=== PATIENT | female | born 1940 | race Caucasian/White ===

== ENCOUNTER → 2017-09-12 11:34 | Outpatient (CLI) | payer MEDICARE, BC, SELFPAY | PROVIDERS: PCP Internal Medicine; Visit Provider Internal Medicine | DX: R05 Cough (principal) | CPT/HCPCS: 71046 ==

== ENCOUNTER → 2017-11-30 12:08 | Outpatient (CLI) | payer MEDICARE, BC, SELFPAY ==
--- NOTE | 2017-11-30 | DI.CT.S_ITS ---
PROCEDURE: CT LE LT W CON INDICATIONS: LEFT ANKLE TECHNIQUE: Noncontrast 1-1.5 mm axial sections acquired from above the tibiotalar joint to the bottom of the calcaneus, with coronal and sagittal reformats. COMPARISON: [facility], CR, FOOT 3V LEFT, 04/09/2014, 0:20. [facility], MR, ANKLE WITHOUT CONTRAST, 12/17/2014, 12:12. [facility], CR, XR ANKLE 3VW LT, 12/23/2014, 10:18. [facility] [place], CR, XR ANKLE 3VW LT, 01/21/2015, 13:37. Also, 7 images from [facility] (right and left feet) are reviewed. The date of this set of images is not available from the CD provided. FINDINGS: Image quality: Excellent. Bones: There is relative osteopenia and no acute trauma found. Note is made of a healed distal fibular diaphyseal fracture from trauma documented in December of 2014. No acute or subacute trauma is found. There is a mild to moderate degree of thinning of the joint interspace at the tibiotalar joint, without loose body or joint effusion. At the fibular-tail are margins malalignment is not found. Small accessory ossicle measuring approximately 3 x 5 mm is present just anterior to the inferior tip of the lateral malleolus but chronic in appearance and likely an old avulsion fragment or accessory ossicle. Expected calcaneal trabecular space lucencies are present which do not indicate underlying osteomyelitis or trauma. There is a normal minimally degenerated relationship between the distal calcaneus and the adjacent cuboid bone. However, the talonavicular articulation is subluxed with the tailus directed inferiorly in relationship to the normal orientation of the proximal articular surface of the navicular bone. This has been previously present on foot plain films from 01/21/15 and has not appreciably worsened. Over the remaining hindfoot structures and articulations, and through the midfoot and visualized forefoot no trauma is found. Soft tissues: No evidence of ligamentous disruption is seen. IMPRESSION: Chronic degenerative changes and ligamentous laxity are seen, similar if not equivalent to that previously present during prior plain film imaging of the left ankle from 01/21/15. There is an associated inferior subluxation of the distal tailus articular surface against the proximal navicular bone articular surface seen on the lateral projection reformatt imaging as was previously the case also on 2015 plain films. Healed distal fibular fracture present in 2014, initially identified during ankle MR study 12/17/14. Dictated by: Jason Romeo M.D. on 11/30/2017 at 16:08 Approved by: Jason Romeo M.D. on 11/30/2017 at 16:20
== END ==
PROVIDERS: PCP Internal Medicine; Visit Provider Podiatrist
DX: S99.912A Unspecified injury of left ankle, initial encounter (principal); M25.572 Pain in left ankle and joints of left foot; E11.42 Type 2 diabetes mellitus with diabetic polyneuropathy; M14.672 Charcot's joint, left ankle and foot
CPT/HCPCS: 73700

== ENCOUNTER → 2017-12-20 07:15 | Outpatient (CLI) | payer MEDICARE, BC, SELFPAY ==
[2017-12-20 08:16] LABS: Hemoglobin A1C% w Est Avg Glu 6.2 % (4.0-6.0)
[2017-12-20 08:20] LABS: Alanine Aminotransferase 17 IU/L (9-52); Aspartate Aminotransferase 16 IU/L (14-36); BUN Creatinine Ratio 14.4 (6-22); Blood Urea Nitrogen 13 mg/dL (7-17); Calcium 8.9 mg/dL (8.4-10.2); Carbon Dioxide 30 mmol/L (22-32); Chloride 98 mmol/L (98-107); Cholesterol 171 mg/dL (140-199); Estimated Glomerular Filt Rate > 60.0 mL/min (>60); Glucose 110 mg/dL (80-110); HDL Cholesterol 68 mg/dL (40-60); HEMOLYSIS < 15 (0-50); LDL Cholesterol Calculated 87 mg/dL (<100); Potassium 4.4 mmol/L (3.4-5.1); Sodium 138 mmol/L (137-145); Triglycerides 79 mg/dL (35-150)
== END ==
PROVIDERS: PCP Internal Medicine; Visit Provider Internal Medicine
DX: E11.9 Type 2 diabetes mellitus without complications (principal); I10 Essential (primary) hypertension; E78.00 Pure hypercholesterolemia, unspecified
CPT/HCPCS: 36415; 80048; 80061; 83036; 84450; 84460

== ENCOUNTER → 2018-06-16 07:08 | Outpatient (CLI) | payer MEDICARE, SELFPAY ==
[2018-06-16 08:44] LABS: Hemoglobin A1C% w Est Avg Glu 5.8 % (4.0-6.0)
[2018-06-16 08:54] LABS: Alanine Aminotransferase 14 IU/L (9-52); Aspartate Aminotransferase 15 IU/L (14-36); BUN Creatinine Ratio 13.3 (6-22); Blood Urea Nitrogen 12 mg/dL (7-17); Carbon Dioxide 26 mmol/L (22-32); Chloride 101 mmol/L (98-107); Cholesterol 165 mg/dL (140-199); Estimated Glomerular Filt Rate > 60.0 mL/min (>60); Glucose 100 mg/dL (80-110); HDL Cholesterol 72 mg/dL (40-60); HEMOLYSIS < 15 (0-50); LDL Cholesterol Calculated 77 mg/dL (<100); Potassium 4.3 mmol/L (3.4-5.1); Sodium 137 mmol/L (137-145); Triglycerides 79 mg/dL (35-150)
[2018-06-16 09:37] LABS: TSH w/ Reflex to FT4 1.51 uIU/mL (0.47-4.68)
== END ==
PROVIDERS: PCP Internal Medicine; Visit Provider Internal Medicine
DX: I10 Essential (primary) hypertension (principal); E78.00 Pure hypercholesterolemia, unspecified; E03.9 Hypothyroidism, unspecified; E11.9 Type 2 diabetes mellitus without complications
CPT/HCPCS: 36415; 80048; 80061; 83036; 84443; 84450; 84460

== ENCOUNTER → 2018-12-14 07:15 | Outpatient (CLI) | payer MEDICARE, SELFPAY ==
[2018-12-14 08:34] LABS: Alanine Aminotransferase 11 IU/L (9-52); Aspartate Aminotransferase 16 IU/L (14-36); Blood Urea Nitrogen 12 mg/dL (7-17); Calcium 9.7 mg/dL (8.4-10.2); Carbon Dioxide 28 mmol/L (22-32); Chloride 98 mmol/L (98-107); Cholesterol 168 mg/dL (140-199); Estimated Glomerular Filt Rate > 60.0 mL/min (>60); Glucose 104 mg/dL (80-110); HDL Cholesterol 79 mg/dL (40-60); HEMOLYSIS < 15 (0-50); LDL Cholesterol Calculated 71 mg/dL (<100); Sodium 134 mmol/L (137-145); Triglycerides 88 mg/dL (35-150)
== END ==
PROVIDERS: PCP Internal Medicine; Visit Provider Internal Medicine
DX: I10 Essential (primary) hypertension (principal); E78.5 Hyperlipidemia, unspecified; E11.9 Type 2 diabetes mellitus without complications
CPT/HCPCS: 36415; 80048; 80061; 83036; 84450; 84460

== ENCOUNTER → 2019-10-12 07:11 | Outpatient (CLI) | payer MEDICARE, SELFPAY ==
[2019-10-12 09:40] LABS: Hemoglobin A1C% w Est Avg Glu 6.1 % (4.0-6.0)
[2019-10-12 10:10] LABS: Alanine Aminotransferase 8 IU/L (<35); Albumin Globulin Ratio 1.5 (1.0-2.8); Alkaline Phosphatase 69 U/L (38-126); Aspartate Aminotransferase 17 IU/L (14-36); Bilirubin Total 0.5 mg/dL (0.2-1.3); Blood Urea Nitrogen 9 mg/dL (7-17); Calcium 9.3 mg/dL (8.4-10.2); Carbon Dioxide 27 mmol/L (22-32); Chloride 98 mmol/L (98-107); Cholesterol 181 mg/dL (140-199); Estimated Glomerular Filt Rate > 60.0 mL/min (>60); Globulin 2.7 g/dL (1.7-4.1); Glucose 95 mg/dL (80-110); HDL Cholesterol 93 mg/dL (40-60); HEMOLYSIS < 15 (0-50); LDL Cholesterol Calculated 76 mg/dL (<100); Potassium 4.9 mmol/L (3.4-5.1); Sodium 133 mmol/L (137-145); Total Protein 6.7 g/dL (6.3-8.2); Triglycerides 62 mg/dL (35-150)
[2019-10-12 10:33] LABS: TSH w/ Reflex to FT4 0.98 uIU/mL (0.47-4.68)
== END ==
PROVIDERS: PCP Internal Medicine; Referring Provider Internal Medicine; Visit Provider Internal Medicine
DX: I10 Essential (primary) hypertension (principal); E78.00 Pure hypercholesterolemia, unspecified; E11.9 Type 2 diabetes mellitus without complications; E03.9 Hypothyroidism, unspecified
CPT/HCPCS: 36415; 80053; 80061; 83036; 84443

== ENCOUNTER → 2020-04-22 10:06 | Outpatient (CLI) | payer MEDICARE, SELFPAY ==
[2020-04-22 10:43] LABS: Hemoglobin A1C% w Est Avg Glu 5.8 % (4.0-6.0)
[2020-04-22 11:00] LABS: Alanine Aminotransferase 10 IU/L (<35); Albumin Globulin Ratio 1.5 (1.0-2.8); Alkaline Phosphatase 71 U/L (38-126); Aspartate Aminotransferase 22 IU/L (14-36); BUN Creatinine Ratio 14.5 (6-22); Bilirubin Total 0.3 mg/dL (0.2-1.3); Blood Urea Nitrogen 11 mg/dL (7-17); Calcium 9.2 mg/dL (8.4-10.2); Carbon Dioxide 30 mmol/L (22-32); Chloride 97 mmol/L (98-107); Cholesterol 182 mg/dL (140-199); Estimated Glomerular Filt Rate > 60.0 mL/min (>60); Globulin 2.7 g/dL (1.7-4.1); Glucose 89 mg/dL (80-110); HDL Cholesterol 75 mg/dL (40-60); HEMOLYSIS < 15 (0-50); LDL Cholesterol Calculated 87 mg/dL (<100); Potassium 4.6 mmol/L (3.4-5.1); Sodium 130 mmol/L (137-145); Total Protein 6.7 g/dL (6.3-8.2); Triglycerides 100 mg/dL (35-150)
== END ==
PROVIDERS: PCP Internal Medicine; Referring Provider Internal Medicine; Visit Provider Internal Medicine
DX: I10 Essential (primary) hypertension (principal); E11.9 Type 2 diabetes mellitus without complications; E78.5 Hyperlipidemia, unspecified
CPT/HCPCS: 36415; 80053; 80061; 83036

== ENCOUNTER → 2020-07-08 12:45 | Outpatient (CLI) | payer MEDICARE, SELFPAY ==
--- NOTE | 2020-07-08 | DI.MG.S_ITS ---
BILATERAL DIGITAL DIAGNOSTIC MAMMOGRAM 3D/2D: 07/08/2020 CLINICAL: Right breast heaviness. Comparison is made to exams dated: 10/12/2016 mammogram, 09/27/2014 mammogram, and 09/26/2013 mammogram - [facility]. There are scattered fibroglandular elements in both breasts. 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 No significant masses, suspicious calcifications, or other findings are seen in either breast. IMPRESSION: INCOMPLETE: NEEDS ADDITIONAL IMAGING EVALUATION There is no abnormality seen in the right breast to correspond with the tenderness at 12 o'clock, however, ultrasound is recommended. Ultrasound will be performed immediately following the current exam. This exam was interpreted at Station ID: [id number]. NOTE: For mammograms, a report in lay terms will be sent to the patient. Approximately 15% of breast malignancies will not be visualized mammographically. In the management of a palpable breast mass, a negative mammogram must not discourage biopsy of a clinically suspicious lesion. Electronically Signed By: Kobe Jameson M.D. [email or web address]/:07/08/2020 13:34:01 ACR BI-RADS Category 0: Incomplete 3340F
--- NOTE | 2020-07-08 | DI.US.S_ITS ---
LIMITED ULTRASOUND OF RIGHT BREAST: 07/08/2020 CLINICAL: Focal right breast pain. Comparison is made to exams dated: 07/08/2020 mammogram, 10/12/2016 mammogram, 09/27/2014 mammogram, 09/26/2013 mammogram, 09/25/2012 mammogram, and 09/23/2011 mammogram - [facility]. Real-time ultrasound of the right breast 11-1 o'clock region was performed on the area of interest. No discrete cystic or solid mass lesion identified in the area of focal pain. IMPRESSION: NEGATIVE There is no sonographic evidence of malignancy. There are no abnormalities seen in the right breast to correspond with the pain at 11-1 o'clock, however, clinical followup is recommended. A 1 year screening mammogram is recommended. This exam was interpreted at Station ID: [id number]. Electronically Signed By: Kobe Jameson M.D. ddp/:07/08/2020 14:06:32 letter sent: Clinical Evaluation Ultrasound BI-RADS: 1 Negative
== END ==
PROVIDERS: PCP Internal Medicine; Referring Provider Internal Medicine; Visit Provider Internal Medicine
DX: R92.8 Other abnormal and inconclusive findings on diagnostic imaging of breast (principal); N64.4 Mastodynia
CPT/HCPCS: 76642; 77066; G0279

== ENCOUNTER → 2020-11-28 07:17 | Outpatient (CLI) | payer MEDICARE, SELFPAY ==
[2020-11-28 08:26] LABS: Hemoglobin A1C% w Est Avg Glu 5.9 % (4.0-6.0)
[2020-11-28 08:30] LABS: Alanine Aminotransferase 10 IU/L (<35); Albumin Globulin Ratio 1.6 (1.0-2.8); Alkaline Phosphatase 62 U/L (38-126); Aspartate Aminotransferase 17 IU/L (14-36); BUN Creatinine Ratio 12.5 (6-22); Bilirubin Total 0.4 mg/dL (0.2-1.3); Blood Urea Nitrogen 9 mg/dL (7-17); Calcium 9.2 mg/dL (8.4-10.2); Carbon Dioxide 32 mmol/L (22-32); Chloride 93 mmol/L (98-107); Cholesterol 184 mg/dL (140-199); Estimated Glomerular Filt Rate > 60.0 mL/min (>60); Globulin 2.5 g/dL (1.7-4.1); Glucose 114 mg/dL (80-110); HDL Cholesterol 96 mg/dL (40-60); HEMOLYSIS < 15 (0-50); LDL Cholesterol Calculated 76 mg/dL (<100); Potassium 4.7 mmol/L (3.4-5.1); Sodium 128 mmol/L (137-145); Total Protein 6.5 g/dL (6.3-8.2); Triglycerides 61 mg/dL (35-150)
[2020-11-28 16:17] LABS: Microalbumi Creatinin Ratio Ur 64.4 ug/mg CR (<30); Microalbumin Urine Random 3.8 mg/dL (0-1.6)
== END ==
PROVIDERS: PCP Internal Medicine; Referring Provider Internal Medicine; Visit Provider Internal Medicine
DX: M81.0 Age-related osteoporosis without current pathological fracture (principal); E11.9 Type 2 diabetes mellitus without complications; E78.5 Hyperlipidemia, unspecified; I10 Essential (primary) hypertension
CPT/HCPCS: 36415; 80053; 80061; 82043; 82306; 82570; 83036

== ENCOUNTER 2021-04-02 10:29 | Emergency (ER) | payer MEDICARE, SELFPAY ==
[2021-04-02] VITALS (12 sets, daily range): BP systolic 139–192; BP diastolic 65–80; PULSE 71–91; RESP 15–24; TEMP 36.6; O2SAT 96–100; BMI 30.4
--- NOTE | 2021-04-02 10:38 | DI.RAD.S_ITS ---
PROCEDURE: XR CHEST 1V INDICATIONS: chest pain TECHNIQUE: One view of the chest was acquired. COMPARISON: [facility], CR, XR CHEST 2V, 09/12/2017, 11:54. FINDINGS: Surgical changes and devices: None. Lungs and pleura: Lungs are clear. No pleural effusions or pneumothorax. Mediastinum: Mediastinal contours appear normal. Heart size is normal. Atherosclerotic vascular calcification noted in the aortic arch. Bones and chest wall: No suspicious bony lesions. Overlying soft tissues appear unremarkable. IMPRESSION: No acute cardiopulmonary findings Approved by: Dylan Farah M.D. on 04/02/2021 at 10:26
--- NOTE | 2021-04-02 10:54 | ED.GENADULT ---
HPI - General Adult General Chief complaint: Dizziness Stated complaint: Irregular heartbeat- sent by [facility] Time Seen by Provider: 04/02/21 10:39 Source: patient Mode of arrival: Ambulatory History of Present Illness HPI narrative: Patient is an 80-year-old female. History of high blood pressure. Not on anticoagulation who is sent over from the walk-in clinic for evaluation of approximately 1 week of occasional episodes of having palpitations and lightheadedness. The most recent event was this morning. She feels that it occurs mostly when she stands up. Lasts seconds to minutes and then resolves. No chest pain associated with this. No fevers. Has never had anything like this in the past. Has been taking all of her medications as directed. Related Data Home Medications Medication Instructions Recorded Confirmed AZELASTINE HYDROCHLORIDE (ASTELIN) 2 spray INTRANASAL PRN PRN #200 05/02/12 actuation LEVOTHYROXINE SODIUM (#LEVOTHROID 0.1 mg PO QDAY #0 05/02/12 OFF MARKET) albuterol sulfate 90 mcg/actuation 1 puff INH #8.5 gm 05/02/12 aerosol inhaler (Proventil HFA) atorvastatin 10 mg tablet (Lipitor) 10 mg PO HS #0 05/02/12 cholecalciferol (vitamin D3) 10 5,000 unit PO QDAY #0 05/02/12 mcg (400 unit) chewable tablet (Vitamin D3) hydrochlorothiazide 12.5 mg 25 mg PO QDAY #0 05/02/12 capsule (Microzide) raloxifene 60 mg tablet (Evista) 60 mg PO QDAY #0 05/02/12 ACETAMINOPHEN 325 mg PO Q4HP #0 10/16/12 COENZYME Q10/VITAMIN E (CO-Q-10) 200 mg PO QDAY #0 10/16/12 ascorbic acid (vitamin C) 500 mg 500 mg PO QDAY #0 10/16/12 tablet celecoxib 200 mg capsule (Celebrex) 200 mg PO QDAY #0 10/16/12 docusate sodium 100 mg capsule 100 PO PRN #0 10/16/12 esomeprazole magnesium 40 mg 40 mg PO QPM #0 10/16/12 capsule,delayed release (Nexium) liothyronine 5 mcg tablet (Cytomel) 5 mcg PO HS #0 10/16/12 metformin 500 mg tablet 500 mg PO TIDCC #0 10/16/12 (Glucophage) psyllium husk 0.52 gram capsule 0.52 gm PO QDAY #0 10/16/12 (Metamucil) fluticasone 250 mcg-salmeterol 50 1 puff INH BID #0 12/02/15 mcg/dose blistr powdr for inhalation (Advair Diskus) betamethasone dipropionate 0.05 % 1 papa TOPICAL PRN PRN #0 06/01/16 topical cream clobetasol-emollient 0.05 % 1 papa TOPICAL PRN PRN #0 06/01/16 topical cream Previous Rx's Medication Instructions Recorded aspirin 81 mg tablet,delayed 81 mg PO BID #60 tab 06/18/16 release hydroxyzine pamoate 25 mg capsule 25 mg PO Q4HP PRN #60 cap 06/18/16 (Vistaril) oxycodone 5 mg tablet 5 mg PO Q4HP PRN #90 tab 06/18/16 Allergies Allergy/AdvReac Type Severity Reaction Status Date / Time adhesive tape [ADHESIVE TAPE] Allergy Severe PAPER TAPE Verified 04/02/21 10:39 CAUSES RASH, BLISTERS Review of Systems Constitutional Constitutional: Denies fever(s) and Denies headache(s) ENT Ears, Nose, Mouth, and Throat: Denies headache(s) Cardiovascular Cardiovascular: Denies chest pain, Denies syncope, Reports rapid heart rate, Reports lightheadedness and Denies dyspnea Respiratory Respiratory: Denies dyspnea Gastrointestinal Gastrointestinal: Denies nausea and Denies vomiting Musculoskeletal Musculoskeletal: Reports system reviewed and no additional complaints, except as documented Integumentary/Breasts Skin/Breast: Reports system reviewed and no additional complaints, except as documented Neurologic Neurologic: Denies syncope and Denies headache(s) Hematologic/Lymphatic On Anticoagulants: No Patient History Social History Smoking Status: Unknown if ever smoked Smoking Status: Unknown if ever smoked alcohol intake frequency: holidays/special occasions only Substance Use Type: does not use Exam Initial Vital Signs Initial Vital Signs: Vital Signs Temperature 97.8 F 04/02/21 10:34 Pulse Rate 71 04/02/21 10:34 Respiratory Rate 19 04/02/21 10:34 Blood Pressure 192/80 H 04/02/21 10:34 Pulse Oximetry 100 04/02/21 10:34 HENMT Head: normal to inspection and normocephalic Eyes General: appearance normal, both eyes and all related structures Resp Effort & Inspection: normal respiratory effort Auscultation: clear to auscultation bilaterally Cardio Rate: regular rate Rhythm: regular rhythm GI Inspection: normal to inspection Skin General: no rashes or lesions noted Neuro General: patient alert, patient awake, patient oriented x3 and moves all extremities Extrem General: normal to inspection and capillary refill normal Psych Appearance: grossly normal and well kempt Scores GCS Jamul coma scale eye opening: Spontaneous Jamul coma scale verbal response: Orientated Diaz coma scale motor response: Obey commands Jamul coma scale total score: 15 Course Orders Ordered: ED Orders 04/02/21 10:00 Thyroid Stimulating Hormone Stat 04/02/21 10:38 XR chest 1V Stat Complete Blood Count AUTO DIFF Stat Comprehensive Metabolic Panel Stat Lipase Stat Magnesium Stat Troponin & CK Cardiac Panel Stat EKG-12 Lead Stat 04/02/21 10:39 Partial Thromboplastin Time Stat Prothrombin Time INR Stat Discontinued Medications Sodium Chloride (Normal Saline 0.9%) 1,000 mls @ 500 mls/hr IV BOLUS ONE Stop: 04/02/21 12:55 Last Infusion: 04/02/21 13:21 Dose: 0 mls/hr Documented by: Admin: 04/02/21 11:06 Dose: 500 mls/hr Documented by: EDER Vital Signs Vital signs: Vital Signs - 8 hr 04/02/21 10:34 04/02/21 10:35 04/02/21 10:48 Temperature 97.8 F Pulse Rate 71 76 74 Pulse Rate [Orthostatic Lying] Pulse Rate [Orthostatic Sitting] Pulse Rate [Orthostatic Standing] Respiratory Rate 19 24 Blood Pressure 192/80 H 192/80 H 170/71 H Blood Pressure [Orthostatic Lying] Blood Pressure [Orthostatic Sitting] Blood Pressure [Orthostatic Standing] Pulse Oximetry 100 98 98 04/02/21 10:49 04/02/21 10:51 04/02/21 11:00 Temperature Pulse Rate 81 76 Pulse Rate [Orthostatic Lying] 75 Pulse Rate [Orthostatic Sitting] 74 Pulse Rate [Orthostatic Standing] 75 Respiratory Rate 18 18 Blood Pressure 151/68 H 159/69 H Blood Pressure [Orthostatic Lying] 192/80 H Blood Pressure [Orthostatic Sitting] 170/71 H Blood Pressure [Orthostatic Standing] 151/68 H Pulse Oximetry 98 98 04/02/21 11:30 04/02/21 11:40 04/02/21 12:00 Temperature Pulse Rate 75 88 75 Pulse Rate [Orthostatic Lying] Pulse Rate [Orthostatic Sitting] Pulse Rate [Orthostatic Standing] Respiratory Rate 18 15 19 Blood Pressure 139/65 Blood Pressure [Orthostatic Lying] Blood Pressure [Orthostatic Sitting] Blood Pressure [Orthostatic Standing] Pulse Oximetry 99 100 100 04/02/21 12:30 04/02/21 13:00 04/02/21 13:30 Temperature Pulse Rate 83 78 91 H Pulse Rate [Orthostatic Lying] Pulse Rate [Orthostatic Sitting] Pulse Rate [Orthostatic Standing] Respiratory Rate 20 18 23 Blood Pressure Blood Pressure [Orthostatic Lying] Blood Pressure [Orthostatic Sitting] Blood Pressure [Orthostatic Standing] Pulse Oximetry 100 100 96 Medical Decision Making Lab Data Lab results reviewed: Yes I reviewed the patient's lab results. Result diagrams: 04/02/21 10:38 04/02/21 10:38 Labs: Lab Results 04/02/21 04/02/21 04/02/21 Range/Units 10:00 10:38 10:38 WBC 8.7 (4.5-11.0) X10^3/uL RBC 4.34 (4.0-5.2) X10^6/uL Hgb 11.2 L (12.0-16.0) g/dL Hct 34.4 L (36-46) % MCV 79.3 L (80-100) fL MCH 25.8 L (26-34) PG MCHC 32.5 (30-36) % RDW 17.1 H (11.6-14.8) % Plt Count 370 (150-400) X10^3/uL Neut % (Auto) 73.5 (50-75) % Lymph % (Auto) 15.8 L (25-40) % [place] % (Auto) 8.0 (3-14) % Eos % (Auto) 2.0 (2-4) % Baso % (Auto) 0.7 (0-2) % Neut # (Auto) 6400 (4926-8164) /uL Lymph # (Auto) 1400 (6274-0470) /uL [place] # (Auto) 700 (0-900) /uL Eos # (Auto) 200 (0-450) /uL Baso # (Auto) 100 (0-100) /uL PT (10.1-12.7) SECONDS INR (0.9-1.3) APTT (26.4-36.2) SECONDS Sodium 129 L (137-145) mmol/L Potassium 4.3 (3.4-5.1) mmol/L Chloride 98 (98-107) mmol/L Carbon Dioxide 25 (22-32) mmol/L BUN 10 (7-17) mg/dL Creatinine 0.73 (0.52-1.04) mg/dL Estimated GFR > 60.0 (>60) mL/min BUN/Creatinine Ratio 13.7 (6-22) Glucose 105 (80-110) mg/dL Calcium 9.0 (8.4-10.2) mg/dL Magnesium 1.7 (1.6-2.3) mg/dL Total Bilirubin 0.5 (0.2-1.3) mg/dL AST 19 (14-36) IU/L ALT 10 (<35) IU/L Alkaline Phosphatase 65 (38-126) U/L Total Creatine Kinase 27 L (30-135) U/L CK-MB (CK-2) TNP CK-MB (CK-2) Rel Index TNP Troponin I < 0.012 (0.01-0.034) ng/mL Total Protein 6.8 (6.3-8.2) g/dL Albumin 4.0 (3.5-5.0) g/dL Globulin 2.8 (1.7-4.1) g/dL Albumin/Globulin Ratio 1.4 (1.0-2.8) Lipase 114 (23-300) U/L TSH 0.709 (0.47-4.68) uIU/mL 04/02/21 Range/Units 10:39 WBC (4.5-11.0) X10^3/uL RBC (4.0-5.2) X10^6/uL Hgb (12.0-16.0) g/dL Hct (36-46) % MCV (80-100) fL MCH (26-34) PG MCHC (30-36) % RDW (11.6-14.8) % Plt Count (150-400) X10^3/uL Neut % (Auto) (50-75) % Lymph % (Auto) (25-40) % [place] % (Auto) (3-14) % Eos % (Auto) (2-4) % Baso % (Auto) (0-2) % Neut # (Auto) (0719-9740) /uL Lymph # (Auto) (7764-6637) /uL [place] # (Auto) (0-900) /uL Eos # (Auto) (0-450) /uL Baso # (Auto) (0-100) /uL PT 11.6 (10.1-12.7) SECONDS INR 1.0 (0.9-1.3) APTT 34 (26.4-36.2) SECONDS Sodium (137-145) mmol/L Potassium (3.4-5.1) mmol/L Chloride (98-107) mmol/L Carbon Dioxide (22-32) mmol/L BUN (7-17) mg/dL Creatinine (0.52-1.04) mg/dL Estimated GFR (>60) mL/min BUN/Creatinine Ratio (6-22) Glucose (80-110) mg/dL Calcium (8.4-10.2) mg/dL Magnesium (1.6-2.3) mg/dL Total Bilirubin (0.2-1.3) mg/dL AST (14-36) IU/L ALT (<35) IU/L Alkaline Phosphatase (38-126) U/L Total Creatine Kinase (30-135) U/L CK-MB (CK-2) CK-MB (CK-2) Rel Index Troponin I (0.01-0.034) ng/mL Total Protein (6.3-8.2) g/dL Albumin (3.5-5.0) g/dL Globulin (1.7-4.1) g/dL Albumin/Globulin Ratio (1.0-2.8) Lipase (23-300) U/L TSH (0.47-4.68) uIU/mL Urine Dip Bedside Urine Glucose Negative Bedside Urine Bilirubin - Negative Bedside Urine Ketone - Negative Urine Specific [place] 1.015 Bedside Urine Occult Blood - Negative Bedside Urine pH 6.5 Bedside Urine Protein - Negative Bedside Urine Urobilinogen +/- 1mg Bedside Urine Nitrite - Negative Bedside Urine Leukocytes - Negative Esterase Point of care testing: Urine Dip Bedside Urine Glucose Negative Bedside Urine Bilirubin - Negative Bedside Urine Ketone - Negative Urine Specific [place] 1.015 Bedside Urine Occult Blood - Negative Bedside Urine pH 6.5 Bedside Urine Protein - Negative Bedside Urine Urobilinogen +/- 1mg Bedside Urine Nitrite - Negative Bedside Urine Leukocytes - Negative Esterase Imaging Data Chest x-ray: Radiologist's Impression: [address] [id number] XRay Report Signed Patient: Layla Chowdary MR#: [id number] : 1940 Acct:[id number] Age/Sex: 80 / F Date of Service: 04/02/21 Loc: ED Accession Number: [id number] ?? Procedure: XR chest 1V Ordering Provider: Donte Holt D.O. PROCEDURE:? XR CHEST 1V ? INDICATIONS:? chest pain ? TECHNIQUE:? One view of the chest was acquired.? ? COMPARISON:? [facility], , XR CHEST 2V, 09/12/2017, 11:54. ? FINDINGS:? ? Surgical changes and devices:? None.? ? Lungs and pleura:? Lungs are clear.? No pleural effusions or pneumothorax.? ? Mediastinum:? Mediastinal contours appear normal.? Heart size is normal.? Atherosclerotic vascular calcification noted in the aortic arch. ? Bones and chest wall:? No suspicious bony lesions.? Overlying soft tissues appear unremarkable.? ? IMPRESSION:? No acute cardiopulmonary findings ? ? ? Approved by: Dylan Farah M.D. on 04/02/2021 at 10:26? ECG Data Attestation: I personally reviewed and interpreted this ECG as follows: Interpretation: Sinus rhythm Ventricular rate of 78 Left axis deviation Normal QRS Normal QTC No ST T wave changes Sinus rhythm Ventricular rate is 77 First-degree AV block. Overall to 6 6 milliseconds Normal QRS Normal QTC No ST T changes MDM Narrative Medical decision making narrative: Patient was orthostatic. Was given fluids. She did have episodes of tachycardia here in the ER. Appear to be a sinus tachycardia on the monitor. We were unable to catch this on an EKG. Rest of the patient's labs are unremarkable. She states she would like to be discharged. We did discuss being careful and avoiding falling and following up with her primary doctor to discuss a Holter monitor. Discussed return precautions. She expressed understanding and agreement. Discharge Plan Departure Patient Disposition: Home Clinical Impression: Heart palpitations Instructions: DI for Arrhythmias Activity Restrictions/Additional Instructions: I do recommend that you continue to take all of your medications as directed. Please contact your primary doctor to discuss a follow-up and to discuss the indications for a Holter monitor. Return to the emergency department for any new or worsening symptoms. Prescriptions: No Action atorvastatin [Lipitor] 10 MG tablet 10 mg PO HS Qty: 0 0RF hydrochlorothiazide [Microzide] 12.5 MG capsule 25 mg PO QDAY Qty: 0 0RF raloxifene [Evista] 60 MG tablet 60 mg PO QDAY Qty: 0 0RF LEVOTHYROXINE SODIUM (#LEVOTHROID OFF MARKET) 0.1 mg PO QDAY Qty: 0 0RF AZELASTINE HYDROCHLORIDE (ASTELIN) 2 spray Intranasal PRN PRNQty: 200 0RF albuterol sulfate [Proventil HFA] 90 MCG/PUFF HFA aerosol inhaler 1 puff INH Qty: 8.5 0RF cholecalciferol (vitamin D3) [Vitamin D3] 400 UNIT tablet,chewable 5,000 unit PO QDAY Qty: 0 0RF metformin [Glucophage] 500 MG tablet 500 mg PO TIDCC Qty: 0 0RF esomeprazole magnesium [Nexium] 40 MG capsule,delayed release(DR/EC) 40 mg PO QPM Qty: 0 0RF COENZYME Q10/VITAMIN E (CO-Q-10) 200 mg PO QDAY Qty: 0 0RF liothyronine [Cytomel] 5 MCG tablet 5 mcg PO HS Qty: 0 0RF celecoxib [Celebrex] 200 MG capsule 200 mg PO QDAY Qty: 0 0RF docusate sodium 100 MG capsule 100 PO PRN Qty: 0 0RF psyllium husk [Metamucil] 0.52 GM capsule 0.52 gm PO QDAY Qty: 0 0RF ACETAMINOPHEN 325 mg PO Q4HP Qty: 0 0RF ascorbic acid (vitamin C) 500 MG tablet 500 mg PO QDAY Qty: 0 0RF fluticasone propion-salmeterol [Advair Diskus] 250 MCG/50 MCG blister with device 1 puff INH BID Qty: 0 0RF betamethasone dipropionate 0.05 % cream 1 papa Topical PRN PRNQty: 0 0RF clobetasol-emollient 0.05 % cream 1 papa Topical PRN PRNQty: 0 0RF aspirin 81 MG tablet,delayed release (DR/EC) 81 mg PO BID Qty: 60 1RF oxycodone 5 MG tablet 5 mg PO Q4HP PRNQty: 90 0RF hydroxyzine pamoate [Vistaril] 25 MG capsule 25 mg PO Q4HP PRNQty: 60 1RF Referrals: Miriam Sheridan MD [Primary Care Provider] -
[2021-04-02 11:06] LABS: Add Manual Diff / Slide Review NO; Basophils Absolute Auto 100 /uL (0-100); Basophils Percent Auto 0.7 % (0-2); Eosinophils Absolute Auto 200 /uL (0-450); Hematocrit 34.4 % (36-46); Hemoglobin 11.2 g/dL (12.0-16.0); Lymphocytes Absolute Auto 1400 /uL (1100-4500); Lymphocytes Percent Auto 15.8 % (25-40); Mean Corpuscular HGB Conc 32.5 % (30-36); Mean Corpuscular Hemoglobin 25.8 PG (26-34); Mean Corpuscular Volume 79.3 fL (80-100); Monocytes Absolute Auto 700 /uL (0-900); Neutrophils Absolute Auto 6400 /uL (1500-7000); Neutrophils Percent Auto 73.5 % (50-75); Platelet Count 370 X10^3/uL (150-400); Red Blood Cell Count 4.34 X10^6/uL (4.0-5.2); Red Cell Distribution Width 17.1 % (11.6-14.8); White Blood Cell Count 8.7 X10^3/uL (4.5-11.0)
[2021-04-02 11:06] LABS: Prothrombin Time 11.6 SECONDS (10.1-12.7)
[2021-04-02] MEDS: SODIUM CHLORIDE 0.9% 1,000 ML 500 ML IV (11:06)
[2021-04-02 11:11] LABS: Alanine Aminotransferase 10 IU/L (<35); Albumin Globulin Ratio 1.4 (1.0-2.8); Alkaline Phosphatase 65 U/L (38-126); Aspartate Aminotransferase 19 IU/L (14-36); BUN Creatinine Ratio 13.7 (6-22); Bilirubin Total 0.5 mg/dL (0.2-1.3); Blood Urea Nitrogen 10 mg/dL (7-17); Carbon Dioxide 25 mmol/L (22-32); Chloride 98 mmol/L (98-107); Creatine Kinase 27 U/L (30-135); Estimated Glomerular Filt Rate > 60.0 mL/min (>60); Globulin 2.8 g/dL (1.7-4.1); Glucose 105 mg/dL (80-110); HEMOLYSIS < 15 (0-50); Lipase 114 U/L (23-300); Magnesium 1.7 mg/dL (1.6-2.3); Potassium 4.3 mmol/L (3.4-5.1); Sodium 129 mmol/L (137-145); Total Protein 6.8 g/dL (6.3-8.2)
[2021-04-02 11:16] LABS: PTT Partial Thromboplastin Tim 34 SECONDS (26.4-36.2)
--- NOTE | 2021-04-02 11:21 | PC.NURSE ---
Pt heart rate noted to be in the 130's post ambulation to the bathroom, Dr. oHlt aware, heart rate now 71 after resting on stretcher.
[2021-04-02 11:23] LABS: Troponin I < 0.012 ng/mL (0.01-0.034)
[2021-04-02 12:00] LABS: Thyroid Stimulating Hormone 0.709 uIU/mL (0.47-4.68)
--- NOTE | 2021-04-02 12:11 | PC.NURSE ---
Pt hit call arian and reports she wants to leave, pt currently hooked up to EKG machine by RT. Updated pt on current plan of care. Pt further states she wants to leave, states she is a diabetic and wants a real meal, informed pt we can check her blood sugar, pt declined. Notified Dr. Holt to further speak to pt.
== END 2021-04-02 13:42 | disposition home or self-care (01) ==
PROVIDERS: Emergency Provider Emergency Medicine; PCP Internal Medicine
DX: R00.2 Palpitations (principal)
CPT/HCPCS: 36415; 71045; 80053; 81003; 82550; 83690; 83735; 84443; 84484; 85025; 85610; 85730; 93005; 96360; 96361; 99284

== ENCOUNTER → 2021-04-16 15:22 | Outpatient (CLI) | payer MEDICARE, SELFPAY ==
--- NOTE | 2021-05-05 10:07 | P.HOLT.S_ITS ---
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 Date Patient Seen: 04/16/21 Requesting provider: Miriam Sheridan Indication: Palpitations Duration of monitoring (days): 7 Diary information: There was 1 patient triggered event and 2 patient diary entries All 3 of these patient events were variably associated with (within 45 seconds) sinus rhythm, simple PACs, and simple PVCs Data: Minimum heart rate identified was 44 beats per minute at 03:59 on 04/19/2021 Maximum sinus heart rate was 122 beats per minute at 08:04 on 04/18/2021 Maximum overall heart rate was 200 beats per minute at 14:01 on 04/21/2021 during a run of SVT Less than 1% of identified beats were ventricular or supraventricular ectopic in origin, which would classify them as rare. 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 There were also occasional very brief runs of SVT as above Clinical correlation suggested
== END ==
PROVIDERS: PCP Internal Medicine; Referring Provider Family Medicine Adult Medicine; Visit Provider Family Medicine Adult Medicine
DX: R00.2 Palpitations (principal)
CPT/HCPCS: 93242; 93244

== ENCOUNTER → 2021-07-10 14:12 | Outpatient (CLI) | payer MEDICARE, SELFPAY ==
--- NOTE | 2021-07-10 | DI.MG.S_ITS ---
BILATERAL DIGITAL SCREENING MAMMOGRAM 3D/2D WITH CAD: 07/10/2021 CLINICAL: Routine screening. Family history of breast cancer. Comparison is made to exams dated: 07/08/2020 ultrasound, 07/08/2020 mammogram, 10/12/2016 mammogram, and 09/27/2014 mammogram - [facility]. The tissue of both breasts is predominantly fatty. Current study was also evaluated with a Computer Aided Detection (CAD) system. There are benign diffuse calcifications in both breasts. There also are benign vascular calcifications in both breasts. No significant masses, calcifications, or other findings are seen in either breast. There has been no significant interval change. IMPRESSION: BENIGN There is no mammographic evidence of malignancy. A 1 year screening mammogram is recommended. This exam was interpreted at Station ID: [id number]. NOTE: For mammograms, a report in lay terms will be sent to the patient. Approximately 15% of breast malignancies will not be visualized mammographically. In the management of a palpable breast mass, a negative mammogram must not discourage biopsy of a clinically suspicious lesion. Electronically Signed By: Phi pearson/omid:07/10/2021 15:31:00 letter sent: Normal Exam ACR BI-RADS Category 2: Benign Finding(s) 3342F
== END ==
PROVIDERS: PCP Internal Medicine; Referring Provider Internal Medicine; Visit Provider Internal Medicine
DX: Z12.31 Encounter for screening mammogram for malignant neoplasm of breast (principal); Z80.3 Family history of malignant neoplasm of breast
CPT/HCPCS: 77063; 77067

== ENCOUNTER → 2021-09-15 07:16 | Outpatient (CLI) | payer MEDICARE, SELFPAY ==
[2021-09-15 07:58] LABS: Hemoglobin A1C% w Est Avg Glu 5.9 % (4.0-6.0)
[2021-09-15 08:10] LABS: Alanine Aminotransferase 9 IU/L (<35); Albumin 3.8 g/dL (3.5-5.0); Albumin Globulin Ratio 1.5 (1.0-2.8); Alkaline Phosphatase 61 U/L (38-126); Aspartate Aminotransferase 18 IU/L (14-36); BUN Creatinine Ratio 12.3 (6-22); Bilirubin Total 0.3 mg/dL (0.2-1.3); Blood Urea Nitrogen 9 mg/dL (7-17); Calcium 8.2 mg/dL (8.4-10.2); Carbon Dioxide 28 mmol/L (22-32); Chloride 97 mmol/L (98-107); Cholesterol 164 mg/dL (140-199); Estimated Glomerular Filt Rate > 60 mL/min (>60); Globulin 2.6 g/dL (1.7-4.1); Glucose 115 mg/dL (80-110); HDL Cholesterol 77 mg/dL (40-60); HEMOLYSIS < 15 (0-50); LDL Cholesterol Calculated 78 mg/dL (<100); Potassium 4.5 mmol/L (3.4-5.1); Sodium 128 mmol/L (137-145); Total Protein 6.4 g/dL (6.3-8.2); Triglycerides 44 mg/dL (35-150)
[2021-09-15 15:33] LABS: Microalbumin Urine Random 2.4 mg/dL (0-1.6)
[2021-09-15 15:35] LABS: Creatinine Urine Random 98.6 mg/dL; Microalbumi Creatinin Ratio Ur 24.3 ug/mg CR (<30)
== END ==
PROVIDERS: PCP Internal Medicine; Referring Provider Internal Medicine; Visit Provider Internal Medicine
DX: E78.5 Hyperlipidemia, unspecified (principal); E11.9 Type 2 diabetes mellitus without complications
CPT/HCPCS: 36415; 80053; 80061; 82043; 82570; 83036

== ENCOUNTER → 2022-03-24 07:15 | Outpatient (CLI) | payer MEDICARE, SELFPAY ==
[2022-03-24 08:13] LABS: Add Manual Diff / Slide Review NO; Basophils Absolute Auto 100 /uL (0-100); Basophils Percent Auto 0.8 % (0-2); Eosinophils Absolute Auto 200 /uL (0-450); Hematocrit 34.3 % (36-46); Lymphocytes Absolute Auto 1900 /uL (1100-4500); Lymphocytes Percent Auto 21.4 % (25-40); Mean Corpuscular HGB Conc 32.1 % (30-36); Mean Corpuscular Hemoglobin 25.1 PG (26-34); Monocytes Absolute Auto 700 /uL (0-900); Monocytes Percent Auto 7.5 % (3-14); Neutrophils Absolute Auto 6200 /uL (1500-7000); Neutrophils Percent Auto 68.3 % (50-75); Platelet Count 387 X10^3/uL (150-400); Red Cell Distribution Width 17.2 % (11.6-14.8); White Blood Cell Count 9.1 X10^3/uL (4.5-11.0)
[2022-03-24 08:20] LABS: Hemoglobin A1C% w Est Avg Glu 6.1 % (4.0-6.0)
[2022-03-24 08:44] LABS: Alanine Aminotransferase 12 IU/L (<35); Albumin 3.9 g/dL (3.5-5.0); Albumin Globulin Ratio 1.3 (1.0-2.8); Alkaline Phosphatase 68 U/L (38-126); Aspartate Aminotransferase 19 IU/L (14-36); BUN Creatinine Ratio 14.1 (6-22); Bilirubin Total 0.4 mg/dL (0.2-1.3); Blood Urea Nitrogen 11 mg/dL (7-17); Calcium 8.9 mg/dL (8.4-10.2); Carbon Dioxide 28 mmol/L (22-32); Chloride 92 mmol/L (98-107); Cholesterol 186 mg/dL (140-199); Estimated Glomerular Filt Rate > 60 mL/min (>60); Glucose 110 mg/dL (80-110); HDL Cholesterol 86 mg/dL (40-60); HEMOLYSIS < 15 (0-50); LDL Cholesterol Calculated 86 mg/dL (<100); Potassium 4.8 mmol/L (3.4-5.1); Sodium 129 mmol/L (137-145); Total Protein 6.9 g/dL (6.3-8.2); Triglycerides 69 mg/dL (35-150)
[2022-03-24 08:59] LABS: TSH w/ Reflex to FT4 1.28 uIU/mL (0.47-4.68)
[2022-03-24 15:33] LABS: Creatinine Urine Random 44.7 mg/dL; Microalbumi Creatinin Ratio Ur 111.8 ug/mg CR (<30)
== END ==
PROVIDERS: PCP Internal Medicine; Referring Provider Internal Medicine; Visit Provider Internal Medicine
DX: E03.9 Hypothyroidism, unspecified (principal); E11.9 Type 2 diabetes mellitus without complications; E78.5 Hyperlipidemia, unspecified
CPT/HCPCS: 36415; 80053; 80061; 82043; 82570; 83036; 84443; 85025

== ENCOUNTER → 2022-04-05 11:00 | Outpatient (CLI) | payer MEDICARE, SELFPAY ==
--- NOTE | 2022-04-05 | DI.RAD.S_ITS ---
PROCEDURE: XR CHEST 2V INDICATIONS: chronic cough TECHNIQUE: 2 views of the chest were acquired. COMPARISON: [facility], CR, XR CHEST 1V, 04/02/2021, 10:54. FINDINGS: Surgical changes and devices: None. Lungs and pleura: There is slight loss of the hemidiaphragm visualization at the left base. Mediastinum: Mediastinal contours are normal. Heart size is mildly enlarged.. Bones and chest wall: No suspicious bony abnormalities. Soft tissues appear unremarkable. IMPRESSION: Loss of hemidiaphragm contour at the left base possibly secondary to minimal effusion versus dependent change such as atelectasis. Developing pneumonia cannot be definitively excluded. Dictated by: Crista Melo M.D. on 04/05/2022 at 15:39 Approved by: Crista Melo M.D. on 04/05/2022 at 15:39
== END ==
PROVIDERS: PCP Internal Medicine; Referring Provider Internal Medicine; Visit Provider Internal Medicine
DX: R05.3 Chronic cough (principal)
CPT/HCPCS: 71046

== ENCOUNTER 2022-05-06 13:06 | Outpatient (RCR) | payer MEDICARE, SELFPAY ==
--- NOTE | 2022-05-07 17:37 | ST.OPIE ---
Addendum entered and electronically signed by Cuauhtemoc Chu 05/26/22 17:30: Student report that needed revision. 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 Clinical Instructor Line Start: 05/06/22 18:10 Freq: Status: Active Protocol: Document 05/06/22 18:11 (Rec: 05/06/22 18:47 [id number]) Clinical Instructor Signature Clinical Instructor Clinical Instructor Yes INJECTION MOLDING MACHINE TENDER Clinical Swallow Evaluation Start: 05/06/22 18:10 Freq: Status: Active Protocol: Document 05/06/22 18:11 (Rec: 05/06/22 18:47 [id number]) Clinical Swallow Evaluation Session Time Visit Start Time 13:30 Visit Stop Time 14:15 Total Visit Minutes 45 Visit Information Visit Number 1 Plan of Care Dates 05/06/22 Insurance Information [employer] Referral Referring Provider Miriam Sheridan Reason for Referral dysphagia Setting Assessment Location Outpatient Care Visit Type Note Type Initial evaluation Patient Information Identification Type Name,ID Card History Pt is a 81-year-old female who presents with difficulty swallowing large pills. She reported that pills feel lodged and [she] needs to cough to get it out otherwise the pill may remain in her throat until dissolved. She reported this problem beginning 6 months ago when she noticed cough and phlegm build-up at night. She sleeps with her head slightly elevated. Swallowing difficulty with pills is reported to be inconsistent and sporadic. She takes pills 4 at a time unless they are too large in which case she will cut them in half and take them individually. Pt reported placing pill in carrier (e.g., having a pretzel after consuming pill to get it down with water). She has also reported success using the chin-tuck technique during swallowing. Pt also has a history of GERD for which she takes nexium. Pt experienced 1 episode of choking with a piece of meat many years ago. She recently underwent a chest x-ray on 04/05 as recommended by her doctor to rule out pneumonia. Per results of chest x-ray: Loss of hemidiaphragm contour at the left base possibly secondary to minimal effusion versus dependent change such as atelectasis. Developing pneumonia cannot be definitively excluded. Pt has a history of smoking for 20 years. She also has asthma but as reportedly not had an asthma attack in 2 years. 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 She reports having sensitivity to strong smells and tastes. Reported by Patient Other Symptoms Coughing,Difficulty swallowing pills Comment Pt reports difficulty swallowing large pills which result in coughing to dislodge. She denies pain and difficulty swallowing foods or liquids. Current Diet Regular,Thin liquids Baseline Feeding Method Independent in self-feeding Patient Questionnaire No Objective Assessment Mental Status Alert,Responsive,Cooperative Oral Integrity WFL Dentition Missing teeth,Dentures or partials present,Lower dentures/partials,Adequate denture or partial fitting Lip Function Within normal limits Observation of Lips at Rest Symmetrical Pucker Within normal limits Lip Retraction Within normal limits Alternating Pucker/Lip Retraction Within normal limits Tongue Function Within normal limits Observations of Tongue at Rest Within normal limits Tongue Protrusion Within normal limits Tongue Retraction Within normal limits Tongue Lateralization Within normal limits Jaw Function Within normal limits Observations of Jaw at Rest Within normal limits Jaw Opening Within normal limits Jaw Closing Within normal limits Jaw Lateralization Within normal limits Hard/Soft Palate Function Within normal limits Observations of Hard/Soft Palate Within normal limits Nasality Within normal limits Phonation Within normal limits Respiratory Sufficiency Within normal limits Comment Missing dentition may indicate difficulty during the oral phrase of swallow to sufficiently masticate. Pt reported eating softer, bite- sized foods to compensate for lack of dentition and does not report problems with eating. Lip pucker/retraction was slightly slowed but otherwise WFL. DDK was conducted and slightly slower but unremarkable. Otherwise appropriate tongue, jaw, and lip ROM, symmetry, and speed. Food and Liquid Trials Position During Assessment Upright (90 degrees) Liquids Trialed Thin Solids Trialed Dysphagia Mechanical Administration Type Tea spoon,Cup single sip,Self- feeding Oral Impairment Within normal limits Oral Phase Comments Appropriate lip seal and bolus containment. Appropriate time and effort during mastication of bolus. No s/s of aspiration , effort, or delay upon swallow. Voice was normal after swallow and no wet/ gurgly voice was detected. Pt. did not cough/throat clear or indicate need to cough/throat clear during trails. Pharyngeal Impairment Within normal limits Pharyngeal Phase Comments Appropriate hyolaryngeal excursion upon palpation. No s /s of aspiration, effort, or delay upon swallow. Cannot rule-out silent aspiration. Fatigue/Endurance Endurance WNL Comment No fatigue noted during liquid trails. Unable to comment of solids due to minimal solids presented. [place] Swallow Protocol Yes Results No s/s of aspiration were observed. Pt presented with swallowing WNL during oral and pharyngeal phase. Tx not recommended at this time. Pt reported understanding and use of chin-tuck strategy during swallow to decrease risk of aspiration and recommendation to take pills one at a time. Recommend referral to PCP and GI for issues of GERD and phlegm. Resume current diet of regular solids and thin liquids. Findings Swallowing Function Within normal limits Severity of Swallow Impairment Within normal limits Contributing Factors to Swallow Impaired airway protection Impairment Comments Pt reports head tilt back during swallow, opening airway Prognosis Good Based on Cognitive status,History of aspiration/aspiration pneumonia Comment Prognosis is good based on client's cognitive status of understanding and follow- through of doctor's chin-tuck recommendation. Impact on Safety and Functioning No limitations Recommendations Instrumental Assessment No Swallowing Treatment No Recommended Solids Regular Recommended Liquids Thin Medication Recommendations One at a Time Discharge Recommendations Home Referrals Recommended Referrals Gastroenterology,Primary Care Provider Education Patient/Caregiver Education Described results of evaluation,Patient expressed understanding of evaluation, Patient expressed agreement with goals & treatment plans, Patient expressed understanding of safety precautions,Patient expressed understanding of feeding recommendations
--- NOTE | 2022-05-07 17:38 | ST.OPPOC ---
Physical, Occupational & Speech Therapy At [facility] Visit Care Team Role Provider Type Miriam Sheridan MD Attending Provider Physician Family Provider Primary Care Provider Referring Provider Address: Phone: Speech Pathology Plan of Care ASH COLLECTOR Clinical Instructor Line Start: 05/06/22 18:10 Freq: Status: Active Protocol: Document 05/06/22 18:11 (Rec: 05/06/22 18:47 [id number]) Clinical Instructor Signature Clinical Instructor Clinical Instructor Yes Speech Pathology Plan of Care Plan of Care Dates 05/06/22 Referring Provider Miriam Sheridan Patient History Pt is a 81-year-old female who presents with difficulty swallowing large pills. She reported that pills feel lodged and [she] needs to cough to get it out otherwise the pill may remain in her throat until dissolved. She reported this problem beginning 6 months ago when she noticed cough and phlegm build-up at night. She sleeps with her head slightly elevated. Swallowing difficulty with pills is reported to be inconsistent and sporadic. She takes pills 4 at a time unless they are too large in which case she will cut them in half and take them individually. Pt reported placing pill in carrier (e.g., having a pretzel after consuming pill to get it down with water). She has also reported success using the chin-tuck technique during swallowing. Pt also has a history of GERD for which she takes nexium. Pt experienced 1 episode of choking with a piece of meat many years ago. She recently underwent a chest x-ray on 04/05/22 as recommended by her doctor to rule out pneumonia. Per results of chest x-ray: Loss of hemidiaphragm contour at the left base possibly secondary to minimal effusion versus dependent change such as atelectasis. Developing pneumonia cannot be definitively excluded. Pt has a history of smoking for 20 years. She also has asthma but as reportedly not had an asthma attack in 2 years. 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 She reports having sensitivity to strong smells and tastes. Comment: Electronically Signed by: Anny Means 05/07/22 [id number] If you are in agreement with this Plan of Care, please return a signed and dated copy. I have reviewed this Plan of Care and certify that the skilled therapy services above are required to meet the patient?s needs. Physician Signature Date Printed Name and Credentials Clinical Instructor Signature Printed Name and Credentials
--- NOTE | 2022-05-26 17:29 | ST.OPIE ---
Visit Care Team Role Provider Type Miriam Sheridan MD Attending Provider Physician Family Provider Primary Care Provider Referring Provider Specialty: Internal Medicine Address: [place], [address] Phone: Email: Speech-Language Pathology Initial Evaluation TRANSPORTATION SALES CONSULTANT Clinical Instructor Line Start: 05/06/22 18:10 Freq: Status: Active Protocol: Document 05/06/22 18:11 (Rec: 05/06/22 18:47 [id number]) Clinical Instructor Signature Clinical Instructor Clinical Instructor Yes TRANSPORTATION SALES CONSULTANT Clinical Swallow Evaluation Start: 05/06/22 18:10 Freq: Status: Active Protocol: Document 05/06/22 18:11 (Rec: 05/06/22 18:47 [id number]) Clinical Swallow Evaluation Session Time Visit Start Time 13:30 Visit Stop Time 14:15 Total Visit Minutes 45 Visit Information Visit Number 1 Plan of Care Dates 05/06/22 Insurance Information [employer] Referral Referring Provider Miriam Sheridan Reason for Referral dysphagia Setting Assessment Location Outpatient Care Visit Type Note Type Initial evaluation Patient Information Identification Type Name,ID Card History Pt is a 81-year-old female who presents with difficulty swallowing large pills. She reported that pills feel lodged and [she] needs to cough to get it out otherwise the pill may remain in her throat until dissolved. She reported this problem beginning 6 months ago when she noticed cough and phlegm build-up at night. She sleeps with her head slightly elevated. Swallowing difficulty with pills is reported to be inconsistent and sporadic. She takes pills 4 at a time unless they are too large in which case she will cut them in half and take them individually. Pt reported needing to eat a pretzel after consuming pill to get it down after initial attempt. She has also reported success using the chin-tuck technique during swallowing. Pt also has a history of GERD for which she takes nexium. Pt experienced 1 episode of choking with a piece of meat many years ago. She recently underwent a chest x-ray on 04/05 as recommended by her doctor to rule out pneumonia. Per results of chest x-ray: Loss of hemidiaphragm contour at the left base possibly secondary to minimal effusion versus dependent change such as atelectasis. Developing pneumonia cannot be definitively excluded. Pt has a history of smoking for 20 years. She also has asthma but as reportedly not had an asthma attack in 2 years. 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 She reports having sensitivity to strong smells and tastes. Reported by Patient Other Symptoms Coughing,Difficulty swallowing pills Comment Pt reports difficulty swallowing large pills which result in coughing to disslodge. She denies pain and difficulty swallowing foods or liquids. Current Diet Regular,Thin liquids Baseline Feeding Method Independent in self-feeding Patient Questionnaire No Objective Assessment Mental Status Alert,Responsive,Cooperative Oral Integrity WFL Dentition Missing teeth,Dentures or partials present,Lower dentures/partials,Adequate denture or partial fitting Lip Function Within normal limits Observation of Lips at Rest Symmetrical Pucker Within normal limits Lip Retraction Within normal limits Alternating Pucker/Lip Retraction Within normal limits Tongue Function Within normal limits Observations of Tongue at Rest Within normal limits Tongue Protrusion Within normal limits Tongue Retraction Within normal limits Tongue Lateralization Within normal limits Jaw Function Within normal limits Observations of Jaw at Rest Within normal limits Jaw Opening Within normal limits Jaw Closing Within normal limits Jaw Lateralization Within normal limits Hard/Soft Palate Function Within normal limits Observations of Hard/Soft Palate Within normal limits Nasality Within normal limits Phonation Within normal limits Respiratory Sufficiency Within normal limits,Mild impairment Comment Pt's partials were observed to be well-fitted and did not appear to affect mastication. Pt reported eating softer, bite-sized foods because she has partials, but does not report problems with eating. Lip pucker/retraction was slightly slowed but otherwise WFL. DDK was conducted and slightly slower but unremarkable. Otherwise appropriate tongue, jaw, and lip ROM, symmetry, and speed. Oral phase of swallow indicated adequate mastication with rotary chew with single trial. No oral residue observed. Food and Liquid Trials Position During Assessment Upright (90 degrees) Liquids Trialed Thin Solids Trialed Mechanical Soft Administration Type Tea spoon,Cup single sip,Self- feeding Oral Impairment Within normal limits Oral Phase Comments Appropriate lip seal and bolus containment. Appropriate time and effort during mastication of bolus. No s/s of aspiration , effort, or delay upon swallow. Voice was normal after swallow and no wet/ gurgly voice was detected. Pt. did not cough/throat clear or indicate need to cough/throat clear during trails. Pharyngeal Impairment Within normal limits Pharyngeal Phase Comments Appropriate hyolaryngeal excursion upon palpation. No s /s of aspiration, effort, or delay upon swallow. No wet voicing observed. No cough/ choke noted. Cannot rule-out silent aspiration. Trials of liquids and single trial of a solid were presented. Pharyngeal phase of swallow appeared to be WFL during the limited trials presented. If difficulty with pharyngeal phase of swallow (e.g., pills getting stuck) a Modified Barium Swallow Study would be recommended. Fatigue/Endurance Endurance WNL Comment No fatigue noted during liquid trails. Unable to comment of solids as only one trail with solid food attempted. [employer] Swallow Protocol Yes Results No s/s of aspiration were observed with the trials presented. Pt appears to demonstrate swallowing WFL. Tx not recommended at this time. Pt reported understanding. She was instructed in a chin-tuck strategy during swallow and recommendation was made to take pills one at a time. Findings Swallowing Function Within functional limits Severity of Swallow Impairment Within functional limits Comments Pt reports head tilt back during when swallowing pills Prognosis Good Based on Cognitive status,History of aspiration/aspiration pneumonia Impact on Safety and Functioning No limitations Recommendations Instrumental Assessment No Swallowing Treatment No Recommended Solids Regular Recommended Liquids Thin Medication Recommendations One at a Time Discharge Recommendations Home Referrals Recommended Referrals Gastroenterology,Primary Care Provider Education Patient/Caregiver Education Described results of evaluation,Patient expressed understanding of evaluation, Patient expressed agreement with goals & treatment plans, Patient expressed understanding of safety precautions,Patient expressed understanding of feeding recommendations
== END 2022-06-03 14:33 | disposition home or self-care (01) ==
LOC: SP 13:06
PROVIDERS: Absent Provider Internal Medicine; Family Provider Internal Medicine; PCP Internal Medicine; Referring Provider Internal Medicine; Visit Provider Internal Medicine
DX: R13.10 Dysphagia, unspecified (principal)
CPT/HCPCS: 92610

== ENCOUNTER → 2022-08-19 15:10 | Outpatient (ROUT) | payer MEDICARE, SELFPAY ==
[2022-08-19 15:29] LABS: Appearance Urine UA CLEAR; Bilirubin Urine UA NEGATIVE (NEGATIVE); Color Urine UA YELLOW; Glucose Urine UA NEGATIVE (Negative); Ketones Urine UA NEGATIVE (NEGATIVE); Leukocyte Esterase Urine UA TRACE (NEGATIVE); Nitrite Urine UA NEGATIVE (Negative); Occult Blood Urine UA NEGATIVE (Negative); Protein Urine UA TRACE (Negative)
[2022-08-19 15:43] LABS: pH Urine UA 6.5 (4.5-8.0)
[2022-08-19 15:44] LABS: Bacteria Urine Occasional (0-1); Culture Indicated Urine Specimen Cultured; RBC Urine 0-1/HPF (0-5/HPF); Squamous Epithelial Cell Urine 5-10 /HPF (0-5/HPF); WBC Urine 5-10/HPF (0-5/HPF)
== END ==
PROVIDERS: Family Provider Internal Medicine; PCP Pediatrics; Visit Provider Pediatrics
DX: E11.9 Type 2 diabetes mellitus without complications (principal); R35.0 Frequency of micturition; R42 Dizziness and giddiness
CPT/HCPCS: 81001; 87086

== ENCOUNTER → 2023-03-22 07:03 | Outpatient (CLI) | payer MEDICARE, SELFPAY ==
[2023-03-22 08:10] LABS: Add Manual Diff / Slide Review NO; Basophils Absolute Auto 100 /uL (0-100); Basophils Percent Auto 0.8 % (0-2); Eosinophils Absolute Auto 200 /uL (0-450); Eosinophils Percent Auto 2.4 % (2-4); Hematocrit 32.2 % (36-46); Hemoglobin 10.6 g/dL (12.0-16.0); Lymphocytes Absolute Auto 1900 /uL (1100-4500); Lymphocytes Percent Auto 22.5 % (25-40); Mean Corpuscular HGB Conc 32.8 % (30-36); Mean Corpuscular Volume 76.2 fL (80-100); Monocytes Absolute Auto 700 /uL (0-900); Neutrophils Absolute Auto 5600 /uL (1500-7000); Neutrophils Percent Auto 66.3 % (50-75); Platelet Count 402 X10^3/uL (150-400); Red Blood Cell Count 4.23 X10^6/uL (4.0-5.2); Red Cell Distribution Width 18.2 % (11.6-14.8); White Blood Cell Count 8.5 X10^3/uL (4.5-11.0)
[2023-03-22 10:07] LABS: Alanine Aminotransferase 11 IU/L (<35); Albumin Globulin Ratio 1.3 (1.0-2.8); Alkaline Phosphatase 60 U/L (38-126); Aspartate Aminotransferase 20 IU/L (14-36); BUN Creatinine Ratio 13.4 (6-22); Bilirubin Total 0.4 mg/dL (0.2-1.3); Blood Urea Nitrogen 11 mg/dL (7-17); Calcium 9.1 mg/dL (8.4-10.2); Carbon Dioxide 26 mmol/L (22-32); Chloride 97 mmol/L (98-107); Estimated Glomerular Filt Rate > 60 mL/min (>60); Glucose 117 mg/dL (80-110); HEMOLYSIS < 15 (0-50); Potassium 4.4 mmol/L (3.4-5.1); Sodium 131 mmol/L (137-145)
[2023-03-22 10:23] LABS: HEMOLYSIS < 15 (0-50); Iron 35 ug/dL (37-170)
[2023-03-22 10:25] LABS: Hemoglobin A1C% w Est Avg Glu 6.1 % (4.0-6.0)
[2023-03-22 10:41] LABS: Percent Iron Saturation 9 % (15-50); Total Iron Binding Capacity 401 ug/dL (265-497); Transferrin 337 mg/dL (206-381)
[2023-03-22 10:45] LABS: Free T4, Direct Thyroxine 1.56 ng/dL (0.78-2.19)
[2023-03-22 10:53] LABS: Vitamin B12 185 pg/mL (239-931)
[2023-03-22 10:57] LABS: Thyroid Stimulating Hormone 1.46 uIU/mL (0.47-4.68)
== END ==
PROVIDERS: Family Provider Internal Medicine; PCP Family Medicine; Referring Provider Family Medicine; Visit Provider Family Medicine
DX: E03.9 Hypothyroidism, unspecified (principal); E11.9 Type 2 diabetes mellitus without complications; I10 Essential (primary) hypertension; D64.9 Anemia, unspecified
CPT/HCPCS: 36415; 80053; 82607; 83036; 83540; 83550; 84439; 84443; 85025

== ENCOUNTER → 2023-10-05 06:53 | Outpatient (CLI) | payer MEDICARE, SELFPAY ==
[2023-10-05 08:37] LABS: HEMOLYSIS < 15 (0-50); Iron 60 ug/dL (37-170)
[2023-10-05 08:40] LABS: Alanine Aminotransferase 13 IU/L (<35); Albumin 3.8 g/dL (3.5-5.0); Albumin Globulin Ratio 1.7 (1.0-2.8); Alkaline Phosphatase 69 U/L (38-126); Aspartate Aminotransferase 20 IU/L (14-36); BUN Creatinine Ratio 10.7 (6-22); Bilirubin Total 0.7 mg/dL (0.2-1.3); Blood Urea Nitrogen 9 mg/dL (7-17); Calcium 9.2 mg/dL (8.4-10.2); Carbon Dioxide 27 mmol/L (22-32); Chloride 95 mmol/L (98-107); Estimated Glomerular Filt Rate > 60 mL/min (>60); Globulin 2.2 g/dL (1.7-4.1); Glucose 114 mg/dL (80-110); HEMOLYSIS < 15 (0-50); Potassium 4.5 mmol/L (3.4-5.1); Sodium 129 mmol/L (137-145)
[2023-10-05 08:47] LABS: Percent Iron Saturation 19 % (15-50); Total Iron Binding Capacity 324 ug/dL (265-497); Transferrin 253 mg/dL (206-381)
[2023-10-05 08:54] LABS: Free T4, Direct Thyroxine 2.42 ng/dL (0.78-2.19)
[2023-10-05 09:08] LABS: Thyroid Stimulating Hormone 0.036 uIU/mL (0.47-4.68)
[2023-10-05 09:14] LABS: Add Manual Diff / Slide Review NO; Basophils Absolute Auto 0 /uL (0-100); Basophils Percent Auto 0.7 % (0-2); Eosinophils Absolute Auto 300 /uL (0-450); Eosinophils Percent Auto 3.7 % (2-4); Hematocrit 35.7 % (36-46); Hemoglobin 11.9 g/dL (12.0-16.0); Lymphocytes Absolute Auto 1400 /uL (1100-4500); Lymphocytes Percent Auto 19.1 % (25-40); Mean Corpuscular HGB Conc 33.3 % (30-36); Mean Corpuscular Hemoglobin 28.3 PG (26-34); Mean Corpuscular Volume 84.8 fL (80-100); Monocytes Absolute Auto 600 /uL (0-900); Monocytes Percent Auto 8.8 % (3-14); Neutrophils Absolute Auto 4900 /uL (1500-7000); Neutrophils Percent Auto 67.7 % (50-75); Platelet Count 311 X10^3/uL (150-400); Red Blood Cell Count 4.21 X10^6/uL (4.0-5.2); Red Cell Distribution Width 15.3 % (11.6-14.8); White Blood Cell Count 7.3 X10^3/uL (4.5-11.0)
[2023-10-05 09:27] LABS: Vitamin B12 254 pg/mL (239-931)
[2023-10-05 09:55] LABS: Hemoglobin A1C% w Est Avg Glu 5.8 % (4.0-6.0)
== END ==
PROVIDERS: Family Provider Internal Medicine; PCP Family Medicine; Referring Provider Family Medicine; Visit Provider Family Medicine
DX: E11.65 Type 2 diabetes mellitus with hyperglycemia (principal); I10 Essential (primary) hypertension
CPT/HCPCS: 36415; 80053; 82607; 83036; 83540; 83550; 84439; 84443; 85025

== ENCOUNTER 2023-11-25 13:00 | Observation (INO) | payer MEDICARE, SELFPAY ==
[2023-11-25] VITALS (12 sets, daily range): BP systolic 184–216; BP diastolic 68–109; PULSE 72–86; RESP 16–26; TEMP 36.6; O2SAT 95–98; BMI 31.1
--- NOTE | 2023-11-25 13:12 | DI.CT.S_ITS ---
PROCEDURE: CT STROKE INDICATIONS: left weakness TECHNIQUE: Noncontrast 4.5 mm thick angled axial sections acquired from the foramen magnum to the vertex, with coronal reformats. For radiation dose reduction, the following was used: automated exposure control, adjustment of mA and/or kV according to patient size. COMPARISON: None. FINDINGS: Image quality: Diagnostic. CSF spaces: Basal cisterns are patent. No extra-axial fluid collections. The ventricles are symmetric in size and shape. Brain: No intracranial bleeds or masses. There is cerebral volume loss for age, with resultant ventricular and sulcal prominence. There are periventricular and deep white matter chronic small vessel ischemic changes. There is intracranial internal carotid artery atherosclerosis. Skull and face: Calvarium and visualized facial bones appear intact, without suspicious lesions. Sinuses: Visualized sinuses and mastoids are clear. IMPRESSION: 1. No CT evidence of acute intracranial pathology. No contraindication for IV tPA therapy. Findings were reported to Dr. Lomax in the ER on 11/25/2023 at 1:31 p.m.. This study fulfills neurological imaging criteria for inclusion or exclusion of acute stroke therapies based on available published neurological guidelines. Dictated by: Isaac Love M.D. on 11/25/2023 at 13:30 Approved by: Isaac Love M.D. on 11/25/2023 at 13:31
--- NOTE | 2023-11-25 13:12 | DI.CT.S_ITS ---
PROCEDURE: CT ANGIO HEAD AND NECK INDICATIONS: left weakness TECHNIQUE: After the administration of intravenous contrast, 1 mm thick sections acquired from the aortic arch through the [place]. 3-dimensional iettuzs-udtnkiqcb-dayshagpij (MIP) and/or volume rendering reformats were acquired of the central intracranial vasculature and neck separately. For radiation dose reduction, the following was used: automated exposure control, adjustment of mA and/or kV according to patient size. COMPARISON: None. FINDINGS: Image quality: Diagnostic. BRAIN: CSF spaces: Ventricles are normal in size and shape. Basal cisterns are patent. No extra-axial fluid collections. Brain: No significant abnormality of the brain can be seen. Skull and face: Calvarium and facial bones appear intact, without suspicious lesions. Orbits appear normal. Sinuses: Sinuses and mastoids are clear. HEAD CT ANGIOGRAPHY: Anterior circulation: Intracranial internal carotid arteries are normal in size and flow. The flow within the paired anterior cerebral arteries is normal and symmetric. The flow within the middle cerebral arteries is normal and symmetric. The anterior communicating artery is seen. No aneurysms are seen. Posterior circulation: Visualized portions of the vertebral arteries demonstrate normal caliber, and join to form a normal appearing basilar artery. Flow within the posterior cerebral arteries is normal and symmetric. No aneurysms are seen. NECK CT ANGIOGRAPHY: Carotid system: The great vessels demonstrate a conventional anatomy as they arise from the aortic arch. The origins of the common carotid arteries appear patent. The common carotid arteries demonstrate normal caliber and courses. Atherosclerotic calcifications are noted involving right carotid bifurcation and proximal right internal carotid artery with less than 50 percent stenosis. The internal carotid arteries demonstrate normal calibers and courses. Posterior circulation: The origins of the vertebral arteries both appear widely patent. The more superior extracranial portions of both vertebral arteries also demonstrate normal courses and calibers. They join to form a normal appearing basilar artery. Soft tissues: Visualized neck soft tissues demonstrate no suspicious abnormalities. Bones: No suspicious bony lesions. Visualized cervical spine appears normally aligned. IMPRESSION: 1. No hemodynamically significant stenosis or aneurysm is seen in the intracranial circulation. 2. No hemodynamically significant stenosis is seen in bilateral neck arteries. Less than 50 percent stenosis is noted in proximal right internal carotid artery. Any quantitative measurements of stenosis were performed using NASCET criteria. Dictated by: Isaac Love M.D. on 11/25/2023 at 13:52 Approved by: Isaac Love M.D. on 11/25/2023 at 13:55
[2023-11-25 13:28] LABS: Add Manual Diff / Slide Review NO; Basophils Absolute Auto 100 /uL (0-100); Basophils Percent Auto 0.7 % (0-2); Eosinophils Absolute Auto 300 /uL (0-450); Eosinophils Percent Auto 2.9 % (2-4); Hematocrit 36.4 % (36-46); Hemoglobin 12.2 g/dL (12.0-16.0); Lymphocytes Absolute Auto 1700 /uL (1100-4500); Lymphocytes Percent Auto 17.7 % (25-40); Mean Corpuscular HGB Conc 33.4 % (30-36); Mean Corpuscular Hemoglobin 28.9 PG (26-34); Mean Corpuscular Volume 86.6 fL (80-100); Monocytes Absolute Auto 900 /uL (0-900); Monocytes Percent Auto 9.5 % (3-14); Neutrophils Absolute Auto 6700 /uL (1500-7000); Neutrophils Percent Auto 69.2 % (50-75); Platelet Count 355 X10^3/uL (150-400); Red Blood Cell Count 4.21 X10^6/uL (4.0-5.2); Red Cell Distribution Width 15.1 % (11.6-14.8); White Blood Cell Count 9.7 X10^3/uL (4.5-11.0)
[2023-11-25 13:34] LABS: PTT Partial Thromboplastin Tim 31 SECONDS (25.1-36.5)
[2023-11-25 13:37] LABS: Alanine Aminotransferase 15 IU/L (<35); Albumin Globulin Ratio 1.5 (1.0-2.8); Alkaline Phosphatase 71 U/L (38-126); Aspartate Aminotransferase 24 IU/L (14-36); BUN Creatinine Ratio 15.7 (6-22); Bilirubin Total 0.6 mg/dL (0.2-1.3); Blood Urea Nitrogen 11 mg/dL (7-17); Carbon Dioxide 24 mmol/L (22-32); Chloride 95 mmol/L (98-107); Creatine Kinase 40 U/L (30-135); Estimated Glomerular Filt Rate > 60 mL/min (>60); Ethanol (ETOH) < 10 mg/dL; Globulin 2.6 g/dL (1.7-4.1); Glucose 98 mg/dL (80-110); HEMOLYSIS 23 (0-50); Potassium 4.5 mmol/L (3.4-5.1); Sodium 127 mmol/L (137-145); Total Protein 6.6 g/dL (6.3-8.2)
--- NOTE | 2023-11-25 13:40 | ED.NEUROSD ---
HPI - Neuro Symptoms/Deficit General Chief Complaint: Neuro Symptoms/Deficit Stated Complaint: stroke symptoms-slurred speech Time Seen by Provider: 11/25/23 13:12 History of Present Illness HPI Narrative: Patient 83-year-old female history of hypertension type 2 diabetes hyperlipidemia hypothyroidism acid reflux Parkinson's presenting today with stroke-like symptoms. Last known well was last night. She says she woke up had breakfast without about with her . She has had some word-finding difficulty off and on throughout the morning along with some left facial numbness. Family is at bedside and confirmed that she does have some word trouble finding. No obvious weakness. She has no prior history of CVA. She has not on anticoagulation. On Anticoagulants: No Related Data Home Medications Medication Instructions Recorded Confirmed coQ10 (ubiquinol) 100 mg capsule 200 mg PO DAILY ##0 10/16/12 11/25/23 (Qunol Oj CoQ10) ketoconazole 2 % shampoo 1 applic topical PRN PRN Rash 02/04/23 11/25/23 cholecalciferol (vitamin D3) 25 25 mcg PO DAILY 11/25/23 11/25/23 mcg (1,000 unit) capsule ferrous sulfate 325 mg (65 mg 325 mg PO DAILY 11/25/23 11/25/23 iron) tablet (Iron (ferrous sulfate)) vitamin B complex 1 cap PO DAILY 11/25/23 11/25/23 vitamin K2 100 mcg capsule 100 mcg PO DAILY 11/25/23 11/25/23 Previous Rx's Medication Instructions Recorded atorvastatin 10 mg tablet (Lipitor) 10 mg PO HS #90 tabs 02/04/23 levothyroxine 100 mcg tablet 100 mcg PO DAILY #90 tabs 02/04/23 esomeprazole magnesium 20 mg 20 mg PO DAILY #90 caps 06/21/23 capsule,delayed release (Nexium 24HR) metformin 500 mg tablet 500 mg PO TIDCC #270 tabs 06/22/23 irbesartan 150 mg tablet 150 mg PO DAILY #90 tabs 09/20/23 Allergies Allergy/AdvReac Type Severity Reaction Status Date / Time adhesive tape [ADHESIVE TAPE] Allergy Severe PAPER TAPE Verified 10/10/23 16:36 CAUSES RASH, BLISTERS Review of Systems Hematologic/Lymphatic On Anticoagulants: No Patient History Medical History Anemia Hyponatremia Osteopenia Dizziness Urinary frequency Vision disorder Psoriasis (~1968) Osteoarthritis (~1989) Chronic cough (~2017) Asthma Allergies Shoulder pain Fracture Foot pain Chronic back pain (~1949) Ankle pain (~2005) Measles Chicken pox Recurrent sinusitis Fibroids History of urinary incontinence (~2010) Hemorrhoid (~1965) GERD (gastroesophageal reflux disease) (~2010) Hypothyroidism (~2009) Diabetes mellitus (~2009) Hypertension (~2010) Head and neck cancer Surgical History Anesthesia History of tonsillectomy (~1946) History of laminectomy (~1989) History of bunionectomy of left great toe (~1993) History of right hip replacement (~2015) History of left knee replacement (~2012) Trigger finger of right thumb (~2015) History of cataract removal with insertion of prosthetic lens (~2015) Hx of total knee arthroplasty (~06/15/16) Family History Father Cancer Mother Cancer Diabetes mellitus Brother History of heart disease Hypertension Stroke Sister Cancer Grandfather Pneumonia Grandfather History of heart disease Grandmother Stroke Social History household members: spouse Smoking Status: Former smoker alcohol intake: current Smoking Status: Former smoker alcohol intake frequency: holidays/special occasions only Substance Use Type: does not use Exam Initial Vital Signs Initial Vital Signs: Vital Signs Pulse Rate 74 11/25/23 13:11 Respiratory Rate 20 11/25/23 13:11 Blood Pressure 212/97 H 11/25/23 13:11 Pulse Oximetry 98 11/25/23 13:11 GENERAL: Alert pleasant 83-year-old female HEENT: Head atraumatic,EOMI, pupils reactive, face symmetric, moist mucous membranes CARDIOVASCULAR: Regular rate and rhythm without murmurs, rubs or gallops. RESPIRATORY: Breath sounds equal bilaterally, no wheezes rales or rhonchi. ABDOMEN: Soft, nontender. Normoactive bowel sounds all 4 quadrants. No guarding or rebound. EXTREMITIES: Normal range of motion, no clubbing or edema. Neurovascularly intact NEUROLOGICAL: Alert and oriented x2.Normal gait and speech. Cranial nerves II through XII grossly intact. Good gavwlk-nv-rbxo, good cuaw-ov-dmka, strength equal bilaterally, some slurring of speech and word trouble finding, sensation in tact to soft touch bilaterally, no visual changes, no facial droop SKIN: Warm, dry, no laceration, no petechiae, no rashes or lesions. Scores NIH Stroke Scale Level of Conciousness: Alert, keenly responsive Ask month/age: Answers one question correctly, intubated follow commands Open/close eyes, close hand: Performs both tasks correctly Best gaze horizontal: Normal Visual whitlock: No visual loss Facial palsy: Normal symetrical movement Left arm drift: No drift for full 10 sec Right arm drift: No drift for full 10 sec Left leg drift: No drift for full 5 sec Right leg drift: No drift for full 5 sec Limb ataxia: Absent Sensory on face/arms/legs: Mild to moderate sensory loss, can tell touch Best language: Mild to moderate, slurs some words Dysarthria: Mild to mod,some slurring Extinction or inattention: No abnormality Total NIH Stroke scale score: 4 Course Orders Ordered: ED Orders 11/25/23 13:[address] angio head and neck Stat Urinalysis and Microscopic Stat Urine Drug Screen, Rapid Stat EKG-12 Lead Stat 11/25/23 13:15 Complete Blood Count AUTO DIFF Stat Comprehensive Metabolic Panel Stat Ethanol (ETOH) Stat PTT Partial Thromboplastin [place]lin Stat Prothrombin Time INR Stat Troponin & CK Cardiac Panel Stat 11/25/23 13:45 COVID19 -Nasal RAPID Stat Acetaminophen (Acetaminophen 325 Mg Tablet) 650 mg PO Q6H PRN PRN Reason: pain Aspirin (Aspirin Ec 325 Mg Tablet) 325 mg PO DAILY [facility] Atorvastatin Calcium (Atorvastatin 20 Mg Tablet) 10 mg PO BEDTIME [facility] Enoxaparin Sodium (Enoxaparin 40 Mg/0.4 Ml Syringe) 40 mg SUBCUT DAILY [facility] Ferrous Sulfate (Ferrous Sulfate 325 Mg Tablet) 325 mg PO DAILY [facility] Levothyroxine Sodium (Levothyroxine 100 Mcg Tablet) 100 mcg PO DAILY@0600 [facility] Losartan Potassium (Losartan 50 Mg Tablet) 50 mg PO DAILY [facility] Metformin HCl (Metformin Hcl 500 Mg Tablet) 500 mg PO TIDWM [facility] Last Admin: 11/25/23 18:54 Dose: 500 mg Documented By: XENA Naloxone HCl (Naloxone 0.4 Mg/Ml Vial) 0.2 mg IV Q2MIN PRN PRN Reason: Opiate Reversal Ketoconazole 2 % (Shampoo) 1 applictn TOP PRN PRN PRN Reason: Rash Pantoprazole Sodium (Pantoprazole Dr 20 Mg Tablet) 20 mg PO 0600 RIA Vitamin D (Cholecalciferol (Vitamin D3) 1,000 Unit Tablet) 1,000 unit PO DAILY RIA Discontinued Medications Aspirin (Aspirin 81 Mg Chew Tab) 324 mg PO NOW ONE Stop: 11/25/23 13:50 Last Admin: 11/25/23 13:59 Dose: 324 mg Documented By: CHELO Vital Signs Vital signs: Vital Signs - 8 hr 11/25/23 13:11 11/25/23 13:11 11/25/23 13:14 Temperature 97.8 F Pulse Rate 74 74 Respiratory Rate 20 16 Blood Pressure 212/97 H 212/97 H Pulse Oximetry 98 97 Oxygen Delivery Method Room Air 11/25/23 13:30 11/25/23 13:31 11/25/23 13:31 Temperature Pulse Rate 73 74 Respiratory Rate 16 22 Blood Pressure 216/83 H Pulse Oximetry 95 97 Oxygen Delivery Method 11/25/23 14:00 11/25/23 14:01 11/25/23 14:01 Temperature Pulse Rate 77 76 Respiratory Rate 26 H Blood Pressure 216/88 H Pulse Oximetry 98 98 Oxygen Delivery Method 11/25/23 14:30 11/25/23 14:36 11/25/23 14:36 Temperature Pulse Rate 83 83 Respiratory Rate 18 Blood Pressure 214/98 H Pulse Oximetry 98 97 Oxygen Delivery Method Room Air 11/25/23 15:00 11/25/23 15:01 11/25/23 15:01 Temperature Pulse Rate 86 Respiratory Rate 20 Blood Pressure 200/109 H Pulse Oximetry 97 96 Oxygen Delivery Method MDM - Neuro Symptoms/Deficit Lab Data 11/25/23 13:15 11/25/23 13:15 Labs: Lab Results 11/25/23 11/25/23 Range/Units 13:15 13:45 WBC 9.7 (4.5-11.0) X10^3/uL RBC 4.21 (4.0-5.2) X10^6/uL Hgb 12.2 (12.0-16.0) g/dL Hct 36.4 (36-46) % MCV 86.6 (80-100) fL MCH 28.9 (26-34) PG MCHC 33.4 (30-36) % RDW 15.1 H (11.6-14.8) % Plt Count 355 (150-400) X10^3/uL Neut % (Auto) 69.2 (50-75) % Lymph % (Auto) 17.7 L (25-40) % Martin % (Auto) 9.5 (3-14) % Eos % (Auto) 2.9 (2-4) % Baso % (Auto) 0.7 (0-2) % Neut # (Auto) 6700 (5414-5647) /uL Lymph # (Auto) 1700 (6267-6843) /uL Martin # (Auto) 900 (0-900) /uL Eos # (Auto) 300 (0-450) /uL Baso # (Auto) 100 (0-100) /uL PT 11.0 (9.4-12.5) SECONDS INR 1.0 (0.9-1.3) APTT 31 (25.1-36.5) SECONDS Sodium 127 L (137-145) mmol/L Potassium 4.5 (3.4-5.1) mmol/L Chloride 95 L (98-107) mmol/L Carbon Dioxide 24 (22-32) mmol/L BUN 11 (7-17) mg/dL Creatinine 0.70 (0.52-1.04) mg/dL Estimated GFR > 60 (>60) mL/min BUN/Creatinine Ratio 15.7 (6-22) Glucose 98 (80-110) mg/dL Calcium 9.0 (8.4-10.2) mg/dL Total Bilirubin 0.6 (0.2-1.3) mg/dL AST 24 (14-36) IU/L ALT 15 (<35) IU/L Alkaline Phosphatase 71 (38-126) U/L Total Creatine Kinase 40 (30-135) U/L Troponin I < 0.012 (0.01-0.034) ng/mL Total Protein 6.6 (6.3-8.2) g/dL Albumin 4.0 (3.5-5.0) g/dL Globulin 2.6 (1.7-4.1) g/dL Albumin/Globulin Ratio 1.5 (1.0-2.8) Ethyl Alcohol < 10 ( - 10) mg/dL SARS-CoV-2 (PCR) Negative (Negative) Point of Care Testing Glucose POC [address] scan - head: Radiologist's Impression: PROCEDURE: CT STROKE INDICATIONS: left weakness TECHNIQUE: Noncontrast 4.5 mm thick angled axial sections acquired from the foramen magnum to the vertex, with coronal reformats. For radiation dose reduction, the following was used: automated exposure control, adjustment of mA and/or kV according to patient size. COMPARISON: None. FINDINGS: Image quality: Diagnostic. CSF spaces: Basal cisterns are patent. No extra-axial fluid collections. The ventricles are symmetric in size and shape. Brain: No intracranial bleeds or masses. There is cerebral volume loss for age, with resultant ventricular and sulcal prominence. There are periventricular and deep white matter chronic small vessel ischemic changes. There is intracranial internal carotid artery atherosclerosis. Skull and face: Calvarium and visualized facial bones appear intact, without suspicious lesions. Sinuses: Visualized sinuses and mastoids are clear. IMPRESSION: 1. No CT evidence of acute intracranial pathology. No contraindication for IV tPA therapy. Findings were reported to Dr. Lomax in the ER on 11/25/2023 at 1:31 p.m.. This study fulfills neurological imaging criteria for inclusion or exclusion of acute stroke therapies based on available published neurological guidelines. Dictated by: Isaac Love M.D. on 11/25/2023 at 13:30 Approved by: Isaac Love M.D. on 11/25/2023 at 13:31 CTA - brain/neck: Radiologist's Impression: PROCEDURE: CT ANGIO HEAD AND NECK INDICATIONS: left weakness TECHNIQUE: After the administration of intravenous contrast, 1 mm thick sections acquired from the aortic arch through the [place]. 3-dimensional wxjojdk-sskriknfi-gbljfkjsaq (MIP) and/or volume rendering reformats were acquired of the central intracranial vasculature and neck separately. For radiation dose reduction, the following was used: automated exposure control, adjustment of mA and/or kV according to patient size. COMPARISON: None. FINDINGS: Image quality: Diagnostic. BRAIN: CSF spaces: Ventricles are normal in size and shape. Basal cisterns are patent. No extra-axial fluid collections. Brain: No significant abnormality of the brain can be seen. Skull and face: Calvarium and facial bones appear intact, without suspicious lesions. Orbits appear normal. Sinuses: Sinuses and mastoids are clear. HEAD CT ANGIOGRAPHY: Anterior circulation: Intracranial internal carotid arteries are normal in size and flow. The flow within the paired anterior cerebral arteries is normal and symmetric. The flow within the middle cerebral arteries is normal and symmetric. The anterior communicating artery is seen. No aneurysms are seen. Posterior circulation: Visualized portions of the vertebral arteries demonstrate normal caliber, and join to form a normal appearing basilar artery. Flow within the posterior cerebral arteries is normal and symmetric. No aneurysms are seen. NECK CT ANGIOGRAPHY: Carotid system: The great vessels demonstrate a conventional anatomy as they arise from the aortic arch. The origins of the common carotid arteries appear patent. The common carotid arteries demonstrate normal caliber and courses. Atherosclerotic calcifications are noted involving right carotid bifurcation and proximal right internal carotid artery with less than 50 percent stenosis. The internal carotid arteries demonstrate normal calibers and courses. Posterior circulation: The origins of the vertebral arteries both appear widely patent. The more superior extracranial portions of both vertebral arteries also demonstrate normal courses and calibers. They join to form a normal appearing basilar artery. Soft tissues: Visualized neck soft tissues demonstrate no suspicious abnormalities. Bones: No suspicious bony lesions. Visualized cervical spine appears normally aligned. IMPRESSION: 1. No hemodynamically significant stenosis or aneurysm is seen in the intracranial circulation. 2. No hemodynamically significant stenosis is seen in bilateral neck arteries. Less than 50 percent stenosis is noted in proximal right internal carotid artery. Any quantitative measurements of stenosis were performed using NASCET criteria. Dictated by: Isaac Love M.D. on 11/25/2023 at 13:52 Approved by: Isaac Love M.D. 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 She definitely has some word salad but is able to name objects she is some mild low slurring of speech but no significant facial droop Lab Test results independently reviewed as above. Pertinent findings: CBC shows no leukocytosis or anemia platelets 355 CMP shows mild hyponatremia sodium 127 previously 129 not significant change creatinine stable at 0.7 Troponin negative Independently reviewed EKG as above sinus rhythm with left bundle branch block Imaging studies independently reviewed: Head CT no acute intracranial hemorrhage CT angio no large vessel occlusion Consultations: Dr. Leon accepts patient to observation Treatments: Aspirin Re-evaluations: Patient has actually had in improvement of speech while in the ED Discussion: Patient 83-year-old female presents today with speech difficulty. Last known well last night. She definitely has some word salad has a NIH stroke scale of 4 with some numbness on the left side of her face. She has not a candidate for thrombolytic secondary to last known well is unknown. She does have improvement in her speech while in the emergency department. Head CT and CT angio do not show any evidence of intracranial hemorrhage or large vessel occlusion. Patient is noted to be hypertensive as well Discharge Plan Departure Patient Disposition: Admitted as Observation Clinical Impression: Brain TIA Admit Date/Time: 11/25/23 15:39 Admit Provider: Rishi Leon V
[2023-11-25 13:48] LABS: Troponin I < 0.012 ng/mL (0.01-0.034)
--- NOTE | 2023-11-25 13:49 | EKG_ITS ---
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
[2023-11-25] MEDS: ASPIRIN 81 MG CHEW TAB 324 MG PO (13:59)
--- NOTE | 2023-11-25 14:05 | PC.NURSE ---
Pt BP high. Pt reports discomfort in left upper arm with BP cuff inflation. Changed cuff site to right forearm to see if that is more comfortable. Left upper arm bruising present at cuff site.
[2023-11-25 14:07] LABS: COVID19 -Nasal RAPID Negative (Negative)
--- NOTE | 2023-11-25 14:22 | EKG_ITS ---
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
--- NOTE | 2023-11-25 16:54 | P.HP_ITS ---
History of Present Illness History of Present Illness Date Patient Seen: 11/25/23 Time Patient Seen: 17:15 Date of Onset of Symptoms: 11/25/23 Chief complaint: stroke symptoms-slurred speech Narrative: 83-year-old woman under the primary care doctor Pernell Pitts states that around 11:30 this morning she experienced difficulty speaking, with difficulty with finding her words. Her and son noticed soon afterwards and encouraged her to come to the emergency department for evaluation. She states her symptoms had completely resolved by the time she arrived, lasting perhaps about 2 hours. There was no facial droop seen by family and she denies lateralizing weakness, paresthesias, or vision changes. She has a mild left temporal and I headaches that she states are intermittent and have occurred many times in the past, it seemed to respond to Vicks vapor rub. She suspect there is a sinus cause for them but states this is no different from her usual headache, and that with the she never has stroke symptoms. FORMERLY [facility], [facility] Medical History Anemia Hyponatremia Osteopenia Dizziness Urinary frequency Vision disorder Psoriasis (~1968) Osteoarthritis (~1989) Chronic cough (~2017) Asthma Allergies Shoulder pain Fracture Foot pain Chronic back pain (~1949) Ankle pain (~2005) Measles Chicken pox Recurrent sinusitis Fibroids History of urinary incontinence (~2010) Hemorrhoid (~1965) GERD (gastroesophageal reflux disease) (~2010) Hypothyroidism (~2009) Diabetes mellitus (~2009) Hypertension (~2010) Head and neck cancer Surgical History Anesthesia History of tonsillectomy (~1946) History of laminectomy (~1989) History of bunionectomy of left great toe (~1993) History of right hip replacement (~2015) History of left knee replacement (~2012) Trigger finger of right thumb (~2015) History of cataract removal with insertion of prosthetic lens (~2015) Hx of total knee arthroplasty (~06/15/16) Family History Father Cancer Mother Cancer Diabetes mellitus Brother History of heart disease Hypertension Stroke Sister Cancer Grandfather Pneumonia Grandfather History of heart disease Grandmother Stroke Social History household members: spouse Smoking Status: Former smoker alcohol intake: current Meds Home Medications and Allergies Home Medications Medication Instructions Recorded Confirmed Type coQ10 (ubiquinol) 100 mg capsule 200 mg PO DAILY ##0 10/16/12 11/25/23 History (Qunol Oj CoQ10) atorvastatin 10 mg tablet (Lipitor) 10 mg PO HS #90 tabs 02/04/23 11/25/23 Rx ketoconazole 2 % shampoo 1 applic topical PRN PRN Rash 02/04/23 11/25/23 History levothyroxine 100 mcg tablet 100 mcg PO DAILY #90 tabs 02/04/23 11/25/23 Rx esomeprazole magnesium 20 mg 20 mg PO DAILY #90 caps 06/21/23 11/25/23 Rx capsule,delayed release (Nexium 24HR) metformin 500 mg tablet 500 mg PO TIDCC #270 tabs 06/22/23 11/25/23 Rx irbesartan 150 mg tablet 150 mg PO DAILY #90 tabs 09/20/23 11/25/23 Rx cholecalciferol (vitamin D3) 25 25 mcg PO DAILY 11/25/23 11/25/23 History mcg (1,000 unit) capsule ferrous sulfate 325 mg (65 mg 325 mg PO DAILY 11/25/23 11/25/23 History iron) tablet (Iron (ferrous sulfate)) vitamin B complex 1 cap PO DAILY 11/25/23 11/25/23 History vitamin K2 100 mcg capsule 100 mcg PO DAILY 11/25/23 11/25/23 History Allergies Allergy/AdvReac Type Severity Reaction Status Date / Time adhesive tape [ADHESIVE TAPE] Allergy Severe PAPER TAPE Verified 10/10/23 16:36 CAUSES RASH, BLISTERS Review of Systems Review of Systems ROS: Yes All systems reviewed with the patient and are negative except as otherwise documented Exam Vital Signs (past 8 hours): - 11/25/23 13:11 11/25/23 13:11 11/25/23 13:14 Temperature 97.8 F Pulse Rate 74 74 Respiratory Rate 20 16 Blood Pressure 212/97 H 212/97 H Pulse Oximetry 98 97 Oxygen Delivery Method Room Air 11/25/23 13:30 11/25/23 13:31 11/25/23 13:31 Temperature Pulse Rate 73 74 Respiratory Rate 16 22 Blood Pressure 216/83 H Pulse Oximetry 95 97 Oxygen Delivery Method 11/25/23 14:00 11/25/23 14:01 11/25/23 14:01 Temperature Pulse Rate 77 76 Respiratory Rate 26 H Blood Pressure 216/88 H Pulse Oximetry 98 98 Oxygen Delivery Method 11/25/23 14:30 11/25/23 14:36 11/25/23 14:36 Temperature Pulse Rate 83 83 Respiratory Rate 18 Blood Pressure 214/98 H Pulse Oximetry 98 97 Oxygen Delivery Method Room Air 11/25/23 15:00 11/25/23 15:01 11/25/23 15:01 Temperature Pulse Rate 86 Respiratory Rate 20 Blood Pressure 200/109 H Pulse Oximetry 97 96 Oxygen Delivery Method Oxygen Delivery Method Room Air Narrative Exam Narrative: GENERAL: This is a well-nourished, well-developed patient, in no apparent distress. HEAD: Atraumatic. Normocephalic. No temporal or scalp tenderness. EYES: Pupils equal round and reactive. Extraocular motions intact. No scleral icterus. No injection or drainage. ENT: Mucous membranes pink and moist. NECK: Trachea midline. No JVD, bruits or lymphadenopathy. Supple, nontender, no meningeal signs. CARDIOVASCULAR: Regular rate and rhythm without murmurs, gallops, or rubs. RESPIRATORY: Clear to auscultation. GASTROINTESTINAL: Abdomen soft, non-tender, nondistended. EXTREMITIES: No clubbing, cyanosis, or edema. BACK: Nontender without deformity or crepitance. No flank tenderness. NEUROLOGIC: Alert, oriented, speech fluent, full upper and lower motor strength, no focal deficits evident. Gait not tested but reportedly slow and unsteady, using a four wheel walker. DERMATOLOGIC: No rashes or skin lesions. Objective ECG Impression: Normal sinus rhythm at 75 beats per minute, left bundle branch block pattern Imaging *: Radiologist's impression: Head CT: 1. No CT evidence of acute intracranial pathology. No contraindication for IV tPA therapy. Head/neck CT angiogram: 1. No hemodynamically significant stenosis or aneurysm is seen in the intracranial circulation. 2. No hemodynamically significant stenosis is seen in bilateral neck arteries. Less than 50 percent stenosis is noted in proximal right internal carotid artery. Labs 11/25/23 13:15 11/25/23 13:15 Labs: Laboratory Results - last 24 hr 11/25/23 11/25/23 13:15 13:45 WBC 9.7 RBC 4.21 Hgb 12.2 Hct 36.4 MCV 86.6 MCH 28.9 MCHC 33.4 RDW 15.1 H Plt Count 355 Neut % (Auto) 69.2 Lymph % (Auto) 17.7 L Towns % (Auto) 9.5 Eos % (Auto) 2.9 Baso % (Auto) 0.7 Neut # (Auto) 6700 Lymph # (Auto) 1700 Towns # (Auto) 900 Eos # (Auto) 300 Baso # (Auto) 100 PT 11.0 INR 1.0 APTT 31 Sodium 127 L Potassium 4.5 Chloride 95 L Carbon Dioxide 24 BUN 11 Creatinine 0.70 Estimated GFR > 60 BUN/Creatinine Ratio 15.7 Glucose 98 Calcium 9.0 Total Bilirubin 0.6 AST 24 ALT 15 Alkaline Phosphatase 71 Total Creatine Kinase 40 Troponin I < 0.012 Total Protein 6.6 Albumin 4.0 Globulin 2.6 Albumin/Globulin Ratio 1.5 Ethyl Alcohol < 10 SARS-CoV-2 (PCR) Negative Assessment & Plan Assessment & Plan narrative: 1. Transient ischemic attack. Symptoms most consistent with TIA, with only speech impairment. Admit to observation, monitor on telemetry, allow permissive hypertension, continue aspirin started in emergency department as well as routine blood pressure and statin medications, and check echocardiogram and brain MRI. 2. Diabetes mellitus, type 2. This is well controlled on recent testing with hemoglobin A1c of 5.8% on 10/05/2023. Continue routine metformin and monitor with sliding scale coverage if needed. 3. Hypertension. Elevated blood pressures in the 180s to 200 range. Will allow permissive hypertension if blood pressure over 220 systolic or diastolic over 110. 4. Hyperlipidemia. Continue atorvastatin. Check lipid panel. Consider increasing dose to high-intensity therapy pending results. 5. Chronic hyponatremia appears stable and near baseline. Recheck in the morning. 6. Hypothyroidism. Recheck TSH in the morning, recently noted to be mildly low at 0.036 on 10/05/2023 when she apparently had been accidentally taking excessive doses of thyroid medication. 7. DVT prophylaxis: Low-dose Lovenox. 8. Code status: Do not resuscitate. The patient is clear that she does not wish cardiopulmonary resuscitation in the event of cardiopulmonary arrest. Plan: -admit to observation -monitor on telemetry -allow permissive hypertension, treat if SBP greater than 220, DBP greater than 110 -continue aspirin 325 mg daily -continue routine medications -check lipid panel in the morning -monitor sodium levels -Lovenox prophylaxis -DNR status Scores ABCD2 Age >= 60 years: yes Initial BP. Either SBP >= 140 or DBP >= 90.: yes Clinical features of the TIA: speech disturbance without weakness Duration of symptoms: >= 60 minutes History of diabetes: yes ABCD2 Score: 6 NIHSS Level of Conciousness: Alert, keenly responsive Ask month/age: Answers both questions correctly. Open/close eyes, close hand: Performs both tasks correctly Best gaze horizontal: Normal Visual whitlock: No visual loss Facial palsy: Normal symetrical movement Left arm drift: No drift for full 10 sec Right arm drift: No drift for full 10 sec Left leg drift: No drift for full 5 sec Right leg drift: No drift for full 5 sec Limb ataxia: Absent Sensory on face/arms/legs: Normal, no sensory loss Best language: No aphasia, normal Dysarthria: Normal Extinction or inattention: No abnormality Total NIH Stroke scale score: 0 Quality MIPS - Admit I confirm the patient?s Advance Care Plan is present, Code status is documented, Surrogate decision maker is in patient?s record [If Yes, STOP here]: Yes MIPS - Meds 'Current medications' to include all prescriptions, [id number] products, herbals, cannabis/cannabidiol products, and vitamin/mineral/dietary (nutritional) supplements. I have utilized all available resources to obtain, update, or review the patient?s current medications. [If Yes, STOP here]: Yes PROFEE Charge Codes Initial inpatient/observation care: 18252 Lab Results Common Lab Results- Last: 2 White Blood Count 9.7 X10^3/uL (4.5-11.0) 11/25/23 Red Blood Count 4.21 X10^6/uL (4.0-5.2) 11/25/23 Hemoglobin 12.2 g/dL (12.0-16.0) 11/25/23 Hematocrit 36.4 % (36-46) 11/25/23 Mean Corpuscular Volume 86.6 fL (80-100) 11/25/23 Mean Corpuscular Hemoglobin 28.9 PG (26-34) 11/25/23 Mean Corpuscular Hemoglobin Concent 33.4 % (30-36) 10/30 09/20 Red Cell Distribution Width 15.1 % (11.6-14.8) H 11/25/23 Platelet Count 355 X10^3/uL (150-400) 11/25/23 Neutrophils (%) (Auto) 69.2 % (50-75) 11/25/23 Lymphocytes (%) (Auto) 17.7 % (25-40) L 11/25/23 Monocytes (%) (Auto) 9.5 % (3-14) 11/25/23 Eosinophils (%) (Auto) 2.9 % (2-4) 11/25/23 Basophils (%) (Auto) 0.7 % (0-2) 11/25/23 Neutrophils # (Auto) 6700 /uL (5792-8318) 11/25/23 Sodium Level 127 mmol/L (137-145) L 11/25/23 Potassium Level 4.5 mmol/L (3.4-5.1) 11/25/23 Chloride Level 95 mmol/L (98-107) L 11/25/23 Carbon Dioxide Level 24 mmol/L (22-32) 11/25/23 Blood Urea Nitrogen 11 mg/dL (7-17) 11/25/23 Creatinine 0.70 mg/dL (0.52-1.04) 11/25/23 Estimat Glomerular Filtration Rate > 60 mL/min (>60) 11/24 BUN/Creatinine Ratio 15.7 (6-22) 11/25/23 Glucose Level 98 mg/dL (80-110) 11/25/23 Calcium Level 9.0 mg/dL (8.4-10.2) 11/25/23 Total Bilirubin 0.6 mg/dL (0.2-1.3) 11/25/23 Aspartate Amino Transf (AST/SGOT) 24 IU/L (14-36) Alanine Aminotransferase (ALT/SGPT) 15 IU/L (<35) 10/30 09/20 Alkaline Phosphatase 71 U/L (38-126) 11/25/23 Total Protein 6.6 g/dL (6.3-8.2) 11/25/23 Albumin 4.0 g/dL (3.5-5.0) 11/25/23 Globulin 2.6 g/dL (1.7-4.1) 11/25/23 Albumin/Globulin Ratio 1.5 (1.0-2.8) 11/25/23 Triglycerides Level 69 mg/dL (35-150) 03/24/22 Cholesterol Level 186 mg/dL (140-199) 03/24/22 HDL Cholesterol 86 mg/dL (40-60) H 03/24/22 LDL Cholesterol, Calculated 86 mg/dL (<100) 03/24/22 Thyroid Stimulating Hormone (TSH) 0.036 uIU/mL (0.47-4.68) L 10/05/23 Free Thyroxine 2.42 ng/dL (0.78-2.19) H 10/05/23 Alanine Aminotransferase (ALT/SGPT) 15 IU/L (<35) 10/30 09/20 Hemoglobin A1c 5.8 % (4.0-6.0) 10/05/23 Aspartate Amino Transf (AST/SGOT) 24 IU/L (14-36) Blood Urea Nitrogen 11 mg/dL (7-17) 11/25/23 Creatinine 0.70 mg/dL (0.52-1.04) 11/25/23 Estimat Glomerular Filtration Rate > 60 mL/min (>60) 11/24 BUN/Creatinine Ratio 15.7 (6-22) 11/25/23 Cholesterol Level 186 mg/dL (140-199) 03/24/22 Hemoglobin 12.2 g/dL (12.0-16.0) 11/25/23 Red Blood Count 4.21 X10^6/uL (4.0-5.2) 11/25/23 Hematocrit 36.4 % (36-46) 11/25/23 Lipase 114 U/L (23-300) 04/02/21 Urine Random Microalbumin 5.0 mg/dL (0-1.6) H 03/24/22 Urine Creatinine 44.7 mg/dL 03/24/22 Urine Microalbumin/Creatinine Ratio 111.8 ug/mg CR (<30) H 03/24/22 Platelet Count 355 X10^3/uL (150-400) 11/25/23 Prothrombin Time 11.0 SECONDS (9.4-12.5) 11/25/23 Prothromb Time International Ratio 1.0 (0.9-1.3) 11/24 Vitamin B12 Level 254 pg/mL (239-931) 10/05/23 25-Hydroxy Vitamin D Total 30.0 ng/mL (30.0-100.0) 11/28/20
--- NOTE | 2023-11-25 17:43 | DI.MRI.S_ITS ---
PROCEDURE: MR HEAD/BRAIN WO CON INDICATIONS: TIA TECHNIQUE: Non-contrast axial T1 spin echo, axial T2 fast spin echo, sagittal and axial FLAIR, coronal T2 fast spin echo, axial gradient echo, axial diffusion and ADC through the brain. COMPARISON: [facility], CT, CT STROKE, 11/25/2023, 13:18. FINDINGS: Image quality: Excellent. CSF spaces: Ventricles appear symmetric in size and shape. Basal cisterns are patent. No extra-axial fluid collections. Brain: No intracranial bleeds or mass effects. There is cerebral volume loss for age. There are periventricular and deep white matter chronic small vessel ischemic changes. Brainstem appears normal. Diffusion-weighted images show no acute infarct. No chronic ischemic insults. Normal intravascular flow voids are present. Skull and face: Calvarial bone marrow is normal in signal. Orbits are normal. Sinuses: Sinuses and mastoids are clear. IMPRESSION: No acute intracranial pathology. Dictated by: Akin Vásquez M.D. on 11/25/2023 at 21:27 Approved by: Akin Vásquez M.D. on 11/25/2023 at 21:29
--- NOTE | 2023-11-25 17:57 | PC.NURSE ---
Pt arrived at 1615, hypertensive but otherwise VSS on RA. A&Ox4, c/o 4/10 pain to L spiritism but does not want any meds at this time. Lung sounds dim, bowel sounds present, CMS+. Pt and family oriented to room and call light. Pt resting comfortably in chair. call light within reach, no needs at this time.
[2023-11-25] MEDS: METFORMIN HCL 500 MG TABLET PO (18:54)
[2023-11-25] MEDS: ATORVASTATIN 20 MG TABLET 10 MG PO (21:12)
[2023-11-25] MEDS: ACETAMINOPHEN 325 MG TABLET 650 MG PO (21:15)
[2023-11-26] VITALS: BP 177/72; PULSE 70; RESP 18; TEMP 36.1; O2SAT 96
[2023-11-26 04:00] VITALS: BP 180/71; PULSE 72; RESP 18; TEMP 35.9; O2SAT 97
[2023-11-26] MEDS: LEVOTHYROXINE 100 MCG TABLET PO (05:22)
[2023-11-26] MEDS: PANTOPRAZOLE DR 20 MG TABLET PO (05:22)
[2023-11-26 06:36] LABS: BUN Creatinine Ratio 13.2 (6-22); Blood Urea Nitrogen 9 mg/dL (7-17); Calcium 8.9 mg/dL (8.4-10.2); Carbon Dioxide 25 mmol/L (22-32); Chloride 93 mmol/L (98-107); Cholesterol 154 mg/dL (140-199); Estimated Glomerular Filt Rate > 60 mL/min (>60); Glucose 99 mg/dL (80-110); HDL Cholesterol 78 mg/dL (40-60); HEMOLYSIS < 15 (0-50); LDL Cholesterol Calculated 66 mg/dL (<100); Potassium 3.9 mmol/L (3.4-5.1); Sodium 123 mmol/L (137-145); Triglycerides 48 mg/dL (35-150)
[2023-11-26 07:12] LABS: Thyroid Stimulating Hormone 0.733 uIU/mL (0.47-4.68)
[2023-11-26 07:56] VITALS: BP 185/71; PULSE 66; RESP 16; TEMP 36.4; O2SAT 96
[2023-11-26] MEDS: ENOXAPARIN 40 MG/0.4 ML SYRINGE SUBCUT (08:09)
[2023-11-26 08:10] VITALS: BP 185/71; PULSE 66
[2023-11-26] MEDS: ASPIRIN EC 325 MG TABLET PO (08:10)
[2023-11-26] MEDS: FERROUS SULFATE 325 MG TABLET PO (08:10)
[2023-11-26] MEDS: LOSARTAN 50 MG TABLET 100 MG PO (08:10)
[2023-11-26] MEDS: CHOLECALCIFEROL (VITAMIN D3) 1,000 UNIT TABLET 1000 UNIT PO (08:10)
[2023-11-26] MEDS: METFORMIN HCL 500 MG TABLET PO (08:10)
--- NOTE | 2023-11-26 09:21 | CM.DANOTE ---
Initial DCP Assessment Note Pt is an 83yo female, resident of [place], arrives with stroke sx, admitted for further work up and stroke r/o. MRI neg for stroke. PCP: Surya Pitts Payer: Dinesh FOFANA Reviewed chart, met w/patient and spouse to introduce self and role. Patient reports she lives independently with spouse and their son and DIL live near them and are available to assist as needed. Patient denies hx of HH or SNF. Patient is eager to return home today and currently denying any needs from this CM team. Spouse to transport at discharge. No barriers identified at this time to patient's safe discharge home w/family to assist; close outpatient f/u recommended. CM team will plan to follow clinical course closely in case any DC needs or concerns arise. ROBERT Isaac Discharge Planning/Care Management CM Discharge Assessment Start: 11/26/23 09:17 Freq: Status: Active Protocol: Document 11/26/23 09:17 RANDI (Rec: 11/26/23 09:21 RANDI [id number]) Discharge Planning Assessment Assigned Mural Artist ROBERT Johnson DPOA/Assigned Designee Name Oc Briefer, spouse Contact Information [phone] Advance Directives? Yes Advance Directives on File No History Provided By Patient,Significant Other, Medical Record Prior Living Arrangements House Household Members spouse Type of transporation used prior to Relies on Others admit Independent with ADL's Yes Is patient alert and oriented? Yes Needs Assistance With Home Chores / Shopping Patient/Family Preference OP PT Therapy Barriers to Discharge No Discharge Plan Home Transportation Arrangement Spouse Referrals Initiated None needed
--- NOTE | 2023-11-26 09:38 | PM.DS.1 ---
History of Present Illness History of Present Illness Date Patient Seen: 11/26/23 Time Patient Seen: 09:30 Date of Onset of Symptoms: 11/25/23 Chief complaint: stroke symptoms-slurred speech Narrative: 83-year-old woman under the primary care doctor Pernell Pitts states that around 11:30 this morning she experienced difficulty speaking, with difficulty with finding her words. Her and son noticed soon afterwards and encouraged her to come to the emergency department for evaluation. She states her symptoms had completely resolved by the time she arrived, lasting perhaps about 2 hours. There was no facial droop seen by family and she denies lateralizing weakness, paresthesias, or vision changes. She has a mild left temporal and I headaches that she states are intermittent and have occurred many times in the past, it seemed to respond to Vicks vapor rub. She suspect there is a sinus cause for them but states this is no different from her usual headache, and that with the she never has stroke symptoms. Discharge Providers Provider Date of admission: 11/25/23 15:39 Discharge Date: 11/26/23 Primary care physician: Surya Pitts DO Discharge provider: Rishi Leon MD Summary Hospital Course Discharge Diagnosis: 1. Transient ischemic attack. 2. Diabetes mellitus, type 2. 3. Hypertension. 4. Hyperlipidemia. 5. Chronic hyponatremia appears stable and near baseline. 6. Hypothyroidism. Hospital Course: Symptoms most consistent with TIA, with only speech impairment. Admit to observation, monitor on telemetry, allow permissive hypertension, continue aspirin started in emergency department as well as routine blood pressure and statin medications, and check echocardiogram and brain MRI. This is well controlled on recent testing with hemoglobin A1c of 5.8% on 10/05/2023. Continue routine metformin and monitor with sliding scale coverage if needed. Elevated blood pressures in the 180s to 200 range. Will allow permissive hypertension if blood pressure over 220 systolic or diastolic over 110. Continue atorvastatin. Check lipid panel. Consider increasing dose to high-intensity therapy pending results. Aspirin was added and the patient discharged home. Time Spent with Patient Time spent: Less than 30 minutes Exam Vital Signs (past 8 hours): - 11/26/23 04:00 11/26/23 07:56 11/26/23 08:10 Temperature 96.7 F L 97.6 F Pulse Rate 72 66 66 Respiratory Rate 18 16 Blood Pressure 180/71 H 185/71 H 185/71 H Pulse Oximetry 97 96 Oxygen Flow Rate 0 0 Oxygen Delivery Method Room Air Oxygen Flow Rate 0 Narrative Exam Narrative: GENERAL: This is a well-nourished, well-developed patient, in no apparent distress. EYES: Pupils equal round and reactive. Extraocular motions intact. No scleral icterus. No injection or drainage. ENT: Mucous membranes pink and moist. NECK: Trachea midline. No JVD, bruits or lymphadenopathy. Supple, nontender, no meningeal signs. CARDIOVASCULAR: Regular rate and rhythm without murmurs, gallops, or rubs. RESPIRATORY: Clear to auscultation. GASTROINTESTINAL: Abdomen soft, non-tender, nondistended. EXTREMITIES: No clubbing, cyanosis, or edema. NEUROLOGIC: Alert, oriented, speech fluent, full upper and lower motor strength, no focal deficits evident. Gait not tested but reportedly slow and unsteady, using a four wheel walker. DERMATOLOGIC: No rashes or skin lesions. Objective Imaging *: Radiologist's impression: Head CT: 1. No CT evidence of acute intracranial pathology. No contraindication for IV tPA therapy. Head/neck CT angiogram: 1. No hemodynamically significant stenosis or aneurysm is seen in the intracranial circulation. 2. No hemodynamically significant stenosis is seen in bilateral neck arteries. Less than 50 percent stenosis is noted in proximal right internal carotid artery. Labs 11/25/23 13:15 11/26/23 05:10 Labs: Laboratory Results - last 24 hr 11/25/23 11/25/23 11/26/23 13:15 13:45 05:10 WBC 9.7 RBC 4.21 Hgb 12.2 Hct 36.4 MCV 86.6 MCH 28.9 MCHC 33.4 RDW 15.1 H Plt Count 355 Neut % (Auto) 69.2 Lymph % (Auto) 17.7 L [place] % (Auto) 9.5 Eos % (Auto) 2.9 Baso % (Auto) 0.7 Neut # (Auto) 6700 Lymph # (Auto) 1700 [place] # (Auto) 900 Eos # (Auto) 300 Baso # (Auto) 100 PT 11.0 INR 1.0 APTT 31 Sodium 127 L 123 L Potassium 4.5 3.9 Chloride 95 L 93 L Carbon Dioxide 24 25 BUN 11 9 Creatinine 0.70 0.68 Estimated GFR > 60 > 60 BUN/Creatinine Ratio 15.7 13.2 Glucose 98 99 Calcium 9.0 8.9 Total Bilirubin 0.6 AST 24 ALT 15 Alkaline Phosphatase 71 Total Creatine Kinase 40 Troponin I < 0.012 Total Protein 6.6 Albumin 4.0 Globulin 2.6 Albumin/Globulin Ratio 1.5 Triglycerides 48 Cholesterol 154 LDL Cholesterol, Calc 66 HDL Cholesterol 78 H TSH 0.733 Ethyl Alcohol < 10 SARS-CoV-2 (PCR) Negative PFSH Medical History Cervical compression fracture Fracture of proximal end of left humerus Anemia Hyponatremia Osteopenia Dizziness Urinary frequency Vision disorder Psoriasis (~1968) Osteoarthritis (~1989) Chronic cough (~2017) Asthma Allergies Shoulder pain Fracture Foot pain Chronic back pain (~1949) Ankle pain (~2005) Measles Chicken pox Recurrent sinusitis Fibroids History of urinary incontinence (~2010) Hemorrhoid (~1965) GERD (gastroesophageal reflux disease) (~2010) Hypothyroidism (~2009) Diabetes mellitus (~2009) Hypertension (~2010) Head and neck cancer Surgical History Anesthesia History of tonsillectomy (~1946) History of laminectomy (~1989) History of bunionectomy of left great toe (~1993) History of right hip replacement (~2015) History of left knee replacement (~2012) Trigger finger of right thumb (~2015) History of cataract removal with insertion of prosthetic lens (~2015) Hx of total knee arthroplasty (~06/15/16) Family History Father Cancer Mother Cancer Diabetes mellitus Brother History of heart disease Hypertension Stroke Sister Cancer Grandfather Pneumonia Grandfather History of heart disease Grandmother Stroke Social History household members: spouse Smoking Status: Former smoker alcohol intake: current Discharge Plan Discharge Plan Patient Disposition: Home Provider Discharge Comment: Followup with Dr. Pitts this week Discharge orders & Medications Prescriptions: New aspirin 81 mg tablet,delayed release (DR/EC) 81 mg PO DAILY Qty: 30 0RF Continued coQ10 (ubiquinol) [Qunol Oj CoQ10] 100 mg Capsule 200 mg PO DAILY Qty: 0 ketoconazole 2 % shampoo 1 applic topical PRN PRN (Reason: Rash) levothyroxine 100 mcg tablet 100 mcg PO DAILY Qty: 90 3RF ferrous sulfate [Iron (ferrous sulfate)] 325 mg (65 mg iron) Tablet 325 mg PO DAILY cholecalciferol (vitamin D3) 25 mcg (1,000 unit) Capsule 25 mcg PO DAILY liothyronine 5 mcg tablet 5 mcg PO DAILY Discontinued irbesartan 150 mg tablet 150 mg PO DAILY Qty: 90 3RF No Action esomeprazole magnesium [Nexium 24HR] 20 mg capsule,delayed release(DR/EC) 20 mg PO DAILY Qty: 90 3RF atorvastatin [Lipitor] 10 mg tablet 10 mg PO HS Qty: 90 3RF metformin 500 mg tablet 500 mg PO TIDCC Qty: 270 1RF vitamin K2 100 mcg capsule 100 mcg PO .QOD sennosides [senna] 8.6 mg tablet 8.6 mg PO BEDTIME Qty: 90 0RF losartan 100 mg tablet 100 mg PO DAILY Qty: 30 0RF magnesium chloride PO oxycodone 5 mg tablet 5 mg PO 3XD PRN fluticasone propion-salmeterol 250-50 mcg/dose blister with device 1 ea inhalation BID Follow up/Referrals: Surya Pitts, DO [Primary Care Provider] - Visit Report/Discharge Packet Stand Alone Forms: Patient Portal/API, Stroke Signs & Symptoms Discharge Data Primary Care Provider: Surya Pitts Attending Provider: Rishi Leon V Admit Date/Time: 11/25/23 15:39 Quality VTE Deep Vein Thrombosis/Pulmonary Embolism Present on Admission: No MIPS - Admit I confirm the patient?s Advance Care Plan is present, Code status is documented, Surrogate decision maker is in patient?s record [If Yes, STOP here]: Yes MIPS - Meds 'Current medications' to include all prescriptions, [id number] products, herbals, cannabis/cannabidiol products, and vitamin/mineral/dietary (nutritional) supplements. I have utilized all available resources to obtain, update, or review the patient?s current medications. [If Yes, STOP here]: Yes MIPS - DC The patient has a history of heart transplant or Left Ventricular Assist Device (LVAD). If yes, STOP here.: No The patient has current or prior documentation of left ventricular ejection fraction (LVEF) less than or equal to 40%, or moderate or severely depressed left ventricular systolic function.: No A. The patient was prescribed or already taking an Angiotensin-Converting Enzyme (SARWAT) Inhibitor, or Angiotensin Receptor Kumar (ARB).: No B. The patient was prescribed or already taking a beta-kumar. [If Yes to Both A & B, STOP here]: No Patient not prescribed/taking SARWAT or ARB, no reason given.: No Patient not prescribed/taking beta-kumar, no reason given.: No PROFEE Charge Codes Discharge inpatient/observation: [id number]
--- NOTE | 2023-11-26 10:57 | PC.NURSE ---
Spouse pacing hallway, requesting for pt to be discharged. Discharge ordered, pt and spouse agreeable to discharge. IV discontinued, telemetry removed. Pt education provided on stroke s/s with stroke fact sheet and refrigerator magnet, new medication, discontinued medication, fall prevention, and follow up with primary care. Pt dressed with minimum assist from spouse, wheeled via w.c by this RN at approximately 1045 to private vehicle with spouse and family members.
== END 2023-11-26 10:45 | disposition home or self-care (01) ==
LOC: ED 15:27 → AC 15:39
PROVIDERS: Admitting Provider Internal Medicine; Emergency Provider Emergency Medicine; Family Provider Internal Medicine; PCP Family Medicine; Referring Provider Emergency Medicine; Visit Provider Internal Medicine
DX: R47.81 Slurred speech (principal); R20.0 Anesthesia of skin; R29.704 NIHSS score 4; I10 Essential (primary) hypertension; E11.9 Type 2 diabetes mellitus without complications; E03.9 Hypothyroidism, unspecified; E78.5 Hyperlipidemia, unspecified; Z79.84 Long term (current) use of oral hypoglycemic drugs; Z11.52 Encounter for screening for COVID-19; E87.1 Hypo-osmolality and hyponatremia
CPT/HCPCS: 36415; 70450; 70496; 70498; 70551; 80048; 80053; 80061; 80320; 82550; 82962; 84443; 84484; 85025; 85610; 85730; 87635; 93005; 96372; 99285; G0378; J1650

== ENCOUNTER 2023-12-05 15:25 | Emergency (ER) | payer MEDICARE, SELFPAY ==
[2023-11-25 16:41] VITALS: BMI 31.1
[2023-12-05] VITALS (26 sets, daily range): BP systolic 100–212; BP diastolic 55–90; PULSE 77–124; RESP 13–30; TEMP 36.9; O2SAT 89–99; BMI 31.9
--- NOTE | 2023-12-05 15:38 | DI.RAD.S_ITS ---
PROCEDURE: XR CHEST 1V INDICATIONS: fall TECHNIQUE: One view of the chest was acquired. COMPARISON: [facility], CR, XR CHEST 2V, 04/05/2022, 12:15. FINDINGS: Surgical changes and devices: None. Lungs and pleura: There is pulmonary vascular congestion and extensive hazy opacities throughout bilateral lung [place] suggestive of pulmonary edema. No definite focal infiltrate. No pleural effusions or pneumothorax. Mediastinum: Mediastinal contours appear normal. Heart size is enlarged Bones and chest wall: No suspicious bony lesions. Overlying soft tissues appear unremarkable. IMPRESSION: Finding is suggestive of CHF. Underlying interstitial infiltrates cannot be entirely excluded. No significant pleural effusion. No gross pneumothorax. Dictated by: Isaac Love M.D. on 12/05/2023 at 16:01 Approved by: Isaac Love M.D. on 12/05/2023 at 16:03
--- NOTE | 2023-12-05 15:38 | DI.CT.S_ITS ---
PROCEDURE: CT FACIAL BONES WO CON INDICATIONS: fall TECHNIQUE: Noncontrast 2.5 mm thick axial images acquired from the mandible through the frontal sinuses, with coronal and sagittal reformatting. For radiation dose reduction, the following was used: automated exposure control, adjustment of mA and/or kV according to patient size. COMPARISON: None. FINDINGS: Image quality: Excellent. Bones and teeth: Orbital phillips are intact. Sinus phillips show no fracture or deformity. Nasal bones and septum are intact. Visualized portions of the mandible demonstrate no fractures or subluxation. Zygomatic arches are intact. Pterygoid plates are intact. Visualized portions of the skull base and auditory canals are intact. Sinuses: Paranasal sinuses are aerated, without fluid levels, mucosal thickening, or mucoceles. Mastoid air cells are aerated. Soft tissues: No edema, masses, or fluid collections. No enlarged lymph nodes. No soft tissue lacerations or debris. Vascular: Visualized vascular structures appear normal in the absence of contrast. Bony vascular foramina and canals are intact. IMPRESSION: 1. No gross acute facial bone or nasal bone fracture. Nasal septum is midline. 2. Bilateral orbital phillips and orbital globes are intact. 3. Bilateral paranasal sinuses are well aerated. Dictated by: Isaca Love M.D. on 12/05/2023 at 16:06 Approved by: Isaac Love M.D. on 12/05/2023 at 16:08
--- NOTE | 2023-12-05 15:38 | DI.CT.S_ITS ---
PROCEDURE: CT CERVICAL SPINE WO CON INDICATIONS: fall TECHNIQUE: Noncontrast 3 mm thick sections acquired from the skull base to the T4 level. Sagittal and coronal reformats were then constructed. For radiation dose reduction, the following was used: automated exposure control, adjustment of mA and/or kV according to patient size. COMPARISON: None. FINDINGS: Image quality: Excellent. Bones: Mildly displaced fracture of the left C1 facet (series 2, image 20 and 19). Mildly displaced intra-articular fracture at the anterior base C2. This does not extend to the dens. There is no evidence of ligamentous injury. Soft tissues: Prevertebral soft tissues are normal in thickness. No paravertebral hematomas. No apical pneumothoraces. IMPRESSION: Displaced fracture of the left C1 facet. Consider neck CTA to exclude vertebral artery injury. Displaced fracture at the base of the C2 vertebral body. No definite ligamentous injury. Findings discussed with Dr. Kaci pantoja at 4:22 p.m. on 12/05/2023. Dictated by: Akin Vásquez M.D. on 12/05/2023 at 16:12 Approved by: Akin Vásquez M.D. on 12/05/2023 at 16:22
--- NOTE | 2023-12-05 15:38 | DI.RAD.S_ITS ---
PROCEDURE: XR SHOULDER LT MIN 2V INDICATIONS: pain fall TECHNIQUE: 2 views of the shoulder were acquired. COMPARISON: None. FINDINGS: Bones: Acute comminuted fracture involving surgical neck/proximal humeral shaft is seen with anterior and medial displacement of proximal humeral shaft in relation to humeral head. No dislocation. No other fracture is seen. No suspicious bony lesions. Visualized ribs appear intact. Soft tissues: No suspicious soft tissue calcifications. IMPRESSION: Acute comminuted and displaced proximal humeral shaft/surgical neck fracture as above. Dictated by: Isaac Love M.D. on 12/05/2023 at 16:04 Approved by: Isaac Love M.D. on 12/05/2023 at 16:06
--- NOTE | 2023-12-05 15:38 | DI.CT.S_ITS ---
PROCEDURE: CT HEAD/BRAIN WO CON INDICATIONS: fall TECHNIQUE: Noncontrast 4.5 mm thick angled axial sections acquired from the foramen magnum to the vertex, with coronal and sagittal reformats. For radiation dose reduction, the following was used: automated exposure control, adjustment of mA and/or kV according to patient size. COMPARISON: [facility], MR, MR HEAD/BRAIN WO CON, 11/25/2023, 20:14. [facility], CT, CT STROKE, 11/25/2023, 13:18. FINDINGS: Image quality: Diagnostic. CSF spaces: Basal cisterns are patent. No extra-axial fluid collections. The ventricles are symmetric in size and shape. Brain: No intracranial bleeds or masses. There is cerebral volume loss for age, with resultant ventricular and sulcal prominence. There are periventricular and deep white matter chronic small vessel ischemic changes. There is intracranial internal carotid artery atherosclerosis. Skull and face: Large scalp hematoma and swelling in right frontal region is seen. No gross acute displaced skull fracture. Sinuses: Visualized sinuses and mastoids are clear. IMPRESSION: 1. No acute intracranial pathology. 2. Large right frontal scalp hematoma and swelling. No acute skull fracture. Dictated by: Isaac Love M.D. on 12/05/2023 at 16:09 Approved by: Isaac Love M.D. on 12/05/2023 at 16:10
--- NOTE | 2023-12-05 16:21 | DI.CT.S_ITS ---
PROCEDURE: CT ANGIO HEAD AND NECK INDICATIONS: questionable dissection TECHNIQUE: After the administration of intravenous contrast, 1 mm thick sections acquired from the aortic arch through the [place]. 3-dimensional ptyucad-jlxjvmbxp-cojgcmyyqv (MIP) and/or volume rendering reformats were acquired of the central intracranial vasculature and neck separately. For radiation dose reduction, the following was used: automated exposure control, adjustment of mA and/or kV according to patient size. COMPARISON: [facility], CT, CT ANGIO HEAD AND NECK, 11/25/2023, 13:18. FINDINGS: Image quality: Diagnostic. BRAIN: CSF spaces: Ventricles are normal in size and shape. Basal cisterns are patent. No extra-axial fluid collections. Brain: No significant abnormality of the brain can be seen. Skull and face: Right frontal scalp hematoma and swelling with scalp laceration is seen. Calvarium and facial bones appear intact, without suspicious lesions. Orbits appear normal. Sinuses: Sinuses and mastoids are clear. HEAD CT ANGIOGRAPHY: Anterior circulation: Intracranial internal carotid arteries are normal in size and flow. The flow within the paired anterior cerebral arteries is normal and symmetric. The flow within the middle cerebral arteries is normal and symmetric. The anterior communicating artery is seen. No aneurysms are seen. Posterior circulation: Visualized portions of the vertebral arteries demonstrate normal caliber, and join to form a normal appearing basilar artery. Flow within the posterior cerebral arteries is normal and symmetric. No aneurysms are seen. NECK CT ANGIOGRAPHY: Carotid system: The great vessels demonstrate a conventional anatomy as they arise from the aortic arch. The origins of the common carotid arteries appear patent. The common carotid arteries demonstrate normal caliber and courses. The bifurcation regions are both widely patent. The internal carotid arteries demonstrate normal calibers and courses. Posterior circulation: The origins of the vertebral arteries both appear widely patent. The more superior extracranial portions of both vertebral arteries also demonstrate normal courses and calibers. They join to form a normal appearing basilar artery. Soft tissues: Visualized neck soft tissues demonstrate no suspicious abnormalities. Bones: No suspicious bony lesions. Visualized cervical spine appears normally aligned. Earlier noted slightly displaced fracture involving left C1 facet is again seen and unchanged. IMPRESSION: 1. No hemodynamically significant stenosis or aneurysm is seen in the intracranial circulation. 2. No hemodynamically significant stenosis or aneurysm is seen in the neck arteries. 3. No evidence of dissection in left vertebral artery adjacent to the level of low slightly displaced left C1 facet fracture. 4. Large right frontal scalp hematoma and swelling. No acute skull fracture. Any quantitative measurements of stenosis were performed using NASCET criteria. Dictated by: Isaac Love M.D. on 12/05/2023 at 17:13 Approved by: Isaac Love M.D. on 12/05/2023 at 17:19
[2023-12-05 16:40] LABS: Add Manual Diff / Slide Review NO; Basophils Absolute Auto 100 /uL (0-100); Basophils Percent Auto 0.6 % (0-2); Eosinophils Absolute Auto 300 /uL (0-450); Eosinophils Percent Auto 3.2 % (2-4); Hematocrit 34.9 % (36-46); Hemoglobin 11.5 g/dL (12.0-16.0); Lymphocytes Absolute Auto 2300 /uL (1100-4500); Lymphocytes Percent Auto 23.5 % (25-40); Mean Corpuscular HGB Conc 32.9 % (30-36); Mean Corpuscular Hemoglobin 28.6 PG (26-34); Mean Corpuscular Volume 86.7 fL (80-100); Monocytes Absolute Auto 900 /uL (0-900); Monocytes Percent Auto 9.2 % (3-14); Neutrophils Absolute Auto 6100 /uL (1500-7000); Neutrophils Percent Auto 63.5 % (50-75); Platelet Count 352 X10^3/uL (150-400); Red Blood Cell Count 4.02 X10^6/uL (4.0-5.2); Red Cell Distribution Width 14.9 % (11.6-14.8); White Blood Cell Count 9.6 X10^3/uL (4.5-11.0)
[2023-12-05] MEDS: MORPHINE 2 MG/ML INJ IV (16:48)
--- NOTE | 2023-12-05 16:50 | ED_ITS ---
HPI - Fall General Chief Complaint: Trauma Stated Complaint: fall + thinner Time Seen by Provider: 12/05/23 15:26 History of Present Illness HPI Narrative: Patient is a 83-year-old female with history of recent TIA hyponatremia presenting today after ground level. She reports that she is difficulty with her left leg and foot she walks with a walker she tripped in the parking lot falling and landing on her left shoulder however she has a laceration and large frontal hematoma more on the right side. She is on aspirin daily. No significant hip pain. No loss of consciousness no nausea or vomiting. She is also complaining of some mild neck pain as well. No chest pain shortness of breath. She denies any dizziness lightheadedness numbness tingling or weakness Related Data Home Medications Medication Instructions Recorded Confirmed coQ10 (ubiquinol) 100 mg capsule 200 mg PO DAILY ##0 10/16/12 11/25/23 (Qunol Oj CoQ10) ketoconazole 2 % shampoo 1 applic topical PRN PRN Rash 02/04/23 11/25/23 cholecalciferol (vitamin D3) 25 25 mcg PO DAILY 11/25/23 11/25/23 mcg (1,000 unit) capsule ferrous sulfate 325 mg (65 mg 325 mg PO DAILY 11/25/23 11/25/23 iron) tablet (Iron (ferrous sulfate)) liothyronine 5 mcg tablet 5 mcg PO DAILY 11/25/23 11/25/23 tolterodine 2 mg capsule,extended 2 mg PO DAILY 11/25/23 11/25/23 release 24 hr vitamin B complex 1 cap PO DAILY 11/25/23 11/25/23 vitamin K2 100 mcg capsule 100 mcg PO .QOD 12/02/23 Previous Rx's Medication Instructions Recorded levothyroxine 100 mcg tablet 100 mcg PO DAILY #90 tabs 02/04/23 aspirin 81 mg tablet,delayed 81 mg PO DAILY #30 tabs 11/26/23 release atorvastatin 10 mg tablet (Lipitor) 10 mg PO HS #90 tabs 11/28/23 esomeprazole magnesium 20 mg 20 mg PO DAILY #90 caps 11/28/23 capsule,delayed release (Nexium 24HR) metformin 500 mg tablet 500 mg PO TIDCC #270 tabs 11/28/23 losartan 100 mg tablet 100 mg PO DAILY #30 tabs 11/30/23 sennosides 8.6 mg tablet (senna) 8.6 mg PO BEDTIME #90 tabs 12/02/23 Allergies Allergy/AdvReac Type Severity Reaction Status Date / Time adhesive tape [ADHESIVE TAPE] Allergy Severe PAPER TAPE Verified 10/10/23 16:36 CAUSES RASH, BLISTERS Patient History Medical History Anemia Hyponatremia Osteopenia Dizziness Urinary frequency Vision disorder Psoriasis (~1968) Osteoarthritis (~1989) Chronic cough (~2017) Asthma Allergies Shoulder pain Fracture Foot pain Chronic back pain (~1949) Ankle pain (~2005) Measles Chicken pox Recurrent sinusitis Fibroids History of urinary incontinence (~2010) Hemorrhoid (~1965) GERD (gastroesophageal reflux disease) (~2010) Hypothyroidism (~2009) Diabetes mellitus (~2009) Hypertension (~2010) Head and neck cancer Surgical History Anesthesia History of tonsillectomy (~1946) History of laminectomy (~1989) History of bunionectomy of left great toe (~1993) History of right hip replacement (~2015) History of left knee replacement (~2012) Trigger finger of right thumb (~2015) History of cataract removal with insertion of prosthetic lens (~2015) Hx of total knee arthroplasty (~06/15/16) Family History Father Cancer Mother Cancer Diabetes mellitus Brother History of heart disease Hypertension Stroke Sister Cancer Grandfather Pneumonia Grandfather History of heart disease Grandmother Stroke Social History household members: spouse Smoking Status: Former smoker alcohol intake: current Smoking Status: Former smoker alcohol intake frequency: holidays/special occasions only Substance Use Type: does not use Exam Initial Vital Signs Initial Vital Signs: Vital Signs Temperature 98.5 F 12/05/23 15:34 Pulse Rate 78 12/05/23 15:34 Respiratory Rate 16 12/05/23 15:34 Blood Pressure 205/83 H 12/05/23 15:34 Pulse Oximetry 97 12/05/23 15:34 Oxygen Delivery Method Room Air 12/05/23 15:34 GENERAL: Alert 83-year-old female and in no acute distress. HEENT: Head large hematoma right forehead with 4 cm laceration active arterial bleed,EOMI, pupils reactive, face symmetric, moist mucous membranes NECK: In C-collar but tender CARDIOVASCULAR: Regular rate and rhythm without murmurs, rubs or gallops. RESPIRATORY: Breath sounds equal bilaterally, no wheezes rales or rhonchi. ABDOMEN: Soft, nontender. Normoactive bowel sounds all 4 quadrants. No guarding or rebound. EXTREMITIES: Normal range of motion, no clubbing or edema. Neurovascularly intact. Pelvis stable able to move both legs left foot is inverted but she says that is normal Left upper shoulder tender distal radial pulse intact no clavicle step NEUROLOGICAL: Alert and oriented x4. 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 SKIN: Right forehead hematoma and laceration multiple other right cheek skin tear no other significant lacerations she also had a skin tear on the left hand Procedures Laceration Repair Laceration 1: Site: face (forehead) Side (If applicable): right Size (cm): 4 Description: linear Depth: simple, single layer Local Anesthetic: lidocaine 1% and with epi Amount of anesthesia used (mL): 10 Pre-repair: wound explored, irrigated extensively and deep structures intact Skin layer closed with: nylon Skin layer suture size: 4-0 Number of sutures: 4 Course Orders Ordered: ED Orders 12/05/23 15:30 CBC Auto Diff [Complete Blood Count AUTO DIFF] Stat CMP [Comprehensive Metabolic Panel] Stat 12/05/23 15:38 CT cervical spine wo con Stat CT facial bones wo con Stat CT head/brain wo con Stat Chest [XR chest 1V] Stat XR shoulder LT min 2V Stat 12/05/23 16:21 CT angio head and neck Stat 12/05/23 17:14 EKG-12 Lead Stat Discontinued Medications Diphtheria/Tetanus/Acell Pertussis (Tet,Diph,Pertuss(Acell),Vac/Pf 0.5 Ml Syringe) 0.5 ml IM .ONCE ONE Stop: 12/05/23 17:20 Last Admin: 12/05/23 17:39 Dose: 0.5 ml Documented By: KEB Hydromorphone HCl (Hydromorphone 1 Mg Inj) 0.5 mg IV NOW ONE Stop: 12/05/23 17:32 Last Admin: 12/05/23 17:42 Dose: 0.5 mg Documented By: EULOGIO Hydromorphone HCl (Hydromorphone 1 Mg Inj) 1 mg IV NOW ONE Stop: 12/05/23 18:13 Last Admin: 12/05/23 18:27 Dose: 1 mg Documented By: CLARENCE Morphine Sulfate (Morphine 2 Mg/Ml Inj) 2 mg IV NOW ONE Stop: 12/05/23 16:43 Last Admin: 12/05/23 16:48 Dose: 2 mg Documented By: CLARENCE Vital Signs Vital signs: Vital Signs - 8 hr 12/05/23 15:34 12/05/23 15:36 12/05/23 15:37 Temperature 98.5 F Pulse Rate 78 77 79 Respiratory Rate 16 19 19 Blood Pressure 205/83 H Pulse Oximetry 97 Oxygen Delivery Method Room Air Oxygen Flow Rate 12/05/23 15:37 12/05/23 16:00 12/05/23 16:01 Temperature Pulse Rate 82 82 Respiratory Rate 27 H 20 Blood Pressure 205/83 H Pulse Oximetry 93 94 Oxygen Delivery Method Oxygen Flow Rate 12/05/23 16:01 12/05/23 16:15 12/05/23 16:20 Temperature Pulse Rate 86 85 Respiratory Rate 24 30 H Blood Pressure 210/90 H Pulse Oximetry 97 96 Oxygen Delivery Method Room Air Room Air Oxygen Flow Rate 12/05/23 16:25 12/05/23 16:30 12/05/23 16:30 Temperature Pulse Rate 124 H 103 H Respiratory Rate 29 H 24 Blood Pressure 212/90 H Pulse Oximetry 95 98 Oxygen Delivery Method Room Air Oxygen Flow Rate 12/05/23 16:30 12/05/23 16:35 12/05/23 16:40 Temperature Pulse Rate 103 H 120 H 124 H Respiratory Rate 24 25 H Blood Pressure 212/90 H Pulse Oximetry 98 95 91 Oxygen Delivery Method Room Air Room Air Room Air Oxygen Flow Rate 12/05/23 16:45 12/05/23 17:05 12/05/23 17:10 Temperature Pulse Rate 121 H 96 H 96 H Respiratory Rate 20 26 H 24 Blood Pressure 182/83 H Pulse Oximetry 91 93 Oxygen Delivery Method Room Air Nasal Cannula Oxygen Flow Rate 2 12/05/23 18:15 12/05/23 18:50 Temperature Pulse Rate 117 H 96 H Respiratory Rate 17 Blood Pressure 160/85 H Pulse Oximetry 94 97 Oxygen Delivery Method Room Air Nasal Cannula Nasal Cannula Oxygen Flow Rate 2 2 - Fall Lab Data 12/05/23 15:30 12/05/23 15:30 Labs: Lab Results 12/05/23 Range/Units 15:30 WBC 9.6 (4.5-11.0) X10^3/uL RBC 4.02 (4.0-5.2) X10^6/uL Hgb 11.5 L (12.0-16.0) g/dL Hct 34.9 L (36-46) % MCV 86.7 (80-100) fL MCH 28.6 (26-34) PG MCHC 32.9 (30-36) % RDW 14.9 H (11.6-14.8) % Plt Count 352 (150-400) X10^3/uL Neut % (Auto) 63.5 (50-75) % Lymph % (Auto) 23.5 L (25-40) % [place]oun % (Auto) 9.2 (3-14) % Eos % (Auto) 3.2 (2-4) % Baso % (Auto) 0.6 (0-2) % Neut # (Auto) 6100 (1378-9095) /uL Lymph # (Auto) 2300 (2463-3043) /uL [place] # (Auto) 900 (0-900) /uL Eos # (Auto) 300 (0-450) /uL Baso # (Auto) 100 (0-100) /uL Sodium 128 L (137-145) mmol/L Potassium 4.7 (3.4-5.1) mmol/L Chloride 97 L (98-107) mmol/L Carbon Dioxide 25 (22-32) mmol/L BUN 12 (7-17) mg/dL Creatinine 0.88 (0.52-1.04) mg/dL Estimated GFR > 60 (>60) mL/min BUN/Creatinine Ratio 13.6 (6-22) Glucose 106 (80-110) mg/dL Calcium 9.3 (8.4-10.2) mg/dL Total Bilirubin 0.4 (0.2-1.3) mg/dL AST 45 H (14-36) IU/L ALT 17 (<35) IU/L Alkaline Phosphatase 60 (38-126) U/L Total Protein 6.6 (6.3-8.2) g/dL Albumin 3.7 (3.5-5.0) g/dL Globulin 2.9 (1.7-4.1) g/dL Albumin/Globulin Ratio 1.3 (1.0-2.8) Point of Care Testing Glucose POC [address] scan - head: Radiologist's Impression: PROCEDURE: CT HEAD/BRAIN WO CON INDICATIONS: fall TECHNIQUE: Noncontrast 4.5 mm thick angled axial sections acquired from the foramen magnum to the vertex, with coronal and sagittal reformats. For radiation dose reduction, the following was used: automated exposure control, adjustment of mA and/or kV according to patient size. COMPARISON: [facility], MR, MR HEAD/BRAIN WO CON, 11/25/2023, 20:14. [facility], CT, CT STROKE, 11/25/2023, 13:18. FINDINGS: Image quality: Diagnostic. CSF spaces: Basal cisterns are patent. No extra-axial fluid collections. The ventricles are symmetric in size and shape. Brain: No intracranial bleeds or masses. There is cerebral volume loss for age, with resultant ventricular and sulcal prominence. There are periventricular and deep white matter chronic small vessel ischemic changes. There is intracranial internal carotid artery atherosclerosis. Skull and face: Large scalp hematoma and swelling in right frontal region is seen. No gross acute displaced skull fracture. Sinuses: Visualized sinuses and mastoids are clear. IMPRESSION: 1. No acute intracranial pathology. 2. Large right frontal scalp hematoma and swelling. No acute skull fracture. Dictated by: Isaac Love M.D. on 12/05/2023 at 16:09 CT - cervical spine: Radiologist's Impression: PROCEDURE: CT CERVICAL SPINE WO CON INDICATIONS: fall TECHNIQUE: Noncontrast 3 mm thick sections acquired from the skull base to the T4 level. Sagittal and coronal reformats were then constructed. For radiation dose reduction, the following was used: automated exposure control, adjustment of mA and/or kV according to patient size. COMPARISON: None. FINDINGS: Image quality: Excellent. Bones: Mildly displaced fracture of the left C1 facet (series 2, image 20 and 19). Mildly displaced intra-articular fracture at the anterior base C2. This does not extend to the dens. There is no evidence of ligamentous injury. Soft tissues: Prevertebral soft tissues are normal in thickness. No paravertebral hematomas. No apical pneumothoraces. IMPRESSION: Displaced fracture of the left C1 facet. Consider neck CTA to exclude vertebral artery injury. Displaced fracture at the base of the C2 vertebral body. No definite ligamentous injury. Findings discussed with Dr. Kaci pantoja at 4:22 p.m. on 12/05/2023. Dictated by: Akin Vásquez M.D. on 12/05/2023 at 16:12 CT face: Radiologist's Impression: PROCEDURE: CT FACIAL BONES WO CON INDICATIONS: fall TECHNIQUE: Noncontrast 2.5 mm thick axial images acquired from the mandible through the frontal sinuses, with coronal and sagittal reformatting. For radiation dose reduction, the following was used: automated exposure control, adjustment of mA and/or kV according to patient size. COMPARISON: None. FINDINGS: Image quality: Excellent. Bones and teeth: Orbital phillips are intact. Sinus phillips show no fracture or deformity. Nasal bones and septum are intact. Visualized portions of the mandible demonstrate no fractures or subluxation. Zygomatic arches are intact. Pterygoid plates are intact. Visualized portions of the skull base and auditory canals are intact. Sinuses: Paranasal sinuses are aerated, without fluid levels, mucosal thickening, or mucoceles. Mastoid air cells are aerated. Soft tissues: No edema, masses, or fluid collections. No enlarged lymph nodes. No soft tissue lacerations or debris. Vascular: Visualized vascular structures appear normal in the absence of contrast. Bony vascular foramina and canals are intact. IMPRESSION: 1. No gross acute facial bone or nasal bone fracture. Nasal septum is midline. 2. Bilateral orbital phillips and orbital globes are intact. 3. Bilateral paranasal sinuses are well aerated. Dictated by: Isaac Love M.D. on 12/05/2023 at 16:06 Extremity x-ray #1: Radiologist's Impression: PROCEDURE: XR SHOULDER LT MIN 2V INDICATIONS: pain fall TECHNIQUE: 2 views of the shoulder were acquired. COMPARISON: None. FINDINGS: Bones: Acute comminuted fracture involving surgical neck/proximal humeral shaft is seen with anterior and medial displacement of proximal humeral shaft in relation to humeral head. No dislocation. No other fracture is seen. No suspicious bony lesions. Visualized ribs appear intact. Soft tissues: No suspicious soft tissue calcifications. IMPRESSION: Acute comminuted and displaced proximal humeral shaft/surgical neck fracture as above. Dictated by: Isaac Love M.D. on 12/05/2023 at 16:04 Chest x-ray: Radiologist's Impression: PROCEDURE: XR CHEST 1V INDICATIONS: fall TECHNIQUE: One view of the chest was acquired. COMPARISON: [facility], , XR CHEST 2V, 04/05/2022, 12:15. FINDINGS: Surgical changes and devices: None. Lungs and pleura: There is pulmonary vascular congestion and extensive hazy opacities throughout bilateral lung [place] suggestive of pulmonary edema. No definite focal infiltrate. No pleural effusions or pneumothorax. Mediastinum: Mediastinal contours appear normal. Heart size is enlarged Bones and chest wall: No suspicious bony lesions. Overlying soft tissues appear unremarkable. IMPRESSION: Finding is suggestive of CHF. Underlying interstitial infiltrates cannot be entirely excluded. No significant pleural effusion. No gross pneumothorax. Dictated by: Isaac Love M.D. on 12/05/2023 at 16:01 ECG Data Attestation: I personally reviewed and interpreted this ECG as follows: Prior ECG tracings: available for review Interpretation: Sinus rhythm wide complex no ST changes rate 122 MDM Narrative Medical decision making narrative: MDM CC: Left shoulder pain and neck pain after fall Complicating co-morbidities: Recent TIA on aspirin diabetes Data collected from: EMS family Medical records reviewed: Recent admission Differential considered: Intracranial hemorrhage, syncope versus mechanical fall Exam documented above, pertinent findings include: Significant right forehead hematoma with laceration 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 Pertinent findings: CBC, no leukocytosis or anemia, WBCs 9.6 hemoglobin 11.5 hematocrit 34.9 platelets 352 CMP hyponatremia sodium 128 it was previously 123, creatinine stable at 0.88, glucose 106 Liver enzymes bilirubin within normal limits Independently reviewed EKG as above no ischemia similar to prior EKGs wide complex Imaging studies independently reviewed: CT head shows large right frontal scalp hematoma Cervical spine C1 fracture with displaced left thigh set, C2 fracture with displacement at the base CT angio does not show any dissection Shoulder shows left humeral head fracture Chest x-ray shows suggestive of CHF Consultations: 18:10 Dr. Sheridan ED physician at [facility] updated patient's symptoms test results accepts patient for transfer Treatments: Morphine and Dilaudid Re-evaluations: Patient remains in inflatable collar which seems to be working well. She remains neurovascularly intact. Continues to have pain in shoulder and neck. Discussion: Patient 83-year-old female presenting today with a mechanical fall. She does have difficulty walking uses a walker has trouble with her left foot at baseline but tripped in the parking lot. She landed on her left shoulder and the glasses hit her right forehead. She would significant hematoma on the forehead with a laceration. Discharge Plan Departure Patient Disposition: [facility] Clinical Impression: C1 cervical fracture, C2 cervical fracture Prescriptions: No Action coQ10 (ubiquinol) [Qunol Oj CoQ10] 100 mg Capsule 200 mg PO DAILY Qty: 0 esomeprazole magnesium [Nexium 24HR] 20 mg capsule,delayed release(DR/EC) 20 mg PO DAILY Qty: 90 3RF atorvastatin [Lipitor] 10 mg tablet 10 mg PO HS Qty: 90 3RF metformin 500 mg tablet 500 mg PO TIDCC Qty: 270 1RF losartan 100 mg tablet 100 mg PO DAILY Qty: 30 0RF vitamin K2 100 mcg capsule 100 mcg PO .QOD sennosides [senna] 8.6 mg tablet 8.6 mg PO BEDTIME Qty: 90 0RF ketoconazole 2 % shampoo 1 applic topical PRN PRN (Reason: Rash) levothyroxine 100 mcg tablet 100 mcg PO DAILY Qty: 90 3RF ferrous sulfate [Iron (ferrous sulfate)] 325 mg (65 mg iron) Tablet 325 mg PO DAILY vitamin B complex Capsule 1 cap PO DAILY cholecalciferol (vitamin D3) 25 mcg (1,000 unit) Capsule 25 mcg PO DAILY liothyronine 5 mcg tablet 5 mcg PO DAILY tolterodine 2 mg capsule,extended release 24hr 2 mg PO DAILY aspirin 81 mg tablet,delayed release (DR/EC) 81 mg PO DAILY Qty: 30 0RF Referrals: Surya Pitts, [Primary Care Provider] -
[2023-12-05 16:55] LABS: Alanine Aminotransferase 17 IU/L (<35); Albumin 3.7 g/dL (3.5-5.0); Albumin Globulin Ratio 1.3 (1.0-2.8); Alkaline Phosphatase 60 U/L (38-126); Aspartate Aminotransferase 45 IU/L (14-36); BUN Creatinine Ratio 13.6 (6-22); Bilirubin Total 0.4 mg/dL (0.2-1.3); Blood Urea Nitrogen 12 mg/dL (7-17); Calcium 9.3 mg/dL (8.4-10.2); Carbon Dioxide 25 mmol/L (22-32); Chloride 97 mmol/L (98-107); Estimated Glomerular Filt Rate > 60 mL/min (>60); Globulin 2.9 g/dL (1.7-4.1); Glucose 106 mg/dL (80-110); HEMOLYSIS < 15 (0-50); Potassium 4.7 mmol/L (3.4-5.1); Sodium 128 mmol/L (137-145); Total Protein 6.6 g/dL (6.3-8.2)
--- NOTE | 2023-12-05 17:22 | EKG_ITS ---
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
[2023-12-05] MEDS: TET,DIPH,PERTUSS(ACELL),VAC/PF 0.5 ML SYRINGE IM (17:39)
[2023-12-05] MEDS: HYDROMORPHONE 1 MG INJ 0.5 MG IV (17:42)
[2023-12-05] MEDS: HYDROMORPHONE 1 MG INJ IV ×2 (18:27→19:42)
== END 2023-12-05 19:44 | disposition short-term general hospital (02) ==
PROVIDERS: Emergency Provider Emergency Medicine; Family Provider Internal Medicine; PCP Family Medicine
DX: S12.000A Unspecified displaced fracture of first cervical vertebra, initial encounter for closed fracture (principal); S12.100A Unspecified displaced fracture of second cervical vertebra, initial encounter for closed fracture; M25.512 Pain in left shoulder; S00.83XA Contusion of other part of head, initial encounter; S01.81XA Laceration without foreign body of other part of head, initial encounter; R00.0 Tachycardia, unspecified; E87.1 Hypo-osmolality and hyponatremia; W01.0XXA Fall on same level from slipping, tripping and stumbling without subsequent striking against object, initial encounter; Z86.73 Personal history of transient ischemic attack (TIA), and cerebral infarction without residual deficits; Z23 Encounter for immunization
CPT/HCPCS: 12013; 70450; 70486; 70496; 70498; 71045; 72125; 73030; 80053; 85025; 90471; 93005; 93010; 96374; 96375; 96376; 99285; 90715; J1171; J2270; Q9967

== ENCOUNTER → 2024-01-20 09:39 | Outpatient (CLI) | payer MEDICARE, SELFPAY ==
[2023-11-25 16:41] VITALS: BMI 31.1
--- NOTE | 2024-01-20 09:40 | DI.CT.S_ITS ---
PROCEDURE: CT CERVICAL SPINE WO CON INDICATIONS: eval c spine fracture TECHNIQUE: Noncontrast 3 mm thick sections acquired from the skull base to the T4 level. Sagittal and coronal reformats were then constructed. For radiation dose reduction, the following was used: automated exposure control, adjustment of mA and/or kV according to patient size. COMPARISON: [facility], CT, CT CERVICAL SPINE WO CON, 12/05/2023, 15:44. FINDINGS: Image quality: Excellent. Bones: Again seen mildly displaced fracture of the left C1 facet, similar appearance to prior. Mildly displaced intra-articular fracture involving the anterior inferior endplate of C2 demonstrates cortex formation along the fracture margins. Visualized superior ribs are intact. Multilevel degenerative changes of the cervical spine are redemonstrated. Mild anterolisthesis of C4 on C5 and C5 on C6. Minimal compression deformity of the superior endplate of T3 appears new from prior. Diffusely decreased osseous mineralization. Severe bilateral temporomandibular joint degeneration. Soft tissues: Prevertebral soft tissues are normal in thickness. No paravertebral hematomas. No apical pneumothoraces. IMPRESSION: Similar appearance and alignment of mildly displaced left C1 facet fracture. Cortex formation along the margins of the anterior inferior endplate fracture of C2 with similar alignment. New minimal compression deformity of the superior endplate of T3. Redemonstration of multilevel degenerative changes of the cervical spine and decreased osseous mineralization. Dictated by: German Muhammad M.D. on 01/20/2024 at 13:36 Approved by: German Muhammad M.D. on 01/20/2024 at 13:42
== END ==
PROVIDERS: Family Provider Internal Medicine; PCP Family Medicine; Referring Provider Family Medicine; Visit Provider Family Medicine
DX: S12.000A Unspecified displaced fracture of first cervical vertebra, initial encounter for closed fracture (principal); S12.100A Unspecified displaced fracture of second cervical vertebra, initial encounter for closed fracture; M47.812 Spondylosis without myelopathy or radiculopathy, cervical region; M43.12 Spondylolisthesis, cervical region; M26.643 Arthritis of bilateral temporomandibular joint; X58.XXXA Exposure to other specified factors, initial encounter
CPT/HCPCS: 72125

== ENCOUNTER → 2024-01-31 09:59 | Outpatient (CLI) | payer MEDICARE, SELFPAY ==
[2023-11-25 16:41] VITALS: BMI 31.1
[2024-01-31 10:17] LABS: Add Manual Diff / Slide Review NO; Basophils Absolute Auto 0 /uL (0-100); Basophils Percent Auto 0.4 % (0-2); Eosinophils Absolute Auto 200 /uL (0-450); Eosinophils Percent Auto 2.5 % (2-4); Hematocrit 33.4 % (36-46); Hemoglobin 10.9 g/dL (12.0-16.0); Lymphocytes Absolute Auto 1200 /uL (1100-4500); Lymphocytes Percent Auto 12.9 % (25-40); Mean Corpuscular HGB Conc 32.7 % (30-36); Mean Corpuscular Hemoglobin 28.2 PG (26-34); Mean Corpuscular Volume 86.3 fL (80-100); Monocytes Absolute Auto 600 /uL (0-900); Monocytes Percent Auto 6.3 % (3-14); Neutrophils Absolute Auto 7400 /uL (1500-7000); Neutrophils Percent Auto 77.9 % (50-75); Platelet Count 344 X10^3/uL (150-400); Red Blood Cell Count 3.87 X10^6/uL (4.0-5.2); Red Cell Distribution Width 17.4 % (11.6-14.8); White Blood Cell Count 9.5 X10^3/uL (4.5-11.0)
[2024-01-31 11:10] LABS: HEMOLYSIS < 15 (0-50); Iron 54 ug/dL (37-170)
[2024-01-31 11:18] LABS: Alanine Aminotransferase 10 IU/L (<35); Albumin Globulin Ratio 1.3 (1.0-2.8); Alkaline Phosphatase 82 U/L (38-126); Aspartate Aminotransferase 18 IU/L (14-36); BUN Creatinine Ratio 11.6 (6-22); Bilirubin Total 0.6 mg/dL (0.2-1.3); Blood Urea Nitrogen 11 mg/dL (7-17); Calcium 9.2 mg/dL (8.4-10.2); Carbon Dioxide 24 mmol/L (22-32); Chloride 102 mmol/L (98-107); Estimated Glomerular Filt Rate 59 mL/min (>60); Globulin 2.4 g/dL (1.7-4.1); Glucose 102 mg/dL (80-110); HEMOLYSIS < 15 (0-50); Sodium 132 mmol/L (137-145); Total Protein 5.4 g/dL (6.3-8.2)
[2024-01-31 11:22] LABS: Percent Iron Saturation 36 % (15-50); Total Iron Binding Capacity 152 ug/dL (265-497); Transferrin 144 mg/dL (206-381)
[2024-01-31 11:41] LABS: Thyroid Stimulating Hormone 0.516 uIU/mL (0.47-4.68)
[2024-01-31 11:59] LABS: Vitamin B12 364 pg/mL (239-931)
== END ==
PROVIDERS: Family Provider Internal Medicine; PCP Family Medicine; Referring Provider Family Medicine; Visit Provider Family Medicine
DX: S12.9XXA Fracture of neck, unspecified, initial encounter (principal); D64.9 Anemia, unspecified; E87.1 Hypo-osmolality and hyponatremia; E03.9 Hypothyroidism, unspecified; E11.9 Type 2 diabetes mellitus without complications; I10 Essential (primary) hypertension
CPT/HCPCS: 80053; 82607; 83540; 83550; 84439; 84443; 85025

== ENCOUNTER 2024-02-19 13:58 | Observation (INO) | payer MEDICARE, SELFPAY ==
[2023-11-25 16:41] VITALS: BMI 31.1
[2024-02-19] VITALS (49 sets, daily range): BP systolic 75–181; BP diastolic 51–110; PULSE 69–133; RESP 15–33; TEMP 36.7; O2SAT 91–100; BMI 28.1
--- NOTE | 2024-02-19 14:11 | EKG_ITS ---
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
--- NOTE | 2024-02-19 14:11 | DI.RAD.S_ITS ---
PROCEDURE: XR CHEST 1V INDICATIONS: chest pain TECHNIQUE: One view of the chest was acquired. COMPARISON: [facility], CR, XR SHOULDER LT MIN 2V, 12/05/2023, 15:41. [facility], CR, XR CHEST 1V, 12/05/2023, 15:41. FINDINGS: Surgical changes and devices: None. Lungs and pleura: An incomplete inspiratory result is noted, causing a crowded appearance to the lung markings. No focal infiltrates are seen. No pneumothorax or significant pleural effusions are seen. Mediastinum: The cardiac contours are within normal limits. The aorta demonstrates calcification and tortuosity. Bones and chest wall: No suspicious bony lesions. There is a left humeral neck fracture. Age-appropriate bony degenerative changes are seen. Overlying soft tissues appear unremarkable. IMPRESSION: Low lung volumes, without an acute abnormality seen by plain film. Left humeral neck fracture noted. Dictated by: Gerald Dolan M.D. on 02/19/2024 at 13:51 Approved by: Gerald Dolan M.D. on 02/19/2024 at 13:52
[2024-02-19] MEDS: SODIUM CHLORIDE 0.9% 1,000 ML 1000 ML IV (14:18)
[2024-02-19 14:25] LABS: INR 1.1 (0.9-1.3); Prothrombin Time 12.1 SECONDS (9.4-12.5)
[2024-02-19 14:28] LABS: PTT Partial Thromboplastin Tim 34 SECONDS (25.1-36.5)
[2024-02-19 14:30] LABS: Alanine Aminotransferase 14 IU/L (<35); Albumin 3.4 g/dL (3.5-5.0); Albumin Globulin Ratio 1.2 (1.0-2.8); Alkaline Phosphatase 79 U/L (38-126); BUN Creatinine Ratio 9.8 (6-22); Bilirubin Total 0.8 mg/dL (0.2-1.3); Blood Urea Nitrogen 9 mg/dL (7-17); Calcium 8.9 mg/dL (8.4-10.2); Carbon Dioxide 21 mmol/L (22-32); Chloride 99 mmol/L (98-107); Creatine Kinase 34 U/L (30-135); Estimated Glomerular Filt Rate > 60 mL/min (>60); Globulin 2.9 g/dL (1.7-4.1); Glucose 103 mg/dL (80-110); Lipase 66 U/L (23-300); Sodium 129 mmol/L (137-145); Total Protein 6.3 g/dL (6.3-8.2)
--- NOTE | 2024-02-19 14:30 | ED.GENADULT ---
HPI - General Adult General Chief complaint: Abdominal Pain Stated complaint: Afib/ ABD pain Time Seen by Provider: 02/19/24 14:19 Source: patient Mode of arrival: Ambulatory History of Present Illness HPI narrative: 83-year-old female with history of November 2023 with C1-C2 fracture being managed in collar without surgery so far through [facility], most recently had x-rays earlier this month, plan is to remain in the collar at least through next x-rays to be done in February, also has left arm fracture treated medically from the same fall, still wearing that sling on her left arm. This morning she was feeling okay, had dizziness this afternoon that has been persisting, no sensation of palpitations or fast heart racing, no new fall or trauma. No numbness or weakness to face arm or leg. She has not had a bowel movement for couple of days, some abdominal cramping. No black or red stools. She denies painful urination or frequency of urination, but has been able to urinate. No skin rashes. No fevers or chills. She denies any recent cough or shortness of breath symptoms. She also denies any problems known to have heart rate problems, fast or slow, no abnormal rhythms known to her. Related Data Home Medications Medication Instructions Recorded Confirmed coQ10 (ubiquinol) 100 mg capsule 200 mg PO DAILY ##0 10/16/12 02/19/24 (Qunol Oj CoQ10) ketoconazole 2 % shampoo 1 applic topical PRN PRN Rash 02/04/23 02/19/24 cholecalciferol (vitamin D3) 25 25 mcg PO DAILY 11/25/23 02/19/24 mcg (1,000 unit) capsule fluticasone 250 mcg-salmeterol 50 1 ea inhalation BID 01/17/24 02/19/24 mcg/dose blistr powdr for inhalation magnesium chloride 500 mg PO QAM 01/17/24 02/19/24 Previous Rx's Medication Instructions Recorded aspirin 81 mg tablet,delayed 81 mg PO DAILY #30 tabs 11/26/23 release atorvastatin 10 mg tablet (Lipitor) 10 mg PO HS #90 tabs 11/28/23 esomeprazole magnesium 20 mg 20 mg PO DAILY #90 caps 11/28/23 capsule,delayed release (Nexium 24HR) metformin 500 mg tablet 500 mg PO TIDCC #270 tabs 11/28/23 losartan 100 mg tablet 100 mg PO DAILY #30 tabs 01/11/24 levothyroxine 100 mcg tablet 100 mcg PO DAILY #90 tabs 01/30/24 liothyronine 5 mcg tablet 5 mcg PO DAILY #90 tabs 01/30/24 Allergies Allergy/AdvReac Type Severity Reaction Status Date / Time adhesive tape [ADHESIVE TAPE] Allergy Severe PAPER TAPE Verified 02/14/24 13:39 CAUSES RASH, BLISTERS Patient History Medical History Cervical compression fracture Fracture of proximal end of left humerus Anemia Hyponatremia Osteopenia Dizziness Urinary frequency Vision disorder Psoriasis (~1968) Osteoarthritis (~1989) Chronic cough (~2017) Asthma Allergies Shoulder pain Fracture Foot pain Chronic back pain (~1949) Ankle pain (~2005) Measles Chicken pox Recurrent sinusitis Fibroids History of urinary incontinence (~2010) Hemorrhoid (~1965) GERD (gastroesophageal reflux disease) (~2010) Hypothyroidism (~2009) Diabetes mellitus (~2009) Hypertension (~2010) Head and neck cancer Surgical History Anesthesia History of tonsillectomy (~1946) History of laminectomy (~1989) History of bunionectomy of left great toe (~1993) History of right hip replacement (~2015) History of left knee replacement (~2012) Trigger finger of right thumb (~2015) History of cataract removal with insertion of prosthetic lens (~2015) Hx of total knee arthroplasty (~06/15/16) Family History Father Cancer Mother Cancer Diabetes mellitus Brother History of heart disease Hypertension Stroke Sister Cancer Grandfather Pneumonia Grandfather History of heart disease Grandmother Stroke Social History household members: spouse Smoking Status: Former smoker alcohol intake: never Smoking Status: Former smoker alcohol intake frequency: holidays/special occasions only Exam Narrative Exam Narrative: GENERAL: Well-developed patient, in mild distress. HEAD: Atraumatic. Normocephalic. EYES: Pupils equal round and reactive. Extraocular motions intact. No scleral icterus. No injection or drainage. ENT: Nose without bleeding, purulent drainage. Throat without erythema, tonsillar hypertrophy or exudate. Airway patent. Wearing cervical collar NECK: Trachea midline. Non tender CARDIOVASCULAR: Fast rate regular rhythm, without murmurs, gallops, or rubs. RESPIRATORY: Clear to auscultation. Breath sounds equal bilaterally. No wheezes, rales, or rhonchi. GASTROINTESTINAL: Abdomen soft, non-tender, nondistended. EXTREMITIES: No edema or joint tenderness. Wearing left shoulder sling, able to move her fingers right hand, good ham curer strength. BACK: Nontender without deformity or crepitance. No flank tenderness. NEURO: AOx3. Motor functions grossly nonfocal SKIN: No rash or erythema of visible areas Initial Vital Signs Initial Vital Signs: Vital Signs Pulse Rate 128 H 02/19/24 14:00 Respiratory Rate 18 02/19/24 14:00 Blood Pressure 75/55 L 02/19/24 14:00 Pulse Oximetry 98 02/19/24 14:00 Oxygen Delivery Method Room Air 02/19/24 14:00 Course Orders Ordered: Acetaminophen (Acetaminophen 325 Mg Tablet) 650 mg PO Q6H PRN PRN Reason: Fever/Mild Pain (1-3) Albuterol (Albuterol 2.5 Mg/3 Ml Neb (Adult)) 2.5 mg INH Q4HRWA [facility] Albuterol (Albuterol 2.5 Mg/3 Ml Neb (Adult)) 2.5 mg INH Q2HR PRN PRN Reason: Shortness Of Breath Aspirin (Aspirin Ec 81 Mg Tablet) 81 mg PO DAILY [facility] Atorvastatin Calcium (Atorvastatin 20 Mg Tablet) 10 mg PO BEDTIME [facility] Budesonide (Budesonide 0.5 Mg/2 Ml Neb) 0.5 mg INH RTBID [facility] Heparin Sodium (Porcine) (Heparin 5,000 Unit/Ml Vial) 5,000 unit SUBCUT BID [facility] Last Admin: 02/19/24 23:42 Dose: Not Given Documented By: MM Hydromorphone HCl (Hydromorphone 0.5 Mg Inj) 0.5 mg IV Q2H PRN PRN Reason: Pain, Severe (7-10) Sodium Chloride (Normal Saline 0.9%) 1,000 mls @ 75 mls/hr IV CONT [facility] Last Admin: 02/19/24 20:39 Dose: 75 mls/hr Documented By: AKP Levothyroxine Sodium (Levothyroxine 100 Mcg Tablet) 100 mcg PO DAILY [facility] Liothyronine Sodium (Liothyronine 5 Mcg Tablet) 5 mcg PO DAILY [facility] Losartan Potassium (Losartan 50 Mg Tablet) 100 mg PO DAILY [facility] Naloxone HCl (Naloxone 0.4 Mg/Ml Vial) 0.2 mg IV Q2MIN PRN PRN Reason: Opiate Reversal Non-Formulary Medication (Ketoconazole) 1 applictn TOP PRN PRN PRN Reason: Rash Non-Formulary Medication (Magnesium Chloride) 500 mg PO DAILY [facility] Ondansetron HCl (Ondansetron 4 Mg/2 Ml Inj) 4 mg IV Q8HR PRN PRN Reason: Nausea And Vomiting Oxycodone HCl (Oxycodone Ir 5 Mg Tablet) 5 mg PO Q3H PRN PRN Reason: Pain, Moderate (4-6) Pantoprazole Sodium (Pantoprazole Dr 40 Mg Tablet) 40 mg PO 0600 [facility] Sodium Chloride (Sodium Chloride 0.9% Flush) 10 ml IV BID [facility] Discontinued Medications Aspirin (Aspirin 81 Mg Chew Tab) 324 mg PO NOW ONE Stop: 02/19/24 14:12 Last Admin: 02/19/24 14:38 Dose: 243 mg Documented By: GEMMA Sodium Chloride (Normal Saline 0.9%) 1,000 mls @ 1,000 mls/hr IV BOLUS ONE Stop: 02/19/24 15:14 Last Infusion: 02/19/24 16:15 Dose: Infused Documented By: Admin: 02/19/24 14:18 Dose: 1,000 mls/hr Documented By: BEATRIZ Magnesium Sulfate (Magnesium Sulfate) 2 gm in 50 mls @ 25 mls/hr IV NOW ONE Stop: 02/19/24 18:25 Last Infusion: 02/19/24 18:28 Dose: Infused Documented By: GEMMA Co-signed By: [facility] Admin: 02/19/24 16:34 Dose: 25 mls/hr Documented By: GEMMA Co-signed By: BEATRIZ Magnesium Sulfate (Magnesium Sulfate) 2 gm in 50 mls @ 150 mls/hr IV NOW ONE Stop: 02/19/24 17:50 Last Admin: 02/19/24 18:07 Dose: Not Given Documented By: GEMMA Magnesium Sulfate (Magnesium Sulfate) 2 gm in 50 mls @ 25 mls/hr IV NOW ONE Stop: 02/19/24 20:29 Magnesium Sulfate (Magnesium Sulfate) 2 gm in 50 mls @ 25 mls/hr IV NOW ONE Stop: 02/19/24 20:34 Last Infusion: 02/19/24 19:31 Dose: 0 mls/hr Documented By: GEMMA Co-signed By: IMELDA Admin: 02/19/24 18:38 Dose: 25 mls/hr Documented By: GEMMA Co-signed By: BEATRIZ Magnesium Sulfate (Magnesium Sulfate) 4 gm in 100 mls @ 25 mls/hr IV NOW ONE Stop: 02/19/24 23:34 Last Admin: 02/19/24 22:23 Dose: Not Given Documented By: MM Vital Signs Vital signs: Vital Signs - 8 hr 02/19/24 14:00 02/19/24 14:04 02/19/24 14:06 Temperature Pulse Rate 128 H 130 H 83 Respiratory Rate 18 33 H Blood Pressure 75/55 L Pulse Oximetry 98 98 96 Oxygen Delivery Method Room Air Oxygen Flow Rate 02/19/24 14:06 02/19/24 14:08 02/19/24 14:08 Temperature Pulse Rate 132 H Respiratory Rate 32 H Blood Pressure 135/62 81/51 L Pulse Oximetry 95 Oxygen Delivery Method Oxygen Flow Rate 02/19/24 14:10 02/19/24 14:10 02/19/24 14:15 Temperature Pulse Rate 132 H Respiratory Rate 31 H Blood Pressure 81/52 L 88/51 L Pulse Oximetry 93 Oxygen Delivery Method Oxygen Flow Rate 02/19/24 14:15 02/19/24 14:21 02/19/24 14:21 Temperature Pulse Rate 130 H 133 H Respiratory Rate 32 H 25 H Blood Pressure 123/79 Pulse Oximetry 95 95 Oxygen Delivery Method Oxygen Flow Rate 02/19/24 14:29 02/19/24 14:29 02/19/24 14:30 Temperature Pulse Rate 131 H 132 H Respiratory Rate 26 H 24 Blood Pressure 82/62 L Pulse Oximetry 94 97 Oxygen Delivery Method Room Air Oxygen Flow Rate 02/19/24 14:30 02/19/24 14:35 02/19/24 14:35 Temperature Pulse Rate 132 H Respiratory Rate Blood Pressure 98/60 91/54 L Pulse Oximetry Oxygen Delivery Method Oxygen Flow Rate 02/19/24 14:43 02/19/24 14:43 02/19/24 14:50 Temperature Pulse Rate 133 H Respiratory Rate Blood Pressure 98/67 97/54 L Pulse Oximetry 98 Oxygen Delivery Method Oxygen Flow Rate 02/19/24 14:50 02/19/24 15:10 02/19/24 15:20 Temperature Pulse Rate 132 H 81 Respiratory Rate 24 Blood Pressure 101/53 L Pulse Oximetry 98 98 Oxygen Delivery Method Room Air Oxygen Flow Rate 02/19/24 15:20 02/19/24 15:30 02/19/24 15:31 Temperature Pulse Rate 118 H 125 H Respiratory Rate 23 19 Blood Pressure 156/83 H Pulse Oximetry 92 99 Oxygen Delivery Method Oxygen Flow Rate 02/19/24 15:31 02/19/24 15:40 02/19/24 15:40 Temperature Pulse Rate 95 H 129 H Respiratory Rate 23 15 Blood Pressure 149/79 H Pulse Oximetry 97 94 Oxygen Delivery Method Oxygen Flow Rate 02/19/24 15:50 02/19/24 16:00 02/19/24 16:03 Temperature Pulse Rate 124 H 131 H Respiratory Rate 18 23 Blood Pressure 106/54 L Pulse Oximetry 95 95 Oxygen Delivery Method Room Air Oxygen Flow Rate 02/19/24 16:04 02/19/24 16:04 02/19/24 16:11 Temperature Pulse Rate 88 130 H Respiratory Rate Blood Pressure 146/73 H Pulse Oximetry 99 96 Oxygen Delivery Method Oxygen Flow Rate 02/19/24 16:19 02/19/24 16:19 02/19/24 16:25 Temperature Pulse Rate 130 H Respiratory Rate Blood Pressure 97/72 94/52 L Pulse Oximetry 98 Oxygen Delivery Method Oxygen Flow Rate 02/19/24 16:25 02/19/24 16:30 02/19/24 16:30 Temperature Pulse Rate 128 H 112 H Respiratory Rate 16 Blood Pressure 133/78 Pulse Oximetry 94 99 Oxygen Delivery Method Room Air Oxygen Flow Rate 02/19/24 16:36 02/19/24 16:36 02/19/24 16:41 Temperature Pulse Rate 128 H Respiratory Rate Blood Pressure 143/110 H 155/62 H Pulse Oximetry 96 Oxygen Delivery Method Oxygen Flow Rate 02/19/24 16:41 02/19/24 16:50 02/19/24 16:50 Temperature Pulse Rate 127 H 123 H Respiratory Rate 18 Blood Pressure 84/58 L Pulse Oximetry 97 92 Oxygen Delivery Method Oxygen Flow Rate 02/19/24 16:53 02/19/24 16:53 02/19/24 16:59 Temperature Pulse Rate 101 H 88 Respiratory Rate 20 17 Blood Pressure 84/54 L Pulse Oximetry 96 94 Oxygen Delivery Method Oxygen Flow Rate 02/19/24 16:59 02/19/24 17:00 02/19/24 17:01 Temperature Pulse Rate 108 H 103 H Respiratory Rate 18 20 Blood Pressure 143/64 H Pulse Oximetry 91 94 Oxygen Delivery Method Oxygen Flow Rate 02/19/24 17:01 02/19/24 17:10 02/19/24 17:10 Temperature Pulse Rate 98 H Respiratory Rate 19 Blood Pressure 144/89 H 150/65 H Pulse Oximetry 94 Oxygen Delivery Method Oxygen Flow Rate 02/19/24 17:20 02/19/24 17:20 02/19/24 17:30 Temperature Pulse Rate 81 91 H Respiratory Rate 15 18 Blood Pressure 144/65 H Pulse Oximetry 98 97 Oxygen Delivery Method Oxygen Flow Rate 02/19/24 17:31 02/19/24 17:31 02/19/24 17:40 Temperature Pulse Rate 104 H 85 Respiratory Rate 18 21 Blood Pressure 152/65 H Pulse Oximetry 94 94 Oxygen Delivery Method Room Air Oxygen Flow Rate 02/19/24 17:40 02/19/24 17:50 02/19/24 17:50 Temperature Pulse Rate 103 H Respiratory Rate 20 Blood Pressure 146/68 H 144/72 H Pulse Oximetry 94 Oxygen Delivery Method Oxygen Flow Rate 02/19/24 18:00 02/19/24 18:00 02/19/24 18:10 Temperature Pulse Rate 122 H Respiratory Rate 21 Blood Pressure 113/56 L 154/69 H Pulse Oximetry 99 Oxygen Delivery Method Oxygen Flow Rate 02/19/24 18:10 02/19/24 18:20 02/19/24 18:20 Temperature Pulse Rate 75 120 H Respiratory Rate Blood Pressure 119/60 Pulse Oximetry 96 98 Oxygen Delivery Method Room Air Oxygen Flow Rate 02/19/24 18:30 02/19/24 18:30 02/19/24 18:40 Temperature Pulse Rate 74 Respiratory Rate Blood Pressure 151/65 H 113/56 L Pulse Oximetry 98 Oxygen Delivery Method Oxygen Flow Rate 02/19/24 18:40 02/19/24 18:50 02/19/24 18:50 Temperature Pulse Rate 120 H 120 H Respiratory Rate Blood Pressure 115/52 L Pulse Oximetry 97 98 Oxygen Delivery Method Room Air Oxygen Flow Rate 02/19/24 19:00 02/19/24 19:00 02/19/24 19:10 Temperature Pulse Rate 73 Respiratory Rate 22 Blood Pressure 143/65 H 141/64 H Pulse Oximetry 100 Oxygen Delivery Method Room Air Oxygen Flow Rate 02/19/24 19:10 02/19/24 19:20 02/19/24 19:20 Temperature Pulse Rate 71 69 Respiratory Rate Blood Pressure 137/64 Pulse Oximetry 100 97 Oxygen Delivery Method Oxygen Flow Rate 02/19/24 19:30 02/19/24 19:45 Temperature 98.0 F Pulse Rate 71 Respiratory Rate 19 20 Blood Pressure 144/63 H 181/94 H Pulse Oximetry 99 Oxygen Delivery Method Oxygen Flow Rate 0 Medical Decision Making Lab Data Lab results reviewed: Yes I reviewed the patient's lab results. 02/19/24 14:16 02/19/24 14:16 Labs: Lab Results 02/19/24 Range/Units 14:16 WBC 11.8 H (4.5-11.0) X10^3/uL RBC 4.19 (4.0-5.2) X10^6/uL Hgb 11.7 L (12.0-16.0) g/dL Hct 36.2 (36-46) % MCV 86.4 (80-100) fL MCH 28.0 (26-34) PG MCHC 32.4 (30-36) % RDW 18.0 H (11.6-14.8) % Plt Count 389 (150-400) X10^3/uL Neut % (Auto) 72.7 (50-75) % Lymph % (Auto) 17.8 L (25-40) % Cobb % (Auto) 6.6 (3-14) % Eos % (Auto) 2.3 (2-4) % Baso % (Auto) 0.6 (0-2) % Neut # (Auto) 8600 H (3983-9756) /uL Lymph # (Auto) 2100 (2014-6257) /uL Cobb # (Auto) 800 (0-900) /uL Eos # (Auto) 300 (0-450) /uL Baso # (Auto) 100 (0-100) /uL PT 12.1 (9.4-12.5) SECONDS INR 1.1 (0.9-1.3) APTT 34 (25.1-36.5) SECONDS Sodium 129 L (137-145) mmol/L Potassium 4.2 (3.4-5.1) mmol/L Chloride 99 (98-107) mmol/L Carbon Dioxide 21 L (22-32) mmol/L BUN 9 (7-17) mg/dL Creatinine 0.92 (0.52-1.04) mg/dL Estimated GFR > 60 (>60) mL/min BUN/Creatinine Ratio 9.8 (6-22) Glucose 103 (80-110) mg/dL Calcium 8.9 (8.4-10.2) mg/dL Magnesium 0.9 L* (1.6-2.3) mg/dL Total Bilirubin 0.8 (0.2-1.3) mg/dL AST 28 (14-36) IU/L ALT 14 (<35) IU/L Alkaline Phosphatase 79 (38-126) U/L Total Creatine Kinase 34 (30-135) U/L Troponin I 0.015 (0.01-0.034) ng/mL NT-Pro-B Natriuret Pep 3050 H (<450) pg/mL Total Protein 6.3 (6.3-8.2) g/dL Albumin 3.4 L (3.5-5.0) g/dL Globulin 2.9 (1.7-4.1) g/dL Albumin/Globulin Ratio 1.2 (1.0-2.8) Lipase 66 (23-300) U/L Imaging Data Chest x-ray: Radiologist's Impression: [address] [address] XRay Report Signed Patient: Layla Chowdary MR#: [id number] : 1940 Acct:[id number] Age/Sex: 83 / F Date of Service: 02/19/24 Loc: ED Accession Number: [id number] Procedure: XR chest 1V Ordering Provider: Song Narayanan MD PROCEDURE: XR CHEST 1V INDICATIONS: chest pain TECHNIQUE: One view of the chest was acquired. COMPARISON: [facility], CR, XR SHOULDER LT MIN 2V, 12/05/2023, 15:41. [facility], CR, XR CHEST 1V, 12/05/2023, 15:41. FINDINGS: Surgical changes and devices: None. Lungs and pleura: An incomplete inspiratory result is noted, causing a crowded appearance to the lung markings. No focal infiltrates are seen. No pneumothorax or significant pleural effusions are seen. Mediastinum: The cardiac contours are within normal limits. The aorta demonstrates calcification and tortuosity. Bones and chest wall: No suspicious bony lesions. There is a left humeral neck fracture. Age-appropriate bony degenerative changes are seen. Overlying soft tissues appear unremarkable. IMPRESSION: Low lung volumes, without an acute abnormality seen by plain film. Left humeral neck fracture noted. Dictated by: Gerald Dolan M.D. on 02/19/2024 at 13:51 Approved by: Gerald Dolan M.D. on 02/19/2024 at 13:52 CT angiogram chest: Radiologist's Impression: [place] [address] CT Scan Report Signed Patient: Layla Chowdary MR#: [id number] : 1940 Acct:[id number] Age/Sex: 83 / F Date of Service: 02/19/24 Loc: ED Accession Number: [id number] Procedure: CT angio chest PE protocol Ordering Provider: Song Narayanan MD PROCEDURE: CT ANGIO CHEST PE PROTOCOL INDICATIONS: Tachycardia, PE protocol TECHNIQUE: After the administration of intravenous contrast, 2 mm thick sections acquired from the pulmonary apices to the posterior costophrenic angles. 3-dimensional maximum intensity projection (MIP) coronal and sagittal reformats were then acquired through the thorax. For radiation dose reduction, the following was used: automated exposure control, adjustment of mA and/or kV according to patient size. COMPARISON: None. FINDINGS: Image quality: Diagnostic. Pulmonary arteries: Pulmonary arteries are normal in size, and demonstrate no intraluminal filling defects to suggest central pulmonary embolism. Lower Neck: No enlarged lymph nodes. Thyroid: No thyroid nodules which require sonographic follow up, per consensus guidelines. Axillae: No enlarged lymph nodes. Chest Wall: Unremarkable. Bones: There is a comminuted left humeral neck fracture. Mild levoconvex scoliotic curvature is noted. Accentuated thoracic kyphosis is seen. Age-appropriate bony degenerative changes are seen. Lungs and Pleura: Generalized patchy ground-glass opacities can be seen, which are primarily seen centrally. No pneumothorax or pleural effusions are seen. No focal infiltrates are seen. Heart: Heart size is mildly enlarged. No pericardial effusion. Moderate to prominent coronary artery calcification can be seen. Thoracic Vessels: No aortic aneurysm. Mediastinum and Claudia: No enlarged lymph nodes. Esophagus: No wall thickening. There is a small hiatal hernia. Upper Abdomen: Calcified granulomas can be seen within the spleen. A few calcified granulomas are also seen within the liver. Layering gallstones are seen. The visualized portions of the upper abdominal structures are otherwise unremarkable for imaging technique. IMPRESSION: No pulmonary embolus. Generalized patchy ground-glass opacities can be seen. Pulmonary edema is suspected. There is mild cardiomegaly. Comminuted left humeral neck fracture. Additional findings: Moderate to prominent coronary artery calcification Small hiatal hernia Prior granulomatous exposure. Layering gallstones Levoconvex scoliotic curvature Dictated by: Gerald Dolan M.D. on 02/19/2024 at 14:37 Approved by: Gerald Dolan M.D. on 02/19/2024 at 14:40 CT scan - abdomen/pelvis: Radiologist's Impression: Close Abdomen/Pelvis CT (Signed) Gerald Dolan - 02/19/24 Chest CTA (Signed) Gerald Dolan - 02/19/24 Chest X-Ray (Signed) Gerald Dolan - 02/19/[address] (Signed) German Muhammad - 01/20/24 Head/Neck CTA (Signed) Isaac Love - 12/05/23 Shoulder X-Ray (Signed) Isaac Love - 12/05/[address] (Signed) Isaac Love - 12/05/[address] (Signed) Isaac Love - 12/05/23 Chest X-Ray (Signed) Isaac Love - 12/05/[address] (Signed) Akin Vásquez - 12/05/23 Telemetry Strips 12/05/23 Brain MRI (Signed) Akin Vásquez - 11/25/23 Telemetry Strips 11/25/23 Head/Neck CTA (Signed) Isaac Love - 11/25/[address] (Signed) Isaac Love - 11/25/23 Chest X-Ray (Signed) Crista Melo - 04/05/22 Mammogram Screening (Signed) Phi Tadeo - 07/10/21 Chest X-Ray (Signed) Dylan Farah - 04/02/21 Mammogram Diagnostic (Signed) Kobe Jameson - 07/08/20 Breast Ultrasound (Signed) Kobe Jameson - 07/08/[address] (Signed) Jason Romeo - 11/30/17 Launch?Image [address] [address] [address] Scan Report Signed Patient: Layla Chowdary MR#: [id number] : 1940 Acct:[id number] Age/Sex: 83 / F Date of Service: 02/19/24 Loc: ED Accession Number: [id number] Procedure: CT abdomen pelvis w con Ordering Provider: Song Narayanan MD PROCEDURE: CT ABDOMEN PELVIS W CON INDICATIONS: Abdominal pain TECHNIQUE: After the administration of intravenous contrast, axial sections acquired from the lung bases to the pubic symphysis. Coronal and sagittal reformats were performed. For radiation dose reduction, the following was used: automated exposure control, adjustment of mA and/or kV according to patient size. COMPARISON: [facility], CT, CT ANGIO CHEST PE PROTOCOL, 02/19/2024, 14:39. FINDINGS: Image quality: There is artifact associated with the metallic hardware. Artifact from the metallic hardware is reduced by metal reconstruction algorithm. Lower Chest: No significant findings. ABDOMEN: Liver: No solid mass. Gallbladder: Layering gallstones are seen. No additional CT findings of cholecystitis are seen. Biliary ducts: No biliary dilation. Pancreas: No ductal dilation. Spleen: Size is within normal limits. Adrenal Glands: No adrenal nodules. Kidneys and Ureters: No hydronephrosis. No solid mass. No complex renal cystic lesion which requires follow up. Stomach and Bowel: The stomach is decompressed at the time of this study, limiting its evaluation. However, the stomach demonstrates generalized wall thickening. Normal colonic caliber, without significant wall thickening. No dilated loops of small bowel are seen. A normal appendix is noted. Peritoneum: No abnormal intraperitoneal fluid. No free air. Ventral Wall: No significant ventral hernia. Abdominal Nodes: No retroperitoneal or mesenteric adenopathy by size criteria. Vessels: Aorta and inferior vena cava are normal in size. Atherosclerotic calcification is noted. PELVIS: Pelvic Organs: No adnexal masses are seen on either side. Bladder: No bladder wall thickening, accounting for underdistention. Pelvic Nodes: No enlarged lymph nodes. Miscellaneous: There is a left groin hernia seen, which contains fat and nondilated small bowel. Bones: Mild dextroconvex scoliotic curvature is seen. There is a remote T11 central compression deformity. Age-appropriate bony degenerative changes are seen. Right hip arthroplasty hardware is seen. IMPRESSION: Left groin hernia, which contains fat and nondilated small bowel. Abnormal appearing stomach, which demonstrates generalized wall thickening. The stomach is decompressed, which limits its evaluation. Additional findings: Layering gallstones Dextroconvex scoliotic curvature Right hip arthroplasty hardware Dictated by: Gerald Dolan M.D. on 02/19/2024 at 14:41 Approved by: Gerald Dolan M.D. on 02/19/2024 at 14:44 ECG Data Attestation: I personally reviewed and interpreted this ECG as follows: Interpretation: 1411, narrow complex regular tachycardia, computer reading as supraventricular tachycardia with rate 131, QRS 96, QTC 516. 1522, atrial fibrillation with ventricular rate 109, QRS 98, QTC 495, no obvious ST segment depression or elevation changes. 1525, sinus rhythm with first-degree AV block, HI 288, QRS 102, QTC 452. No obvious ST segment elevation. LVH noted. [facility] Narrative Medical decision making narrative: 83-year-old female with abdominal discomfort, arrival with low blood pressure and fast heart rate, no chest pain or shortness of breath. Has generalized weakness complaint. EKG and screening labs sent. IV fluid bolus given. Hypotension and tachycardia. Renal function adequate. Chest x-ray unremarkable, see radiology report. CT angiogram chest, CT IV only abdomen and pelvis imaging requested. Low magnesium 0.9 level noted, IV 2 g bolus now, consider repeat 2 g magnesium bolus. Blood pressure improved after fluid bolus and first 2gm IV magnesium infusion, still tachycardia 100-120 range Serial EKGs with undetermined rhythm, narrow complex tachycardia, appears to be sinus tachycardia on initial EKG, possibly atrial fibrillation on 2nd EKG but sinus tachycardia again noted on subsequent EKG. Blood pressure improved after IV fluids and IV magnesium. CT angiogram chest, no pulmonary embolus, no acute chest changes. See radiology report. CT abdomen and pelvis, no acute changes. See radiology report. Still has some tachycardia 120 range. Consider admission, increased risk of falling given her cervical spine fracture and her humerus fracture. Patient prefers admission. We will contact hospitalist. Ordered magnesium level to be drawn at the end of 4g magnesium total infusion. Case discussed with hospitalist Dr. Sanchez, accepts patient for admission to observation. Patient and are agreeable to this plan. Discharge Plan Departure Patient Disposition: Admitted as Observation Clinical Impression: Tachycardia, Hypomagnesemia Admit Date/Time: 02/19/24 20:08 Admit Provider: Denisse Sanchez
[2024-02-19 14:31] LABS: Add Manual Diff / Slide Review NO; Basophils Absolute Auto 100 /uL (0-100); Basophils Percent Auto 0.6 % (0-2); Eosinophils Absolute Auto 300 /uL (0-450); Eosinophils Percent Auto 2.3 % (2-4); Hematocrit 36.2 % (36-46); Hemoglobin 11.7 g/dL (12.0-16.0); Lymphocytes Absolute Auto 2100 /uL (1100-4500); Lymphocytes Percent Auto 17.8 % (25-40); Mean Corpuscular HGB Conc 32.4 % (30-36); Mean Corpuscular Volume 86.4 fL (80-100); Monocytes Absolute Auto 800 /uL (0-900); Monocytes Percent Auto 6.6 % (3-14); Neutrophils Absolute Auto 8600 /uL (1500-7000); Neutrophils Percent Auto 72.7 % (50-75); Platelet Count 389 X10^3/uL (150-400); Red Blood Cell Count 4.19 X10^6/uL (4.0-5.2); White Blood Cell Count 11.8 X10^3/uL (4.5-11.0)
--- NOTE | 2024-02-19 14:36 | DI.CT.S_ITS ---
PROCEDURE: CT ANGIO CHEST PE PROTOCOL INDICATIONS: Tachycardia, PE protocol TECHNIQUE: After the administration of intravenous contrast, 2 mm thick sections acquired from the pulmonary apices to the posterior costophrenic angles. 3-dimensional maximum intensity projection (MIP) coronal and sagittal reformats were then acquired through the thorax. For radiation dose reduction, the following was used: automated exposure control, adjustment of mA and/or kV according to patient size. COMPARISON: None. FINDINGS: Image quality: Diagnostic. Pulmonary arteries: Pulmonary arteries are normal in size, and demonstrate no intraluminal filling defects to suggest central pulmonary embolism. Lower Neck: No enlarged lymph nodes. Thyroid: No thyroid nodules which require sonographic follow up, per consensus guidelines. Axillae: No enlarged lymph nodes. Chest Wall: Unremarkable. Bones: There is a comminuted left humeral neck fracture. Mild levoconvex scoliotic curvature is noted. Accentuated thoracic kyphosis is seen. Age-appropriate bony degenerative changes are seen. Lungs and Pleura: Generalized patchy ground-glass opacities can be seen, which are primarily seen centrally. No pneumothorax or pleural effusions are seen. No focal infiltrates are seen. Heart: Heart size is mildly enlarged. No pericardial effusion. Moderate to prominent coronary artery calcification can be seen. Thoracic Vessels: No aortic aneurysm. Mediastinum and Claudia: No enlarged lymph nodes. Esophagus: No wall thickening. There is a small hiatal hernia. Upper Abdomen: Calcified granulomas can be seen within the spleen. A few calcified granulomas are also seen within the liver. Layering gallstones are seen. The visualized portions of the upper abdominal structures are otherwise unremarkable for imaging technique. IMPRESSION: No pulmonary embolus. Generalized patchy ground-glass opacities can be seen. Pulmonary edema is suspected. There is mild cardiomegaly. Comminuted left humeral neck fracture. Additional findings: Moderate to prominent coronary artery calcification Small hiatal hernia Prior granulomatous exposure. Layering gallstones Levoconvex scoliotic curvature Dictated by: Gerald Dolan M.D. on 02/19/2024 at 14:37 Approved by: Gerald Dolan M.D. on 02/19/2024 at 14:40
--- NOTE | 2024-02-19 14:37 | DI.CT.S_ITS ---
PROCEDURE: CT ABDOMEN PELVIS W CON INDICATIONS: Abdominal pain TECHNIQUE: After the administration of intravenous contrast, axial sections acquired from the lung bases to the pubic symphysis. Coronal and sagittal reformats were performed. For radiation dose reduction, the following was used: automated exposure control, adjustment of mA and/or kV according to patient size. COMPARISON: [facility], CT, CT ANGIO CHEST PE PROTOCOL, 02/19/2024, 14:39. FINDINGS: Image quality: There is artifact associated with the metallic hardware. Artifact from the metallic hardware is reduced by metal reconstruction algorithm. Lower Chest: No significant findings. ABDOMEN: Liver: No solid mass. Gallbladder: Layering gallstones are seen. No additional CT findings of cholecystitis are seen. Biliary ducts: No biliary dilation. Pancreas: No ductal dilation. Spleen: Size is within normal limits. Adrenal Glands: No adrenal nodules. Kidneys and Ureters: No hydronephrosis. No solid mass. No complex renal cystic lesion which requires follow up. Stomach and Bowel: The stomach is decompressed at the time of this study, limiting its evaluation. However, the stomach demonstrates generalized wall thickening. Normal colonic caliber, without significant wall thickening. No dilated loops of small bowel are seen. A normal appendix is noted. Peritoneum: No abnormal intraperitoneal fluid. No free air. Ventral Wall: No significant ventral hernia. Abdominal Nodes: No retroperitoneal or mesenteric adenopathy by size criteria. Vessels: Aorta and inferior vena cava are normal in size. Atherosclerotic calcification is noted. PELVIS: Pelvic Organs: No adnexal masses are seen on either side. Bladder: No bladder wall thickening, accounting for underdistention. Pelvic Nodes: No enlarged lymph nodes. Miscellaneous: There is a left groin hernia seen, which contains fat and nondilated small bowel. Bones: Mild dextroconvex scoliotic curvature is seen. There is a remote T11 central compression deformity. Age-appropriate bony degenerative changes are seen. Right hip arthroplasty hardware is seen. IMPRESSION: Left groin hernia, which contains fat and nondilated small bowel. Abnormal appearing stomach, which demonstrates generalized wall thickening. The stomach is decompressed, which limits its evaluation. Additional findings: Layering gallstones Dextroconvex scoliotic curvature Right hip arthroplasty hardware Dictated by: Gerald Dolan M.D. on 02/19/2024 at 14:41 Approved by: Gerald Dolan M.D. on 02/19/2024 at 14:44
[2024-02-19] MEDS: ASPIRIN 81 MG CHEW TAB 324 MG PO (14:38)
[2024-02-19 14:41] LABS: NT-proBNP (BNP-Adult 18+) 3050 pg/mL (<450); Troponin I 0.015 ng/mL (0.01-0.034)
[2024-02-19 14:50] LABS: HEMOLYSIS 115 (0-50)
[2024-02-19 14:51] LABS: Aspartate Aminotransferase 28 IU/L (14-36); Magnesium 0.9 mg/dL (1.6-2.3); Potassium 4.2 mmol/L (3.4-5.1)
--- NOTE | 2024-02-19 15:18 | PC.NURSE ---
Pt heart rate shows 85-86 on the monitor for about 5 minutes. Provider made aware. New orders for stat EKG. Upon return with EKG machine pt heart rate is 122.
--- NOTE | 2024-02-19 15:22 | EKG_ITS ---
[place] [id number] [place] [id number] Test Date: 2024-02-19 Pat Name: Layla Chowdary Department: Room: Gender: Female Assistant [employer]: : 1940 Requested By: Order Number: [id number] Reading MD: Stephon Harper Measurements Intervals [place] Rate: 109 P: SD: QRS: -42 QRSD: 98 T: 122 QT: 368 QTc: 495 Interpretive Statements Atrial fibrillation with rapid ventricular response Left axis deviation Moderate voltage criteria for LVH, may be normal variant ( R in aVL , [place] product ) Nonspecific ST and T wave abnormality Electronically Signed On 02-20-2024 11:18:42 PST by Stephon Harper
--- NOTE | 2024-02-19 15:25 | EKG_ITS ---
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
--- NOTE | 2024-02-19 16:26 | PC.NURSE ---
Called pharmacy regarding magnesium order. Pharmacy to update order per protocol.
[2024-02-19] MEDS: MAGNESIUM SULFATE 2 GM/50 ML PIGGYBACK IV ×2 (16:34→18:38)
--- NOTE | 2024-02-19 16:37 | PC.NURSE ---
Omar put in place with this RN and CAMP DISHWASHERAwa Quinonez.
--- NOTE | 2024-02-19 18:26 | PC.NURSE ---
This RN checks on patient. Pt reports feeling much better and denies any lightheadedness or abdominal pain at this time.
--- NOTE | 2024-02-19 18:42 | PC.NURSE ---
Confirmed per provider Oracio and with pharmacist Jose M at [facility] that patient is to receive 4gm of IV magnesium in total at this time. It is to run at a rate of 25 mls/hr. Pt second bag of 2gm IV magnesium is running at this time per APR.
[2024-02-19] MEDS: SODIUM CHLORIDE 0.9% 1,000 ML 75 ML IV (20:39)
--- NOTE | 2024-02-19 20:39 | PC.NURSE ---
Third mag rider is ordered. Per providers note there is to be a lab draw for a repeat Magnesium after the second mag rider is complete. Lab in room at 2030 to draw. Pending results at this time before hanging bag 3.
[2024-02-19 20:48] LABS: Magnesium 1.8 mg/dL (1.6-2.3)
--- NOTE | 2024-02-19 21:47 | P.HP_ITS ---
History of Present Illness History of Present Illness Chief complaint: Afib/ ABD pain Narrative: 83 year old female with past medical history of GERD, NIDDM, HLD, Hypothyroidism, psoriasis and recent C1-C2 fracture (11/2023 currently with collar and plan to repeat xray 02/2023 through [facility]) and left arm fracture with left sling presents with lightheadedness and abodminal pain. Per the patient's report, the patient started to have some lightheadedness and abdominal discomfort around this afternoon. [facility] patient also reports that she has been constipated over the last few days. The patient states that she feels mainly cramping in her abdomen but denies any fever, chills, diarrhea, nausea, vomiting or dysuria. The patient also denies any chest pain or shortness of breath. Of note, patient reports that she normally takes Magnesium supplement daily but two weeks ago, she had her lab check at her PCP and states that her Magnesium level was normal and that she can stop taking the Mag supplement. In our ER, the patient was hemodynamically stable but was tachycardic. Patient's lab however came back with very low Mg at 0.9, sodium [address] abdomen however shows no sign of obstruction but just hernia with fat and bowel. Patient was in SVT but convernted to NSR with 1st Degree AVB after Magnesium was given. Note 4gm of IV Mag Sulfate given and request for admisssion. [facility] Medical History Cervical compression fracture Fracture of proximal end of left humerus Anemia Hyponatremia Osteopenia Dizziness Urinary frequency Vision disorder Psoriasis (~1968) Osteoarthritis (~1989) Chronic cough (~2017) Asthma Allergies Shoulder pain Fracture Foot pain Chronic back pain (~1949) Ankle pain (~2005) Measles Chicken pox Recurrent sinusitis Fibroids History of urinary incontinence (~2010) Hemorrhoid (~1965) GERD (gastroesophageal reflux disease) (~2010) Hypothyroidism (~2009) Diabetes mellitus (~2009) Hypertension (~2010) Head and neck cancer Surgical History Anesthesia History of tonsillectomy (~194) History of laminectomy (~1989) History of bunionectomy of left great toe (~1993) History of right hip replacement (~2015) History of left knee replacement (~2012) Trigger finger of right thumb (~2015) History of cataract removal with insertion of prosthetic lens (~2015) Hx of total knee arthroplasty (~06/15/16) Family History Father Cancer Mother Cancer Diabetes mellitus Brother History of heart disease Hypertension Stroke Sister Cancer Grandfather Pneumonia Grandfather History of heart disease Grandmother Stroke Social History household members: spouse Smoking Status: Former smoker alcohol intake: never Meds Home Medications and Allergies Home Medications Medication Instructions Recorded Confirmed Type coQ10 (ubiquinol) 100 mg capsule 200 mg PO DAILY ##0 10/16/12 02/19/24 History (Qunol Oj CoQ10) ketoconazole 2 % shampoo 1 applic topical PRN PRN Rash 02/04/23 02/19/24 History cholecalciferol (vitamin D3) 25 25 mcg PO DAILY 11/25/23 02/19/24 History mcg (1,000 unit) capsule aspirin 81 mg tablet,delayed 81 mg PO DAILY #30 tabs 11/26/23 02/19/24 Rx release atorvastatin 10 mg tablet (Lipitor) 10 mg PO HS #90 tabs 11/28/23 02/19/24 Rx esomeprazole magnesium 20 mg 20 mg PO DAILY #90 caps 11/28/23 02/19/24 Rx capsule,delayed release (Nexium 24HR) metformin 500 mg tablet 500 mg PO TIDCC #270 tabs 11/28/23 02/19/24 Rx losartan 100 mg tablet 100 mg PO DAILY #30 tabs 01/11/24 02/19/24 Rx fluticasone 250 mcg-salmeterol 50 1 ea inhalation BID 01/17/24 02/19/24 History mcg/dose blistr powdr for inhalation magnesium chloride 500 mg PO QAM 01/17/24 02/19/24 History levothyroxine 100 mcg tablet 100 mcg PO DAILY #90 tabs 01/30/24 02/19/24 Rx liothyronine 5 mcg tablet 5 mcg PO DAILY #90 tabs 01/30/24 02/19/24 Rx Allergies Allergy/AdvReac Type Severity Reaction Status Date / Time adhesive tape [ADHESIVE TAPE] Allergy Severe PAPER TAPE Verified 02/14/24 13:39 CAUSES RASH, BLISTERS Review of Systems Review of Systems ROS: Yes All systems reviewed with the patient and are negative except as otherwise documented Exam Vital Signs (past 8 hours): - 02/19/24 14:00 02/19/24 14:04 02/19/24 14:06 Temperature Pulse Rate 128 H 130 H 83 Respiratory Rate 18 33 H Blood Pressure 75/55 L Pulse Oximetry 98 98 96 Oxygen Delivery Method Room Air Oxygen Flow Rate 02/19/24 14:06 02/19/24 14:08 02/19/24 14:08 Temperature Pulse Rate 132 H Respiratory Rate 32 H Blood Pressure 135/62 81/51 L Pulse Oximetry 95 Oxygen Delivery Method Oxygen Flow Rate 02/19/24 14:10 02/19/24 14:10 02/19/24 14:15 Temperature Pulse Rate 132 H Respiratory Rate 31 H Blood Pressure 81/52 L 88/51 L Pulse Oximetry 93 Oxygen Delivery Method Oxygen Flow Rate 02/19/24 14:15 02/19/24 14:21 02/19/24 14:21 Temperature Pulse Rate 130 H 133 H Respiratory Rate 32 H 25 H Blood Pressure 123/79 Pulse Oximetry 95 95 Oxygen Delivery Method Oxygen Flow Rate 02/19/24 14:29 02/19/24 14:29 02/19/24 14:30 Temperature Pulse Rate 131 H 132 H Respiratory Rate 26 H 24 Blood Pressure 82/62 L Pulse Oximetry 94 97 Oxygen Delivery Method Room Air Oxygen Flow Rate 02/19/24 14:30 02/19/24 14:35 02/19/24 14:35 Temperature Pulse Rate 132 H Respiratory Rate Blood Pressure 98/60 91/54 L Pulse Oximetry Oxygen Delivery Method Oxygen Flow Rate 02/19/24 14:43 02/19/24 14:43 02/19/24 14:50 Temperature Pulse Rate 133 H Respiratory Rate Blood Pressure 98/67 97/54 L Pulse Oximetry 98 Oxygen Delivery Method Oxygen Flow Rate 02/19/24 14:50 02/19/24 15:10 02/19/24 15:20 Temperature Pulse Rate 132 H 81 Respiratory Rate 24 Blood Pressure 101/53 L Pulse Oximetry 98 98 Oxygen Delivery Method Room Air Oxygen Flow Rate 02/19/24 15:20 02/19/24 15:30 02/19/24 15:31 Temperature Pulse Rate 118 H 125 H Respiratory Rate 23 19 Blood Pressure 156/83 H Pulse Oximetry 92 99 Oxygen Delivery Method Oxygen Flow Rate 02/19/24 15:31 02/19/24 15:40 02/19/24 15:40 Temperature Pulse Rate 95 H 129 H Respiratory Rate 23 15 Blood Pressure 149/79 H Pulse Oximetry 97 94 Oxygen Delivery Method Oxygen Flow Rate 02/19/24 15:50 02/19/24 16:00 02/19/24 16:03 Temperature Pulse Rate 124 H 131 H Respiratory Rate 18 23 Blood Pressure 106/54 L Pulse Oximetry 95 95 Oxygen Delivery Method Room Air Oxygen Flow Rate 02/19/24 16:04 02/19/24 16:04 02/19/24 16:11 Temperature Pulse Rate 88 130 H Respiratory Rate Blood Pressure 146/73 H Pulse Oximetry 99 96 Oxygen Delivery Method Oxygen Flow Rate 02/19/24 16:19 02/19/24 16:19 02/19/24 16:25 Temperature Pulse Rate 130 H Respiratory Rate Blood Pressure 97/72 94/52 L Pulse Oximetry 98 Oxygen Delivery Method Oxygen Flow Rate 02/19/24 16:25 02/19/24 16:30 02/19/24 16:30 Temperature Pulse Rate 128 H 112 H Respiratory Rate 16 Blood Pressure 133/78 Pulse Oximetry 94 99 Oxygen Delivery Method Room Air Oxygen Flow Rate 02/19/24 16:36 02/19/24 16:36 02/19/24 16:41 Temperature Pulse Rate 128 H Respiratory Rate Blood Pressure 143/110 H 155/62 H Pulse Oximetry 96 Oxygen Delivery Method Oxygen Flow Rate 02/19/24 16:41 02/19/24 16:50 02/19/24 16:50 Temperature Pulse Rate 127 H 123 H Respiratory Rate 18 Blood Pressure 84/58 L Pulse Oximetry 97 92 Oxygen Delivery Method Oxygen Flow Rate 02/19/24 16:53 02/19/24 16:53 02/19/24 16:59 Temperature Pulse Rate 101 H 88 Respiratory Rate 20 17 Blood Pressure 84/54 L Pulse Oximetry 96 94 Oxygen Delivery Method Oxygen Flow Rate 02/19/24 16:59 02/19/24 17:00 02/19/24 17:01 Temperature Pulse Rate 108 H 103 H Respiratory Rate 18 20 Blood Pressure 143/64 H Pulse Oximetry 91 94 Oxygen Delivery Method Oxygen Flow Rate 02/19/24 17:01 02/19/24 17:10 02/19/24 17:10 Temperature Pulse Rate 98 H Respiratory Rate 19 Blood Pressure 144/89 H 150/65 H Pulse Oximetry 94 Oxygen Delivery Method Oxygen Flow Rate 02/19/24 17:20 02/19/24 17:20 02/19/24 17:30 Temperature Pulse Rate 81 91 H Respiratory Rate 15 18 Blood Pressure 144/65 H Pulse Oximetry 98 97 Oxygen Delivery Method Oxygen Flow Rate 02/19/24 17:31 02/19/24 17:31 02/19/24 17:40 Temperature Pulse Rate 104 H 85 Respiratory Rate 18 21 Blood Pressure 152/65 H Pulse Oximetry 94 94 Oxygen Delivery Method Room Air Oxygen Flow Rate 02/19/24 17:40 02/19/24 17:50 02/19/24 17:50 Temperature Pulse Rate 103 H Respiratory Rate 20 Blood Pressure 146/68 H 144/72 H Pulse Oximetry 94 Oxygen Delivery Method Oxygen Flow Rate 02/19/24 18:00 02/19/24 18:00 02/19/24 18:10 Temperature Pulse Rate 122 H Respiratory Rate 21 Blood Pressure 113/56 L 154/69 H Pulse Oximetry 99 Oxygen Delivery Method Oxygen Flow Rate 02/19/24 18:10 02/19/24 18:20 02/19/24 18:20 Temperature Pulse Rate 75 120 H Respiratory Rate Blood Pressure 119/60 Pulse Oximetry 96 98 Oxygen Delivery Method Room Air Oxygen Flow Rate 02/19/24 18:30 02/19/24 18:30 02/19/24 18:40 Temperature Pulse Rate 74 Respiratory Rate Blood Pressure 151/65 H 113/56 L Pulse Oximetry 98 Oxygen Delivery Method Oxygen Flow Rate 02/19/24 18:40 02/19/24 18:50 02/19/24 18:50 Temperature Pulse Rate 120 H 120 H Respiratory Rate Blood Pressure 115/52 L Pulse Oximetry 97 98 Oxygen Delivery Method Room Air Oxygen Flow Rate 02/19/24 19:00 02/19/24 19:00 02/19/24 19:10 Temperature Pulse Rate 73 Respiratory Rate 22 Blood Pressure 143/65 H 141/64 H Pulse Oximetry 100 Oxygen Delivery Method Room Air Oxygen Flow Rate 02/19/24 19:10 02/19/24 19:20 02/19/24 19:20 Temperature Pulse Rate 71 69 Respiratory Rate Blood Pressure 137/64 Pulse Oximetry 100 97 Oxygen Delivery Method Oxygen Flow Rate 02/19/24 19:30 02/19/24 19:45 Temperature 98.0 F Pulse Rate 71 Respiratory Rate 19 20 Blood Pressure 144/63 H 181/94 H Pulse Oximetry 99 Oxygen Delivery Method Oxygen Flow Rate 0 Oxygen Delivery Method Room Air Oxygen Flow Rate 0 Narrative Exam Narrative: Physical Exam: GENERAL: The patient is not in any acute distressed. Awake and alert. HEENT: Nonicteric sclerae, PERRLA, EOMI. Oropharynx clear. Moist mucous membranes. Conjunctivae appear well perfused. HEART: Regular rate and rhythm without murmurs. No lower extremities edema. LUNGS: Clear to auscultation bilaterally. No wheezing, crackles or rhonchi ABDOMEN: Soft, positive bowel sounds, nontender. SKIN: No rash, no excessive bruising, petechiae, or purpura. NEUROLOGIC: AxO x 3. Cranial nerves II-XII intact without motor/sensory deficit. Objective Labs 02/19/24 14:16 02/19/24 14:16 Labs: Laboratory Results - last 24 hr 02/19/24 02/19/24 14:16 20:33 WBC 11.8 H RBC 4.19 Hgb 11.7 L Hct 36.2 MCV 86.4 MCH 28.0 MCHC 32.4 RDW 18.0 H Plt Count 389 Neut % (Auto) 72.7 Lymph % (Auto) 17.8 L [place] % (Auto) 6.6 Eos % (Auto) 2.3 Baso % (Auto) 0.6 Neut # (Auto) 8600 H Lymph # (Auto) 2100 [place] # (Auto) 800 Eos # (Auto) 300 Baso # (Auto) 100 PT 12.1 INR 1.1 APTT 34 Sodium 129 L Potassium 4.2 Chloride 99 Carbon Dioxide 21 L BUN 9 Creatinine 0.92 Estimated GFR > 60 BUN/Creatinine Ratio 9.8 Glucose 103 Calcium 8.9 Magnesium 0.9 L* 1.8 Total Bilirubin 0.8 AST 28 ALT 14 Alkaline Phosphatase 79 Total Creatine Kinase 34 Troponin I 0.015 NT-Pro-B Natriuret Pep 3050 H Total Protein 6.3 Albumin 3.4 L Globulin 2.9 Albumin/Globulin Ratio 1.2 Lipase 66 Assessment & Plan Assessment & Plan narrative: Severe hypomagnesemia. Admit the patient to medical telemetry under observation. Likely deficient due to not taking home Mag supplement which was stopped about two weeks ago per HPI. Will continue to replacement aggressively as patient Mag in ER was 0.9. Replace and monitor. Abdominal cramping. CT abdomen shows no acute sign that can explain patient symptoms. Cramping could be from severe hypomagnesemia. Clear liquid diet and advance as tolerated. NIDDM. Hold home metformin and monitor glucose. SQ insulin if needed. HLD. Resume home Statin. GERD. Resume home PPI. DVT PPx hep SQ Code status full code Disposition home in 1-2 days Time-Based Coding :: [TOTAL MINUTES] spent with patient and on the chart (including review of chart, obtaining history, exam, reviewing outside data, placing orders, documenting exam and treatment plan, and counseling patient) on [DATE].
--- NOTE | 2024-02-19 22:41 | PC.NURSE ---
NOC: Pt in stable condition, in SR, LS bilateral clear. LAC PIV intact and patent. No pain reported at this time. Report provided to Nurse Jude ([phone]) @ [facility]. Report and transfer paperwork provided to ACLS transport nurse. All belongings with pt and family. Pt escorted to [facility] transport via gurney by appellate court judge and nurse. MD woodson.
[2024-02-20] VITALS (7 sets, daily range): BP systolic 134–175; BP diastolic 58–96; PULSE 76–94; RESP 16–30; TEMP 36.1–36.5; O2SAT 96–99
--- NOTE | 2024-02-20 00:24 | PC.NURSE ---
2109: 2033 lab results for Mg+ 1.8 (WNL), informed MD Johnson who then okay'ed holding final/third scheduled Mg+ rider. Care continues.
--- NOTE | 2024-02-20 07:39 | P.PN_ITS ---
Subjective Subjective Interval history: Summary: 83 year old female with past medical history of GERD, NIDDM, HLD, Hypothyroidism, psoriasis and recent C1-C2 fracture (11/2023 currently with collar and plan to repeat xray 02/2023 through [facility]) and left arm fracture with left sling presents with lightheadedness and abodminal pain. Per the patient's report, the patient started to have some lightheadedness and abdominal discomfort around this afternoon. [facility] patient also reports that she has been constipated over the last few days. The patient states that she feels mainly cramping in her abdomen but denies any fever, chills, diarrhea, nausea, vomiting or dysuria. The patient also denies any chest pain or shortness of breath. Of note, patient reports that she normally takes Magnesium supplement daily but two weeks ago, she had her lab check at her PCP and states that her Magnesium level was normal and that she can stop taking the Mag supplement. In our ER, the patient was hemodynamically stable but was tachycardic. Patient's lab however came back with very low Mg at 0.9, sodium [address] abdomen however shows no sign of obstruction but just hernia with fat and bowel. Patient was in SVT but convernted to NSR with 1st Degree AVB after Magnesium was given. Note 4gm of IV Mag Sulfate given and request for admisssion. S: She was improved. She was constipated and has had no BM for about 6 days. She was still feeling somewhat dizzy. Exam Vital Signs (past 8 hours): - 02/20/24 00:13 02/20/24 05:04 Temperature 97.7 F Pulse Rate 77 77 Respiratory Rate 20 18 Blood Pressure 175/96 H 137/58 L Pulse Oximetry 98 96 Oxygen Flow Rate 0 0 Oxygen Delivery Method Room Air Oxygen Flow Rate 0 Narrative Exam Narrative: NAD, alert and oriented. Fluent speech. Cervical collar in place. Lungs are clear, normal rate and effort. Heart is regular, no murmur gallop or rub. Abdomen is soft, non distended. Extremities are free of edema. Objective Labs 02/19/24 14:16 02/19/24 14:16 Labs: Laboratory Results - last 24 hr 02/19/24 02/19/24 14:16 20:33 WBC 11.8 H RBC 4.19 Hgb 11.7 L Hct 36.2 MCV 86.4 MCH 28.0 MCHC 32.4 RDW 18.0 H Plt Count 389 Neut % (Auto) 72.7 Lymph % (Auto) 17.8 L [place] % (Auto) 6.6 Eos % (Auto) 2.3 Baso % (Auto) 0.6 Neut # (Auto) 8600 H Lymph # (Auto) 2100 [place] # (Auto) 800 Eos # (Auto) 300 Baso # (Auto) 100 PT 12.1 INR 1.1 APTT 34 Sodium 129 L Potassium 4.2 Chloride 99 Carbon Dioxide 21 L BUN 9 Creatinine 0.92 Estimated GFR > 60 BUN/Creatinine Ratio 9.8 Glucose 103 Calcium 8.9 Magnesium 0.9 L* 1.8 Total Bilirubin 0.8 AST 28 ALT 14 Alkaline Phosphatase 79 Total Creatine Kinase 34 Troponin I 0.015 NT-Pro-B Natriuret Pep 3050 H Total Protein 6.3 Albumin 3.4 L Globulin 2.9 Albumin/Globulin Ratio 1.2 Lipase 66 [facility] Medical History Cervical compression fracture Fracture of proximal end of left humerus Anemia Hyponatremia Osteopenia Dizziness Urinary frequency Vision disorder Psoriasis (~1968) Osteoarthritis (~1989) Chronic cough (~2017) Asthma Allergies Shoulder pain Fracture Foot pain Chronic back pain (~1949) Ankle pain (~2005) Measles Chicken pox Recurrent sinusitis Fibroids History of urinary incontinence (~2010) Hemorrhoid (~1965) GERD (gastroesophageal reflux disease) (~2010) Hypothyroidism (~2009) Diabetes mellitus (~2009) Hypertension (~2010) Head and neck cancer Surgical History Anesthesia History of tonsillectomy (~194) History of laminectomy (~1989) History of bunionectomy of left great toe (~1993) History of right hip replacement (~2015) History of left knee replacement (~2012) Trigger finger of right thumb (~2015) History of cataract removal with insertion of prosthetic lens (~2015) Hx of total knee arthroplasty (~06/15/16) Family History Father Cancer Mother Cancer Diabetes mellitus Brother History of heart disease Hypertension Stroke Sister Cancer Grandfather Pneumonia Grandfather History of heart disease Grandmother Stroke Social History household members: spouse and caregiver Smoking Status: Former smoker alcohol intake: never Assessment & Plan Assessment & Plan narrative: 1. Severe hypomagnesemia. Improving. 2. Abdominal cramping. Improving. 3. NIDDM. 4. HLD. 5. GERD. 6. Cervical fracture, stable. PLAN: -Admit the patient to medical telemetry under observation. Likely deficient due to not taking home Mag supplement which was stopped about two weeks ago per HPI. Will continue to replacement aggressively as patient Mag in ER was 0.9. Replace and monitor. -SSI -OOB -oral magnesium -magnesium citrate for bowel movement. AYLA: 02/20. DVT PPx hep SQ Time-Based Coding :: [TOTAL MINUTES] spent with patient and on the chart (including review of chart, obtaining history, exam, reviewing outside data, placing orders, documenting exam and treatment plan, and counseling patient) on [DATE].
--- NOTE | 2024-02-20 08:23 | CM.DANOTE ---
Patient is an 83 yo female who was admitted 02/19/24 for Hypomagnesemia and hernia/constipation. Pt has [facility] for insurance and her PCP is Dr. Surya Pitts. EMR was reviewed. Per , pt with hx of cervical and shoulder fx with neck collar and shoulder sling from Nov 2023 this year and to have IV magnesium and bowel regimen. PT/OT ordered and pending. SW met bedside w/patient and spouse to introduce self and role. Patient reports she lives independently with spouse and their son and DIL live near them and are available to assist as needed. Pt states she has had her fxs since Nov 2023 and was at [facility] and has follow up there and has been using [facility] and is currently open with them and they also hired a private CG for increased assist as well. Pt and spouse confirm their preference is to d/c home with stable and [facility]ume [facility] and do not anticipate any further needs at this time. SW contacted Heather at [facility] and she confirms pt's orders are current and they just need clinicals to review and Resumption Orders at d/c. No barriers identified at this time to patient's safe discharge home w/family to assist; close outpatient f/u recommended. Plan: SW to follow for PT/OT eval and recommendations to confirm safe d/c home with spouse and [facility] and PP CG for assist. ROBERT Hewitt Discharge Planning/Care Management CM Discharge Assessment Start: 02/20/24 08:18 Freq: Status: Active Protocol: Document 02/20/24 08:18 BF (Rec: 02/20/24 08:23 BF [id number]) Discharge Planning Assessment Assigned Reo Asset Manager ROBERT Arizmendi DPOA/Assigned Designee Name spouse Oc Contact Information [phone] Advance Directives? Yes: Yes; POLST Advance Directives on File No History Provided By Patient,Significant Other, Medical Record Has Patient been admitted in last 30 No days? Prior Living Arrangements House Household Members spouse Type of transporation used prior to Relies on Others admit Independent with ADL's No: currently has neck collar and shoulder sling Is patient alert and oriented? Yes Needs Assistance With Meal Prep,Managing Medications ,Home Chores / Shopping Caregiver for Another No Community Services used prior to Physical Therapy,Occupational admission: Therapy,Home Health Nurse DME Already Rented / Owned Cane Patient/Family Preference Home with Home Health Comment Currently open with [facility] from cervical fx and shoulder fx Barriers to Discharge No Discharge Plan Home with Home Health Community Services Physical Therapy,Occupational Therapy,Home Health Nurse Transportation Arrangement Spouse Referrals Initiated Home Health Additional Comment [facility]ume [facility] If patient plan is home with home health Yes : Has signed face to face form been completed? Medicare Choice List Provided Yes Medicare choice list reviewed on patient,family electronic tablet with SNF/HH Preference [facility]ume [facility] Whiteboard Updated in Patient Room with Yes name and ext. # of Reo Asset Manager Review Status In Process Please Provide Date Initial DC 02/20/24 Assessment Was Performed Next Review Type Continued Stay Review
[2024-02-20 09:00] LABS: Magnesium 1.7 mg/dL (1.6-2.3)
--- NOTE | 2024-02-20 09:15 | OT.IP.EVAL ---
Past Medical History (Last Reviewed 02/20/24 @ 07:42 by Stephon Harper MD) Allergies Anemia Ankle pain (~2005) Asthma Cervical compression fracture Chicken pox Chronic back pain (~1949) Chronic cough (~2017) Diabetes mellitus (~2009) Dizziness Fibroids Foot pain Fracture Fracture of proximal end of left humerus GERD (gastroesophageal reflux disease) (~2010) Head and neck cancer Hemorrhoid (~1965) History of urinary incontinence (~2010) Hypertension (~2010) Hyponatremia Hypothyroidism (~2009) Measles Osteoarthritis (~1989) Osteopenia Psoriasis (~1968) Recurrent sinusitis Shoulder pain Urinary frequency Vision disorder Surgical History (Last Reviewed 02/20/24 @ 07:42 by Stephon Harper MD) Anesthesia History of bunionectomy of left great toe (~1993) History of cataract removal with insertion of prosthetic lens (~2015) History of laminectomy (~1989) History of left knee replacement (~2012) History of right hip replacement (~2015) History of tonsillectomy (~1946) Hx of total knee arthroplasty (~06/15/16) Trigger finger of right thumb (~2015) Occupational Therapy Inpatient Evaluation/Re-Eval M1 PT/OT-IP Prior Functional Status Start: 02/20/24 09:27 Freq: NEEDED Status: Active Protocol: Document 02/20/24 09:28 CGR (Rec: 02/20/24 09:48 CGR [id number]) Medical Review Prior Functional Status Medical History Reviewed Yes Communication Pt is a adequate verbal communicator. Mobility and Gait Pt was ambulating with 2WW for tranfers and up to 15 feet a day once a day. She is using her w/c for most mobility. Activities of Daily Living and IADL's Pt was getting significant assist for dressing, bathing and all other IADLs. Pt is able to feed and perform simple ADLs. Social History Household Members spouse Living Arrangements House Number of Floors (Floors) Two Floors Number of Stairs To Enter/Railing? Ramp to enter and can stay on the main level. They do have a chair lift to get upstairs if she needs to go upstairs. Home Environment Standard Height Toilet,Walk in Shower,Ramp Home Equipment Front Wheel Walker,Straight Cane,Manual Wheelchair,Bedside Commode,Tub Transfer Bench, Hand Held Shower,Grab Bars Near Toilet,Grab Bars In Shower Employment Status Retired Additional Social History Comment Pt states she just bought 2 tub transfer benches and needs to test them to see which works best for her. M2 OT-IP Current Condition Start: 02/20/24 09:27 Freq: Status: Active Protocol: Document 02/20/24 09:28 CGR (Rec: 02/20/24 09:48 CGR [id number]) Occupational Therapy Current Condition Current Condition Evaluation Date 02/20/24 Treatment Diagnosis severe magnesium deficiency. recent fall c1-c2 fx and L arm fx. Diagnosis Onset Date 02/19/24 M3 OT- IP Subjective and Pain Start: 02/20/24 09:27 Freq: Status: Active Protocol: Document 02/20/24 09:28 CGR (Rec: 02/20/24 09:48 CGR [id number]) OT- Subjective Occupational Therapy Visit Type Type Initial Evaluation Visit Start Time 08:43 Visit Stop Time 09:15 Notes present throughout session. OT Pain Assessment Pain When Pain Assessed At Rest Pain Present Pain Present Denied Pain M4 OT- IP ADL's Start: 02/20/24 09:27 Freq: Status: Active Protocol: Document 02/20/24 09:28 CGR (Rec: 02/20/24 09:48 CGR [id number]) OT [id number] General Evaluation Self-Feeding Ability Independent Comments OT Self-Feeding Comments breakfast OT ADL-Grooming Comments OT Grooming Comments not performed, declined d/t breakfast tray delivered OT ADL-Oral Care Comments Oral Care Comments not performed, declined d/t breakfast tray delivered OT ADL-Dressing General Eval Lower Body Dressing Ability Moderate Assistance Areas Needing Assistance Socks,Shoes Comments OT Dressing Comments assisted with socks, toe protector and heal protector. Pt prefers to have her shoes on for all mobility. OT ADL-Toileting Comments OT Toileting Comments not performed OT ADL-Bathing Comments OT Bathing Comments not performed M5 OT- IP IADL's Start: 02/20/24 09:27 Freq: Status: Active Protocol: Document 02/20/24 09:28 CGR (Rec: 02/20/24 09:48 CGR [id number]) OT-Instrumental Activities of Daily Living Deficits IADL Deficits Identified No Deficits Home Safety Awareness Awareness of Need for Assistance at Home Good Awareness Ability to Problem Solve Emergency Able to Problem Solve Situations Medication Management Medication Management No Deficits Identified Money Management Money Management No Deficits Identified Meal Preparation Meal Preparation Caregiver Provides Assist Industrial Green Systems Designer Industrial Green Systems Designer Caregiver Provides Assist Driving Driving Comments Pt does not drive M6 OT- IP Functional Cognition Start: 02/20/24 09:27 Freq: Status: Active Protocol: Document 02/20/24 09:28 CGR (Rec: 02/20/24 09:48 CGR [id number]) Cognitive Factors Limiting Selfcare Function Cognitive Ability Level of Alertness Alert Patient Orientation Name,Age,Birthday,Month,Date, Year,Day of Week,Place, Situation Attention Span Ability Capable of Focused Attention, Capable of Sustained Attention OT- Vision and Hearing OT- Hearing Assessment OT- Hearing Assessment WFL OT- Vision Assessment Visual Acuity Glasses All The Time Visual Attentiveness WFL Occular Pursuits WFL M7 OT- IP Mobility and Balance Start: 02/20/24 09:27 Freq: Status: Active Protocol: Document 02/20/24 09:28 CGR (Rec: 02/20/24 09:48 CGR [id number]) OT- Bed Mobility Assessment Supine to Sit Supine to Sit Assist Standby Assistance,Head of Bed Elevated,Bedrails Sit to Supine Sit to Supine Assist Minimal Assistance Scooting Scooting to Edge of Bed Standby Assistance OT-Transfer Assessment Sit to and From Stand Sit to and from Stand Minimal Assistance Transfers Transfer Ability Minimal Assistance Technique Transfer Destination Bed,Chair Transfer Technique Stand Step Pivot Devices Transfer Assistive Devices Gait Belt,Front Wheeled Walker Comments Mobility Comments Pt states she uses the walker at home. Recommend she use a SPC or QC. Will defer to P.T. OT- Gait Assessment Comments Gait Ability Comments not performed OT- Balance Assessment Sitting Balance and Reactions Static Sitting Balance Ability Normal Dynamic Sitting Balance Ability Normal M8 OT- IP Objective Assessments Start: 02/20/24 09:27 Freq: Status: Active Protocol: Document 02/20/24 09:28 CGR (Rec: 02/20/24 09:48 CGR [id number]) OT Gross Range of Motion Upper Extremity Range of Motion ROM Impairments not tested, L arm fx OT Strength Comments Strength Comments not tested, L arm fx OT- Coordination Assessment Upper Extremity Finger to Nose Test Within Functional Limits Finger Tapping Test Within Functional Limits OT-Muscle Tone Assessment Muscle Tone WNL Yes OT Sensation Assessment Edema Edema Absent M9 OT- IP Assessment and Plan Start: 02/20/24 09:27 Freq: Status: Active Protocol: Document 02/20/24 09:28 CGR (Rec: 02/20/24 09:48 CGR [id number]) OT Summary Assessment and Plan Potential Rehabilitation Potential Good Analytic Complexity at Evaluation Moderate Summary OT Impairments Strength,Balance,Functional Mobility,Dressing,Toileting, Bathing,Toilet Transfers, Shower Transfers,Activity Tolerance Progress Towards Goals Progressing Toward Goals Assessment Summary Pt presents as a moderate complexity evaluation s/p admit for severely low magnesium. Pt had a fall on Dec 05, 2023 with resulting C1- c2 fx and L arm fx. Pt went to SNF for ~1 month then returned home. Pt states that she feels like she is getting stronger at home and wants to return home. Pt appears to be at her new baseline of needing assist which is well managed by her and demonstrated in todays session . Pt may benefit from 1-2 more OT sessions while hospitalized. Recommend return to home with and caretakers. Goals Grooming Goal Independent Dressing Goal Minimal Assistance,Drupal Architect, Sock Aid Toileting Goal Minimal Assistance Toilet Transfer Goal Minimal Assistance Days to Meet Goals 2 Frequency of Treatment Other frequency 5x a week Treatment Plan OT Treatment Plan ADL Training,Functional Mobility,Patient/Family Education,Discharge Planning Other Treatment Recommendations and Next ADLs seated at sink, toielting Treatment Focus (this was identified as an area of difficulty, specifically the transfer off the toilet or BSC) Discharge Recommendations OT Discharge Recommendations Home with 20/09 Assist Available Transportation Needs at Discharge Private Vehicle
[2024-02-20] MEDS: SODIUM CHLORIDE 0.9% 1,000 ML 75 ML IV (09:37)
[2024-02-20] MEDS: LOSARTAN 50 MG TABLET 100 MG PO (09:37)
[2024-02-20] MEDS: LIOTHYRONINE 5 MCG TABLET PO (09:37)
[2024-02-20] MEDS: LEVOTHYROXINE 100 MCG TABLET PO (09:38)
[2024-02-20] MEDS: ASPIRIN EC 81 MG TABLET PO (09:38)
[2024-02-20] MEDS: HEPARIN 5,000 UNIT/ML VIAL 5000 UNIT SUBCUT ×2 (09:38→20:33)
[2024-02-20] MEDS: PANTOPRAZOLE DR 40 MG TABLET PO (09:38)
[2024-02-20] MEDS: SODIUM CHLORIDE 0.9% FLUSH 10 ML IV (09:39)
[2024-02-20] MEDS: BUDESONIDE 0.5 MG/2 ML NEB INH ×2 (09:48→19:37)
[2024-02-20] MEDS: ALBUTEROL 2.5 MG/3 ML NEB (ADULT) INH ×2 (09:48→19:37)
[2024-02-20] MEDS: MAGNESIUM CHLORIDE 64 MG TABLET 128 MG PO (11:45)
[2024-02-20] MEDS: MAGNESIUM CITRATE 300 ML SOLUTION 150 ML PO (13:36)
--- NOTE | 2024-02-20 15:02 | PT.IIE ---
Surgical History (Last Reviewed 02/20/24 @ 07:42 by Stephon Harper MD) Anesthesia History of bunionectomy of left great toe (~1993) History of cataract removal with insertion of prosthetic lens (~2015) History of laminectomy (~1989) History of left knee replacement (~2012) History of right hip replacement (~2015) History of tonsillectomy (~194) Hx of total knee arthroplasty (~06/15/16) Trigger finger of right thumb (~2015) Medical History (Last Reviewed 02/20/24 @ 07:42 by Stephon Harper MD) Allergies Anemia Ankle pain (~2005) Asthma Cervical compression fracture Chicken pox Chronic back pain (~1949) Chronic cough (~2017) Diabetes mellitus (~2009) Dizziness Fibroids Foot pain Fracture Fracture of proximal end of left humerus GERD (gastroesophageal reflux disease) (~2010) Head and neck cancer Hemorrhoid (~1965) History of urinary incontinence (~2010) Hypertension (~2010) Hyponatremia Hypothyroidism (~2009) Measles Osteoarthritis (~1989) Osteopenia Psoriasis (~1968) Recurrent sinusitis Shoulder pain Urinary frequency Vision disorder Physical Therapy Inpatient Evaluation/Re-Eval M1 PT/OT-IP Prior Functional Status Start: 02/20/24 09:27 Freq: NEEDED Status: Active Protocol: Document 02/20/24 09:28 CGR (Rec: 02/20/24 09:48 CGR [id number]) Medical Review Prior Functional Status Medical History Reviewed Yes Communication Pt is a adequate verbal communicator. Mobility and Gait Pt was ambulating with 2WW for tranfers and up to 15 feet a day once a day. She is using her w/c for most mobility. Activities of Daily Living and IADL's Pt was getting significant assist for dressing, bathing and all other IADLs. Pt is able to feed and perform simple ADLs. Social History Household Members spouse Living Arrangements House Number of Floors (Floors) Two Floors Number of Stairs To Enter/Railing? Ramp to enter and can stay on the main level. They do have a chair lift to get upstairs if she needs to go upstairs. Home Environment Standard Height Toilet,Walk in Shower,Ramp Home Equipment Front Wheel Walker,Straight Cane,Manual Wheelchair,Bedside Commode,Tub Transfer Bench, Hand Held Shower,Grab Bars Near Toilet,Grab Bars In Shower Employment Status Retired Additional Social History Comment Pt states she just bought 2 tub transfer benches and needs to test them to see which works best for her. M1 PT/OT-IP Prior Functional Status Start: 02/20/24 11:41 Freq: NEEDED Status: Active Protocol: Document 02/20/24 11:42 KJ (Rec: 02/20/24 11:48 KJ [id number]) Medical Review Prior Functional Status Medical History Reviewed Yes Mobility and Gait Uses a hospital bed at home. Able to move to a sitting position using the rails without assistance. Used wheelchair in home most of the time. Ambulated about 25 steps w/hemiwalker with assistance and wheelchair following her. Social History Household Members spouse,caregiver Living Arrangements House Number of Floors (Floors) Two Floors Number of Stairs To Enter/Railing? Ramp to enter and can stay on the main level. They do have a chair lift to get upstairs if she needs to go upstairs. Home Environment Standard Height Toilet,Walk in Shower,Ramp Home Equipment Front Wheel Walker,Straight Cane,Manual Wheelchair,Bedside Commode,Tub Transfer Bench, Hand Held Shower,Hospital Bed, Grab Bars Near Toilet,Grab Bars In Shower Employment Status Retired Additional Social History Comment Pt states she just bought 2 tub transfer benches and needs to test them to see which works best for her. M2 PT-IP Current Condition Start: 02/20/24 11:41 Freq: NEEDED Status: Active Protocol: Document 02/20/24 14:46 KJ (Rec: 02/20/24 15:01 KJ [id number]) Physical Therapy Current Condition Current Condition Evaluation Date 02/20/24 Treatment Diagnosis impaired mobility M3 PT-IP Subjective Start: 02/20/24 11:41 Freq: NEEDED Status: Active Protocol: Document 02/20/24 14:46 KJ (Rec: 02/20/24 15:01 KJ [id number]) Subjective Physical Therapy Visit Type Type Initial Evaluation Visit Start Time 13:56 Visit Stop Time 14:34 Physical Therapy Visit Comments Patient Comments During treatment pt reports feeling dizzy. She reports frequent bouts of dizziness are usual for her. M4 PT-IP Mobility and Gait Start: 02/20/24 11:41 Freq: NEEDED Status: Active Protocol: Document 02/20/24 14:46 KJ (Rec: 02/20/24 15:01 KJ [id number]) PT-Bed Mobility Assessment Rolling Type of Rolling Roll to Right Level of Assist Independent Supine to Sit Supine to Sit Independent Sit to Supine Sit to Supine Moderate Assistance Scooting Scooting to Edge of Bed Standby Assistance PT-Transfer Assessment Sit to and From Stand Sit to and from Stand Contact Guard Assistance Equipment Transfer Assistive Device Gait Belt,Pravin Walker Orthotic/Prosthetic Devices or Brace: Yes Transfers Transfer Destination Chair Transfer Technique Stand Step Pivot Transfer Ability Level of Assist Contact Guard Assistance Gait Assessment Gait Gait Assistance Required: Contact Guard Assist Assistive Devices Assistive Device Gait Belt,Pravin Walker Gait Deviations General Gait Pattern Decreased Stride Length,Narrow Based Gait Factors Limiting Gait Function Factors Limiting Gait Function Decreased Activity Tolerance Comments Gait Comments became dizzy while ambulating PT-Balance Assessment Sitting Balance and Reactions Static Sitting Balance Ability Normal Dynamic Sitting Balance Ability Good Standing Balance and Reactions Static Standing Balance Ability Fair M5 PT-IP Objective Assessments Start: 02/20/24 11:41 Freq: NEEDED Status: Active Protocol: Document 02/20/24 14:46 KJ (Rec: 02/20/24 15:01 KJ [id number]) Gross Range of Motion Upper Extremity ROM Assessment Left Impaired Impairments shoulder ARoM not tested due to fx Lower Extremity ROM Assessment Left Impaired Impairments L foot/ankle Strength Upper Extremity Strength Shoulder R WNL Elbow B WNL Hand B WNL Lower Extremity Strength Assessment Within Functional Limits M6 PT-IP Treatment Start: 02/20/24 11:41 Freq: NEEDED Status: Active Protocol: Document 02/20/24 14:46 KJ (Rec: 02/20/24 15:01 KJ [id number]) Physical Therapy Treatment Exercises Exercises Hand ROM Education Education Provided Safety Other Treatments Other Treatment Performed Started eval in AM however pt chose to defer activity until the afternoon. Pt rec'd in bed . Donned LUE sling. Pt sat at eob w sba. Proceeded to standing at eob, wt shifting and balance assessment. Pt began to ambulate on her own. After several steps the pt reported dizziness and the feeling her heart was racing. I helped her return to eob to check vitals: BP 96/66, O2 100 %, HR 57. continued to have pt sit. BP rechecked at 163/90. Pt reported increasing dizziness and began to fall - RN summoned. Pt was assisted into a supine position where symptoms began to diminish. Pt left in care of RN. M7 PT-IP Assessment and Plan Start: 02/20/24 11:41 Freq: NEEDED Status: Active Protocol: Document 02/20/24 14:46 KJ (Rec: 02/20/24 15:01 KJ [id number]) PT Summary Assessment and Plan Potential Rehabilitation Potential Fair Status of Condition at Evaluation Evolving Summary Impairments Gait,Activity Tolerance Assessment Summary Medical issues interfere with rehab progress. Goals Bed Mobility Goal Independent Transfer Goal Standby Assistance Gait Goal Standby Assistance Gait Distance 25 Frequency of Treatment Frequency Of Treatment Once a Day Treatment Plan Physical Therapy Treatment Plan Gait Training Other Recommendations and Next Treatment monitor vitals during session. Focus work on progressive increase in activity including ambulation Recommendations To Nursing Amount of Assist Needed 1 Person Assist Discharge Recommendations PT Discharge Recommendations Home with 20/09 Assist Available,Home Health
[2024-02-20] MEDS: BISACODYL 10 MG SUPP PR (16:06)
[2024-02-20] MEDS: SODIUM CHLORIDE 0.9% 1,000 ML 125 ML IV (20:08)
[2024-02-20] MEDS: ATORVASTATIN 20 MG TABLET 10 MG PO (20:33)
[2024-02-21] VITALS: BP 160/75; PULSE 88; RESP 20; TEMP 36.8; O2SAT 95
--- NOTE | 2024-02-21 02:58 | PC.NURSE ---
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 Patient is asymptomatic. Notified , PO metoprolol ordered.
[2024-02-21 03:00] VITALS: BP 146/49; PULSE 86; RESP 16; O2SAT 94
[2024-02-21] MEDS: SODIUM CHLORIDE 0.9% 1,000 ML 125 ML IV (03:06)
[2024-02-21] MEDS: METOPROLOL IR 25 MG TABLET PO ×2 (03:52→08:38)
[2024-02-21 04:00] VITALS: BP 133/74; PULSE 78; RESP 12; TEMP 36.8; O2SAT 99
[2024-02-21] MEDS: LEVOTHYROXINE 100 MCG TABLET PO (05:37)
[2024-02-21] MEDS: PANTOPRAZOLE DR 40 MG TABLET PO (05:38)
[2024-02-21 05:48] LABS: Hematocrit 30.9 % (36-46); Hemoglobin 10.3 g/dL (12.0-16.0); Mean Corpuscular HGB Conc 33.2 % (30-36); Mean Corpuscular Hemoglobin 28.5 PG (26-34); Mean Corpuscular Volume 85.9 fL (80-100); Platelet Count 326 X10^3/uL (150-400); Red Cell Distribution Width 18.2 % (11.6-14.8); White Blood Cell Count 15.4 X10^3/uL (4.5-11.0)
[2024-02-21 05:56] LABS: Magnesium 1.6 mg/dL (1.6-2.3)
--- NOTE | 2024-02-21 07:38 | P.PN_ITS ---
Subjective Subjective Interval history: Summary: 83 year old female with past medical history of GERD, NIDDM, HLD, Hypothyroidism, psoriasis and recent C1-C2 fracture (11/2023 currently with collar and plan to repeat xray 02/2023 through [facility]) and left arm fracture with left sling presents with lightheadedness and abodminal pain. Per the patient's report, the patient started to have some lightheadedness and abdominal discomfort around this afternoon. [facility] patient also reports that she has been constipated over the last few days. The patient states that she feels mainly cramping in her abdomen but denies any fever, chills, diarrhea, nausea, vomiting or dysuria. The patient also denies any chest pain or shortness of breath. Of note, patient reports that she normally takes Magnesium supplement daily but two weeks ago, she had her lab check at her PCP and states that her Magnesium level was normal and that she can stop taking the Mag supplement. In our ER, the patient was hemodynamically stable but was tachycardic. Patient's lab however came back with very low Mg at 0.9, sodium [address] abdomen however shows no sign of obstruction but just hernia with fat and bowel. Patient was in SVT but convernted to NSR with 1st Degree AVB after Magnesium was given. Note 4gm of IV Mag Sulfate given and request for admisssion. S: She had a BM last night. Possible VT 6 beats last night. Exam Vital Signs (past 8 hours): - 02/21/24 00:00 02/21/24 03:00 02/21/24 04:00 Temperature 98.2 F 98.3 F Pulse Rate 88 86 78 Respiratory Rate 20 16 12 Blood Pressure 160/75 H 146/49 H 133/74 Pulse Oximetry 95 94 99 Oxygen Flow Rate 0 0 0 Oxygen Delivery Method Room Air Oxygen Flow Rate 0 Narrative Exam Narrative: NAD, alert and oriented. Fluent speech. Lungs are clear, normal rate and effort. Heart is regular, no murmur gallop or rub. Abdomen is soft, non distended. Extremities are free of edema. Objective Labs 02/21/24 05:30 02/19/24 14:16 Labs: Laboratory Results - last 24 hr 02/20/24 02/21/24 08:20 05:30 WBC 15.4 H RBC 3.60 L Hgb 10.3 L Hct 30.9 L MCV 85.9 MCH 28.5 MCHC 33.2 RDW 18.2 H Plt Count 326 Magnesium 1.7 1.6 PFSH Medical History Cervical compression fracture Fracture of proximal end of left humerus Anemia Hyponatremia Osteopenia Dizziness Urinary frequency Vision disorder Psoriasis (~1968) Osteoarthritis (~1989) Chronic cough (~2017) Asthma Allergies Shoulder pain Fracture Foot pain Chronic back pain (~1949) Ankle pain (~2005) Measles Chicken pox Recurrent sinusitis Fibroids History of urinary incontinence (~2010) Hemorrhoid (~1965) GERD (gastroesophageal reflux disease) (~2010) Hypothyroidism (~2009) Diabetes mellitus (~2009) Hypertension (~2010) Head and neck cancer Surgical History Anesthesia History of tonsillectomy (~1946) History of laminectomy (~1989) History of bunionectomy of left great toe (~1993) History of right hip replacement (~2015) History of left knee replacement (~2012) Trigger finger of right thumb (~2015) History of cataract removal with insertion of prosthetic lens (~2015) Hx of total knee arthroplasty (~06/15/16) Family History Father Cancer Mother Cancer Diabetes mellitus Brother History of heart disease Hypertension Stroke Sister Cancer Grandfather Pneumonia Grandfather History of heart disease Grandmother Stroke Social History household members: spouse and caregiver Smoking Status: Former smoker alcohol intake: never Assessment & Plan Assessment & Plan narrative: 1. Severe hypomagnesemia. Improving. 2. Abdominal cramping. Improving. 3. NIDDM. 4. HLD. 5. GERD. 6. Cervical fracture, stable. 7. VT night of 02/19. PLAN: -Admit the patient to medical telemetry under observation. Likely deficient due to not taking home Mag supplement which was stopped about two weeks ago per HPI. Will continue to replacement aggressively as patient Mag in ER was 0.9. Replace and monitor. -SSI -OOB -oral magnesium -magnesium citrate for bowel movement. AYLA: 02/20. DVT PPx hep SQ Time-Based Coding :: [TOTAL MINUTES] spent with patient and on the chart (including review of chart, obtaining history, exam, reviewing outside data, placing orders, documenting exam and treatment plan, and counseling patient) on [DATE].
[2024-02-21 08:00] VITALS: BP 154/84; PULSE 64; RESP 20; TEMP 36.6; O2SAT 98
[2024-02-21] MEDS: LIOTHYRONINE 5 MCG TABLET PO (08:38)
[2024-02-21] MEDS: HEPARIN 5,000 UNIT/ML VIAL 5000 UNIT SUBCUT (08:38)
[2024-02-21] MEDS: MAGNESIUM OXIDE 400 MG TABLET PO (08:38)
[2024-02-21] MEDS: ASPIRIN EC 81 MG TABLET PO (08:38)
[2024-02-21 08:39] VITALS: BP 154/84; PULSE 64
[2024-02-21] MEDS: LOSARTAN 50 MG TABLET 100 MG PO (08:39)
[2024-02-21] MEDS: ALBUTEROL 2.5 MG/3 ML NEB (ADULT) INH (09:00)
[2024-02-21] MEDS: BUDESONIDE 0.5 MG/2 ML NEB INH (09:00)
--- NOTE | 2024-02-21 09:50 | PT.IPTN ---
Physical Therapy Treatment Note M2 PT-IP Current Condition Start: 02/20/24 11:41 Freq: NEEDED Status: Active Protocol: Document 02/20/24 14:46 KJ (Rec: 02/20/24 15:01 KJ [id number]) Physical Therapy Current Condition Current Condition Evaluation Date 02/20/24 Treatment Diagnosis impaired mobility M3 PT-IP Subjective Start: 02/20/24 11:41 Freq: NEEDED Status: Active Protocol: Document 02/21/24 09:50 AB (Rec: 02/21/24 13:03 AB [id number]) Subjective Physical Therapy Visit Type Type Treatment Note Visit Start Time 09:50 Visit Stop Time 10:20 Number of DREDGE HAND Visits 0 Physical Therapy Visit Comments Patient Comments agreeable to do PT M4 PT-IP Mobility and Gait Start: 02/20/24 11:41 Freq: NEEDED Status: Active Protocol: Document 02/21/24 09:50 AB (Rec: 02/21/24 13:03 AB [id number]) PT-Bed Mobility Assessment Supine to Sit Supine to Sit Standby Assistance Sit to Supine Sit to Supine Standby Assistance PT-Transfer Assessment Sit to and From Stand Sit to and from Stand Minimal Assistance,1 Person Assistance,Use of Upper Extremities Equipment Transfer Assistive Device Gait Belt,Pravin Walker Orthotic/Prosthetic Devices or Brace: Yes Comments Mobility Comments pt supine in bed and agreeable to do PT. completed supine to sit SBA. able to sit on EOB SBA. no c/o dizziness. BP : 133/81 VA 58 O2 sat: 97%. adjusted pt's L sling. pt completed sit to stand min A and ambulated in room using [employer] CGA ~ 40 ft. pt stated that her spouse assists her and holds on to her when she gets up. also stated that she has been using her w/c for mobility at home. pt refused to sit on the chair and wants to go back to bed. completed sit to supine SBA. positioned pt in bed. call light and table placed within reach. Gait Assessment Gait Gait Assistance Required: Contact Guard Assist,1 Person Assist Distance (Feet) 40 Able to Maintain Weight Bearing Status Yes During Gait Assistive Devices Assistive Device Gait Belt,Pravin Walker Orthotic/Prosthetic Devices or Brace: Yes Gait Deviations General Gait Pattern Decreased Stride Length, Decreased Feet Clearance Factors Limiting Gait Function Factors Limiting Gait Function Decreased Activity Tolerance, Decreased Strength,Difficulty Following Directions,Limited Range of Motion,Pain,Poor Balance,Poor Safety Awareness M5 PT-IP Objective Assessments Start: 02/20/24 11:41 Freq: NEEDED Status: Active Protocol: Document 02/20/24 14:46 KJ (Rec: 02/20/24 15:01 KJ [id number]) Gross Range of Motion Upper Extremity ROM Assessment Left Impaired Impairments shoulder ARoM not tested due to fx Lower Extremity ROM Assessment Left Impaired Impairments L foot/ankle Strength Upper Extremity Strength Shoulder R WNL Elbow B WNL Hand B WNL Lower Extremity Strength Assessment Within Functional Limits M6 PT-IP Treatment Start: 02/20/24 11:41 Freq: NEEDED Status: Active Protocol: Document 02/21/24 09:50 AB (Rec: 02/21/24 13:03 AB [id number]) Physical Therapy Treatment Education Education Provided Safety M7 PT-IP Assessment and Plan Start: 02/20/24 11:41 Freq: NEEDED Status: Active Protocol: Document 02/21/24 09:50 AB (Rec: 02/21/24 13:03 AB [id number]) PT Summary Assessment and Plan Potential Rehabilitation Potential Fair Summary Impairments Pain,ROM,Strength,Balance, Coordination,Sensation,Tone, Cognition,Bed Mobility, Transfers,Gait,Activity Tolerance Progress Towards Goals Slow Progress due to Medical Issues,Slow Progress due to Activity Tolerance Assessment Summary pt requiring min A with sit to stand and CGA with ambulation using a hemiwalker. pt with previous h/o C1-2 fx and L shoulder fx and has an aspen collar and L sling on. pt has her spouse assists her at home. pt may go home when medically stable. will benefit from HHPT. Goals Bed Mobility Goal Independent Transfer Goal Standby Assistance Gait Goal Standby Assistance Gait Distance 50 Other Goals use of hemiwalker for ambulation Days to Meet Goals 10 Frequency of Treatment Frequency Of Treatment Once a Day Treatment Plan Physical Therapy Treatment Plan Bed Mobility Training,Transfer Training,Gait Training, Therapeutic Exercise,Balance Retraining,Neuromuscular Re-ed Recommendations To Nursing Amount of Assist Needed 1 Person Assist Discharge Recommendations PT Discharge Recommendations Home with 20/09 Assist Available,Home Health Transportation Needs at Discharge Wheelchair/Cabulance
--- NOTE | 2024-02-21 10:18 | OT.IPNOTE ---
Attempted to see x2. On first attempt pt states she has already performed her ADLS and doesn't want to do anything at that time. Upon second attempt, pt just returned to bed with nursing after having BM. Will hold today and continue to follow.
--- NOTE | 2024-02-21 11:17 | PM.DS.1 ---
History of Present Illness History of Present Illness Chief complaint: Afib/ ABD pain Narrative: From H&P: 83 year old female with past medical history of GERD, NIDDM, HLD, Hypothyroidism, psoriasis and recent C1-C2 fracture (11/2023 currently with collar and plan to repeat xray 02/2023 through [facility]) and left arm fracture with left sling presents with lightheadedness and abodminal pain. Per the patient's report, the patient started to have some lightheadedness and abdominal discomfort around this afternoon. [facility] patient also reports that she has been constipated over the last few days. The patient states that she feels mainly cramping in her abdomen but denies any fever, chills, diarrhea, nausea, vomiting or dysuria. The patient also denies any chest pain or shortness of breath. Of note, patient reports that she normally takes Magnesium supplement daily but two weeks ago, she had her lab check at her PCP and states that her Magnesium level was normal and that she can stop taking the Mag supplement. In our ER, the patient was hemodynamically stable but was tachycardic. Patient's lab however came back with very low Mg at 0.9, sodium [address] abdomen however shows no sign of obstruction but just hernia with fat and bowel. Patient was in SVT but convernted to NSR with 1st Degree AVB after Magnesium was given. Note 4gm of IV Mag Sulfate given and request for admisssion. Discharge Providers Provider Date of admission: 02/19/24 20:08 Discharge Date: 02/21/24 Primary care physician: Surya Pitts DO Consults: 02/19/24 19:37 Consult to Occupational Therapy Evaluate & Treat Comment: Physician Instructions: Evaluate and treat Consult to Physical Therapy Evaluate & Treat Comment: Physician Instructions: Evaluate and Treat 02/21/24 10:31 Consult to Home Health Routine Comment: Reason For Exam: resumption of previous services Discharge provider: Stephon Harper MD Summary Hospital Course Discharge Diagnosis: 1. Severe hypomagnesemia. Improved. 2. Abdominal cramping. Resolved. 3. NIDDM. Stable. 4. HLD. Stable. 5. GERD. Stable. 6. Cervical fracture, stable. 7. Orthostatic hypotension, present on admission and resolved. 8. PSVT, present on admission and resolved. 9. One possible 6 beat episode of VT, resolved. Hospital Course: She was admitted with severe hypomagnesemia as well as orthostatic hypotension and intermittent PSVT. The patient was fluid resuscitated and her magnesium is corrected. She had been taking oral magnesium and then recently had stopped this supplement. One day prior to discharge she was still orthostatic and having tachycardia when standing. She was fluid resuscitated, and after another episode of the night metoprolol 25 b.i.d. was started. On the day of discharge her magnesium was 1.6, and repletion followed. She was able to stand and move around without any difficulty. She requested discharge home was felt to be reasonably stable for discharge home. She does take magnesium once a day typically he was asked to take this twice a day for the next week and then go back to once a day. Home health is also going to resume with signature, I have requested a BMP and magnesium approximately 3 days after her discharge. Status at Discharge Cognitive/behavioral status at discharge: oriented Functional status at discharge: uses cane/walker Overall status at discharge: patient is back to baseline Time Spent with Patient Time spent: Greater than 30 minutes Exam Vital Signs (past 8 hours): - 02/21/24 04:00 02/21/24 08:00 02/21/24 08:39 Temperature 98.3 F 97.8 F Pulse Rate 78 64 64 Respiratory Rate 12 20 Blood Pressure 133/74 154/84 H 154/84 H Pulse Oximetry 99 98 Oxygen Flow Rate 0 0 Oxygen Delivery Method Room Air Oxygen Flow Rate 0 Narrative Exam Narrative: NAD, alert and oriented. Fluent speech. Lungs are clear, normal rate and effort. Heart is regular, no murmur gallop or rub. Abdomen is soft, non distended. Extremities are free of edema. Objective ECG Impression: Left axis deviation Moderate voltage criteria for LVH, may be normal variant ( R in aVL , Holcomb product ) Imaging Multiple studies:: Radiologist's impression: Abdomen pelvis CT: Left groin hernia, which contains fat and nondilated small bowel. Abnormal appearing stomach, which demonstrates generalized wall thickening. The stomach is decompressed, which limits its evaluation. Additional findings: Layering gallstones Dextroconvex scoliotic curvature Right hip arthroplasty hardware Chest CTA: No pulmonary embolus. Generalized patchy ground-glass opacities can be seen. Pulmonary edema is suspected. There is mild cardiomegaly. Comminuted left humeral neck fracture. Additional findings: Moderate to prominent coronary artery calcification Small hiatal hernia Prior granulomatous exposure. Layering gallstones Levoconvex scoliotic curvature Chest x-ray: Low lung volumes, without an acute abnormality seen by plain film. Left humeral neck fracture noted. Labs 02/21/24 05:30 02/19/24 14:16 Labs: Laboratory Results - last 24 hr 02/21/24 05:30 WBC 15.4 H RBC 3.60 L Hgb 10.3 L Hct 30.9 L MCV 85.9 MCH 28.5 MCHC 33.2 RDW 18.2 H Plt Count 326 Magnesium 1.6 PFSH Medical History Cervical compression fracture Fracture of proximal end of left humerus Anemia Hyponatremia Osteopenia Dizziness Urinary frequency Vision disorder Psoriasis (~1968) Osteoarthritis (~1989) Chronic cough (~2017) Asthma Allergies Shoulder pain Fracture Foot pain Chronic back pain (~1949) Ankle pain (~2005) Measles Chicken pox Recurrent sinusitis Fibroids History of urinary incontinence (~2010) Hemorrhoid (~1965) GERD (gastroesophageal reflux disease) (~2010) Hypothyroidism (~2009) Diabetes mellitus (~2009) Hypertension (~2010) Head and neck cancer Surgical History Anesthesia History of tonsillectomy (~1946) History of laminectomy (~1989) History of bunionectomy of left great toe (~1993) History of right hip replacement (~2015) History of left knee replacement (~2012) Trigger finger of right thumb (~2015) History of cataract removal with insertion of prosthetic lens (~2015) Hx of total knee arthroplasty (~06/15/16) Family History Father Cancer Mother Cancer Diabetes mellitus Brother History of heart disease Hypertension Stroke Sister Cancer Grandfather Pneumonia Grandfather History of heart disease Grandmother Stroke Social History household members: spouse and caregiver Smoking Status: Former smoker alcohol intake: never Discharge Assessment & Plan Assessment and Plan Assessment: 1. Severe hypomagnesemia. Improved. 2. Abdominal cramping. Resolved. 3. Orthostatic hypotension, present on admission and resolved. 4. PSVT, present on admission and resolved. 5. One possible 6 beat episode of VT, resolved. Plan of Treatment: Discharge home, magnesium twice a day for week and then back to once a day. Addition of metoprolol 25 b.i.d., repeat labs with home health 3 days after discharge including BNP and magnesium. She was encouraged to eat as much as possible and drink more fluids and she has been. Discharge Plan Discharge Plan Patient Disposition: Home Provider Discharge Comment: Stable for discharge on magnesium twice a day and new started on metoprolol for SVT. The patient will have follow up home health labs in approximately 3 days to recheck electrolytes and magnesium. HH: BMP and Mg on 02/22. Take magnesium pills twice a day for 1 week and then back to once a day. Discharge orders & Medications Prescriptions: New metoprolol tartrate 25 mg Tablet 25 mg PO BID Qty: 60 1RF Continued coQ10 (ubiquinol) [Qunol Oj CoQ10] 100 mg Capsule 200 mg PO DAILY Qty: 0 esomeprazole magnesium [Nexium 24HR] 20 mg capsule,delayed release(DR/EC) 20 mg PO DAILY Qty: 90 3RF atorvastatin [Lipitor] 10 mg tablet 10 mg PO HS Qty: 90 3RF metformin 500 mg tablet 500 mg PO TIDCC Qty: 270 1RF losartan 100 mg tablet 100 mg PO DAILY Qty: 30 0RF levothyroxine 100 mcg tablet 100 mcg PO DAILY Qty: 90 3RF liothyronine 5 mcg tablet 5 mcg PO DAILY Qty: 90 3RF magnesium chloride 500 mg PO QAM fluticasone propion-salmeterol 250-50 mcg/dose blister with device 1 ea inhalation BID ketoconazole 2 % shampoo 1 applic topical PRN PRN (Reason: Rash) cholecalciferol (vitamin D3) 25 mcg (1,000 unit) Capsule 25 mcg PO DAILY aspirin 81 mg tablet,delayed release (DR/EC) 81 mg PO DAILY Qty: 30 0RF Follow up/Referrals: Surya Pitts DO [Primary Care Provider] - Diet/Activity/Treatments Diet: Carb-consistent/Diabetic Activity: as tolerated Visit Report/Discharge Packet Instructions: DI for Hypomagnesemia Stand Alone Forms: Patient Portal/API, Stroke Signs & Symptoms Discharge Data Primary Care Provider: Surya Pitts Attending Provider: Denisse Sanchez Admit Date/Time: 02/19/24 20:08
--- NOTE | 2024-02-21 11:42 | CM.DPNOTE ---
DCP Note NURSE AIDE reviewed EMR. Per provider in morning rounds, dc home with [facility] today. NURSE AIDE met with pt in room. confirms eager to dc home. Preference is resume with [facility] . concerns about transport, normally transports with [facility]. NURSE AIDE spoke with [facility] transport, scheduled p/u between 1330 and 1400 to transport home. Have worked with this pt before, will call son Brent for payment information. NURSE AIDE updated RN/pt on transport time. Pt in agreement. report spouse will bring w/c up to room for her. Deny other questions or needs. Spoke with Anette from [facility], updated that pt will dc today with resumptions orders. Anette reports they can accept pt back with resumption orders and dc summary. NURSE AIDE placed resumption order. ADOLPH Arin kindly agreed to fax dc information to [facility] when dc summary signed. P: Dc today with [facility] to pickup between 1330 and 1400, resume with [facility] . No further CM needs identified at this time. ROBERT Kim
[2024-02-21 12:00] VITALS: BP 163/81; PULSE 64; RESP 18; TEMP 36.4; O2SAT 99
--- NOTE | 2024-02-21 13:43 | PC.NURSE ---
pt's IV removed , pt dressed with assistance, all belongings with pt, pt'd is in room. They are requesting to go downstairs to wait in the lobby, REFERENCE AND INSTRUCTION LIBRARIAN is going to wheel pt down shortly.
== END 2024-02-21 13:50 | disposition home or self-care (01) ==
LOC: ED 18:57 → AC 20:09
PROVIDERS: Hospitalist; Admitting Provider Family Medicine; Emergency Provider Emergency Medicine; Family Provider Internal Medicine; PCP Family Medicine; Visit Provider Family Medicine
DX: E83.42 Hypomagnesemia (principal); R07.9 Chest pain, unspecified; R10.9 Unspecified abdominal pain; I95.1 Orthostatic hypotension; E11.9 Type 2 diabetes mellitus without complications; E78.5 Hyperlipidemia, unspecified; K21.9 Gastro-esophageal reflux disease without esophagitis; Z79.84 Long term (current) use of oral hypoglycemic drugs
CPT/HCPCS: 36415; 71045; 71275; 74177; 80053; 82550; 82962; 83690; 83735; 83880; 84484; 85025; 85027; 85610; 85730; 93005; 94640; 96361; 96365; 96366; 96372; 97116; 97162; 97166; 97530; 97535; 99284; G0378; J1644; J3475; J7613; Q9967

== ENCOUNTER → 2024-02-28 13:41 | Outpatient (CLI) | payer MEDICARE, SELFPAY ==
[2024-02-19 20:11] VITALS: BMI 28.1
[2024-02-28 15:13] LABS: BUN Creatinine Ratio 8.3 (6-22); Blood Urea Nitrogen 7 mg/dL (7-17); Carbon Dioxide 25 mmol/L (22-32); Chloride 101 mmol/L (98-107); Estimated Glomerular Filt Rate > 60 mL/min (>60); Glucose 98 mg/dL (80-110); HEMOLYSIS < 15 (0-50); Magnesium 1.4 mg/dL (1.6-2.3); Potassium 3.8 mmol/L (3.4-5.1); Sodium 131 mmol/L (137-145)
== END ==
PROVIDERS: Family Provider Internal Medicine; PCP Family Medicine; Referring Provider Family Medicine; Visit Provider Family Medicine
DX: E83.42 Hypomagnesemia (principal)
CPT/HCPCS: 80048; 83735

== ENCOUNTER → 2024-03-07 09:04 | Outpatient (CLI) | payer MEDICARE, SELFPAY ==
[2023-11-25 16:41] VITALS: BMI 31.1
[2024-02-19 20:11] VITALS: BMI 28.1
--- NOTE | 2024-03-07 09:06 | DI.CT.S_ITS ---
PROCEDURE: CT CERVICAL SPINE WO CON INDICATIONS: f/u compression fracture TECHNIQUE: Noncontrast 3 mm thick sections acquired from the skull base to the T4 level. Sagittal and coronal reformats were then constructed. For radiation dose reduction, the following was used: automated exposure control, adjustment of mA and/or kV according to patient size. COMPARISON: [facility], CT, CT CERVICAL SPINE WO CON, 01/20/2024, 10:28. [facility], CR, XR CERVICAL SPINE 2V OR 3V, 03/07/2024, 9:09. [facility], CT, CT CERVICAL SPINE WO CON, 12/05/2023, 15:44. FINDINGS: Image quality: Excellent. Bones: The previously seen fracture of the lateral mass of C1 is only faintly seen, as on series 2, image 14, with improvement in remodeling since the prior examination. There is a remodeling fracture seen involving the anterior inferior aspect of the C2 level, with partial sclerosis of the fracture line. There is believed to be minimal bony bridging. The appearance is slightly improved compared to the 01/20/2024 examination. No new fracture can be seen. Multiple levels of underlying degenerative change can be seen. Minimal anterolisthesis is seen at C3-C4. There is mild grade 1 anterolisthesis seen at C4-C5, C5-C6, and C6-C7. The T3 vertebral body demonstrates minimal anterior wedge deformity, yet without fracture lines identified. Soft tissues: Prevertebral soft tissues are normal in thickness. No paravertebral hematomas. No apical pneumothoraces. Atherosclerotic calcification is noted. IMPRESSION: Continued improvement of the fracture of the left lateral aspect of C1, which is now only faintly seen. Interval minimal remodeling change of the fracture of the anterior inferior aspect of the C2 vertebral body. Dictated by: Gerald Dolan M.D. on 03/07/2024 at 10:19 Approved by: Gerald Dolan M.D. on 03/07/2024 at 10:25
--- NOTE | 2024-03-07 09:06 | DI.RAD.S_ITS ---
PROCEDURE: XR CERVICAL SPINE 2V OR 3V INDICATIONS: f/u compression fracture TECHNIQUE: 3 view(s) of the cervical spine were acquired. COMPARISON: [facility], CT, CT CERVICAL SPINE WO [facility], 03/07/2024, 9:09. FINDINGS: Evaluation limited due to the presence of the C-collar. Diffuse osseous demineralization. Re-identified minimally displaced fracture at the anterior inferior cortex of the C2 vertebral body. Grade 1 anterolisthesis of C5 on C6. Exaggerated cervical lordosis. Multilevel facet and uncinate arthropathy. Visualized lung apices are clear. IMPRESSION: No significant change in C2 anterior-inferior cortical fracture or alignment of the cervical spine. Dictated by: Jacinto Oconnor M.D. on 03/07/2024 at 16:44 Approved by: Jacinto Oconnor M.D. on 03/07/2024 at 16:47
== END ==
LOC: CT 09:05
PROVIDERS: Family Provider Internal Medicine; PCP Family Medicine; Referring Provider Family Medicine; Visit Provider Family Medicine
DX: S12.040D Displaced lateral mass fracture of first cervical vertebra, subsequent encounter for fracture with routine healing (principal); S12.190D Other displaced fracture of second cervical vertebra, subsequent encounter for fracture with routine healing; M47.812 Spondylosis without myelopathy or radiculopathy, cervical region; M43.12 Spondylolisthesis, cervical region
CPT/HCPCS: 72040; 72125

== ENCOUNTER → 2024-06-19 11:36 | Outpatient (CLI) | payer MEDICARE, SELFPAY ==
[2024-02-19 20:11] VITALS: BMI 28.1
--- NOTE | 2024-06-19 11:38 | DI.MG.S_ITS ---
US axillary only lt, MM diagnostic mammo BI: 06/19/2024 BI-RADS: 1 CLINICAL: 83-year old female for bilateral diagnostic mammogram and left diagnostic breast ultrasound. No Tyrer-Cuzick risk score calculation due to patient's age being over 83 years old. Current reported family history of breast cancer: mother. History of ovarian cancer in one first-degree relative. The patient reports an enlarged lymph node (1 month) in the left breast. PRIOR EXAMS 07/10/2021, 07/08/2020, 10/12/2016, 09/27/2014. MAMMOGRAPHY TECHNIQUE: 2D and 3D (tomosynthesis) digital mammographic views obtained, with additional images as needed for full coverage. Current study was also evaluated with a Computer Aided Detection (CAD) system. ULTRASOUND TECHNIQUE Exam is limited to the left axilla. DENSITY A. The breasts are almost entirely fatty. MAMMOGRAPHY FINDINGS Left: No abnormal lymph nodes are seen in the axilla. Bilateral There are benign diffuse vascular calcifications. There are benign diffuse large araceli-like calcifications. ULTRASOUND FINDINGS Left: Axillary Tail: No abnormal lymph nodes are seen in the axilla. No suspicious sonographic finding present. IMPRESSION: Left * No evidence of malignancy. RECOMMENDATIONS Left * There is no imaging correlate to account for the clinical concern, therefore symptom management or decision to biopsy should be based on clinical assessment. Bilateral * Annual screening mammography. COMMENTS: Findings and recommendations were conveyed to the patient during today's evaluation. OVERALL ASSESSMENT CATEGORY BI-RADS-1: Negative. The [employer] recommends annual screening mammography beginning at age 40 for women with average risk of breast cancer. ELECTRONICALLY SIGNED: Ayse Hill M.D. on 06/19/2024 at 01:14:33 PM PT Interpreting Station ID: [id number]
--- NOTE | 2024-06-19 11:38 | DI.US.S_ITS ---
PROCEDURE: US ABDOMEN LIMITED INDICATIONS: Mass LLQ abdomen - hernia(?) TECHNIQUE: Real-time focused scanning was performed of the abdomen, with image documentation. COMPARISON: [facility], CT, CT ABDOMEN PELVIS W CON, 02/19/2024, 14:39. FINDINGS: At the area of concern, there is a 7.1 x 2.6 x 10.2 cm fat and bowel containing, non reducible ventral abdominal wall hernia through a defect in the external oblique musculature. IMPRESSION: Fat and bowel containing non reducible left ventral abdominal wall 10.2 cm hernia. Dictated by: Jacinto Oconnor M.D. on 06/19/2024 at 15:25 Approved by: Jacinto Oconnor M.D. on 06/19/2024 at 15:27
== END ==
PROVIDERS: Family Provider Internal Medicine; PCP Family Medicine; Referring Provider Family Medicine; Visit Provider Physician Assistant
DX: R92.1 Mammographic calcification found on diagnostic imaging of breast; R92.313 Mammographic fatty tissue density, bilateral breasts; R22.32 Localized swelling, mass and lump, left upper limb; K43.6 Other and unspecified ventral hernia with obstruction, without gangrene; R19.04 Left lower quadrant abdominal swelling, mass and lump; Z80.3 Family history of malignant neoplasm of breast; Z80.41 Family history of malignant neoplasm of ovary
CPT/HCPCS: 76705; 76882; 77066; G0279

== ENCOUNTER → 2024-06-21 06:48 | Outpatient (CLI) | payer MEDICARE, SELFPAY ==
[2024-02-19 20:11] VITALS: BMI 28.1
[2024-06-21 07:51] LABS: Add Manual Diff / Slide Review NO; Basophils Absolute Auto 100 /uL (0-100); Basophils Percent Auto 0.7 % (0-2); Eosinophils Absolute Auto 300 /uL (0-450); Eosinophils Percent Auto 4.3 % (2-4); Hemoglobin 10.6 g/dL (12.0-16.0); Lymphocytes Absolute Auto 1400 /uL (1100-4500); Lymphocytes Percent Auto 17.9 % (25-40); Mean Corpuscular HGB Conc 33.1 % (30-36); Mean Corpuscular Hemoglobin 29.6 PG (26-34); Mean Corpuscular Volume 89.4 fL (80-100); Monocytes Absolute Auto 600 /uL (0-900); Monocytes Percent Auto 8.1 % (3-14); Neutrophils Absolute Auto 5400 /uL (1500-7000); Platelet Count 350 X10^3/uL (150-400); Red Blood Cell Count 3.59 X10^6/uL (4.0-5.2); Red Cell Distribution Width 15.1 % (11.6-14.8); White Blood Cell Count 7.9 X10^3/uL (4.5-11.0)
[2024-06-21 08:15] LABS: Alanine Aminotransferase 14 IU/L (<35); Albumin 3.8 g/dL (3.5-5.0); Albumin Globulin Ratio 1.5 (1.0-2.8); Alkaline Phosphatase 78 U/L (38-126); Aspartate Aminotransferase 21 IU/L (14-36); BUN Creatinine Ratio 13.3 (6-22); Bilirubin Total 0.6 mg/dL (0.2-1.3); Blood Urea Nitrogen 13 mg/dL (7-17); Calcium 9.3 mg/dL (8.4-10.2); Carbon Dioxide 26 mmol/L (22-32); Chloride 97 mmol/L (98-107); Estimated Glomerular Filt Rate 57 mL/min (>60); Globulin 2.6 g/dL (1.7-4.1); Glucose 91 mg/dL (70-99); HEMOLYSIS < 15 (0-50); Magnesium 1.8 mg/dL (1.6-2.3); Potassium 4.8 mmol/L (3.4-5.1); Sodium 129 mmol/L (137-145); Total Protein 6.4 g/dL (6.3-8.2)
[2024-06-21 09:04] LABS: HEMOLYSIS < 15 (0-50); Iron 48 ug/dL (37-170)
[2024-06-21 09:14] LABS: Percent Iron Saturation 18 % (15-50); Total Iron Binding Capacity 273 ug/dL (265-497); Transferrin 222 mg/dL (206-381)
[2024-06-21 09:34] LABS: TSH w/ Reflex to FT4 0.82 uIU/mL (0.47-4.68)
[2024-06-21 09:53] LABS: Vitamin B12 175 pg/mL (239-931)
== END ==
PROVIDERS: Family Provider Internal Medicine; PCP Family Medicine; Referring Provider Family Medicine; Visit Provider Family Medicine
DX: E03.9 Hypothyroidism, unspecified (principal); I10 Essential (primary) hypertension; K21.9 Gastro-esophageal reflux disease without esophagitis; E11.9 Type 2 diabetes mellitus without complications; D64.9 Anemia, unspecified
CPT/HCPCS: 36415; 80053; 82607; 83540; 83550; 83735; 84443; 85025

== ENCOUNTER → 2024-09-28 06:37 | Outpatient (CLI) | payer MEDICARE, SELFPAY ==
[2024-02-19 20:11] VITALS: BMI 28.1
[2024-09-28 08:10] LABS: Blood Urea Nitrogen 17 mg/dL (7-17); Calcium 9.3 mg/dL (8.4-10.2); Carbon Dioxide 25 mmol/L (22-32); Chloride 97 mmol/L (98-107); Cholesterol 162 mg/dL (140-199); Estimated Glomerular Filt Rate 45 mL/min (>60); Glucose 96 mg/dL (70-99); HDL Cholesterol 80 mg/dL (40-60); HEMOLYSIS < 15 (0-50); Magnesium 1.9 mg/dL (1.6-2.3); Potassium 5.2 mmol/L (3.4-5.1); Sodium 128 mmol/L (137-145); Triglycerides 66 mg/dL (35-150)
[2024-10-01 17:11] LABS: Osmolality, Serum 281 mOsmol/kg (280-301)
== END ==
PROVIDERS: Family Provider Internal Medicine; PCP Family Medicine; Referring Provider Internal Medicine Cardiovascular Disease; Visit Provider Internal Medicine Cardiovascular Disease
DX: I10 Essential (primary) hypertension (principal); E87.1 Hypo-osmolality and hyponatremia
CPT/HCPCS: 36415; 80048; 80061; 83735; 83930; 83935

== ENCOUNTER → 2024-10-04 10:30 | Outpatient (CLI) | payer MEDICARE, SELFPAY ==
[2024-02-19 20:11] VITALS: BMI 28.1
[2024-10-04 11:47] LABS: Blood Urea Nitrogen 17 mg/dL (7-17); Calcium 9.4 mg/dL (8.4-10.2); Carbon Dioxide 23 mmol/L (22-32); Chloride 95 mmol/L (98-107); Estimated Glomerular Filt Rate 53 mL/min (>60); Glucose 81 mg/dL (70-99); HEMOLYSIS < 15 (0-50); Potassium 5.1 mmol/L (3.4-5.1); Sodium 128 mmol/L (137-145)
[2024-10-04 11:48] LABS: Estimated Glomerular Filt Rate 53 mL/min (>60)
== END ==
LOC: LAB 10:34
PROVIDERS: Pharmacist; Family Provider Internal Medicine; PCP Family Medicine; Referring Provider Internal Medicine Cardiovascular Disease; Visit Provider Internal Medicine Cardiovascular Disease
DX: I10 Essential (primary) hypertension (principal); R19.04 Left lower quadrant abdominal swelling, mass and lump
CPT/HCPCS: 36415; 80048; 82565

== ENCOUNTER → 2024-10-15 12:35 | Outpatient (CLI) | payer MEDICARE, SELFPAY ==
[2024-02-19 20:11] VITALS: BMI 28.1
--- NOTE | 2024-10-15 | DI.ECHO.S_ITS ---
:Name: LAWANDA BOLAND Study Date: 10/15/2024 Height: 68 in : :[facility] ReadingLocation: Weight: 175 lb : : Gender: Female BSA: 1.9 m2 : :: 1940 Age: 84 yrs BP: 149/67 mmHg: :Reason For Study: LEFT VENTRICULAR HYPERTROPHY : :Ordering Physician: RAMIREZ ADKINS Performed By: Mya Spaulding : :Referring: RAMIREZ ADKINS MD : + + Interpretation Summary An echogenic, mass like structure noted in left atrium measuring up to 2.1cm x 1.5cm, attached to the interatrial septum without any stalk. It is not independently mobile. In four-chamber's view, appears to be attached to the left atrium side of inter-atrial septum. Int two chambers view, it is seen in the posterior aspect of the left atrium. It does not have much calcification. The border of this mass is not very irregular. The left ventricle is normal in size. The left ventricular ejection fraction is normal. The ejection fraction is estimated to be 60-65%. The right ventricle is at the upper limits of normal in size. The right ventricular systolic function is normal. There is mild to moderate tricuspid regurgitation. The right ventricular systolic pressure is estimated to be at least 50 mmHg based on an estimated right atrial pressure of 8 mm Hg. There is mild luminal irregularity and echogenicity in the abdominal aorta, suggestive of aortic atherosclerotic disease. Procedure: A two-dimensional transthoracic echocardiogram with color flow and Doppler was performed. The study quality was technically adequate. There is no prior echocardiogram noted for this patient. The patient was in sinus bradycardia with heart rates between 53-59 bpm during the exam. Left Ventricle: The left ventricle is normal in size. There is mild concentric left ventricular hypertrophy. Proximal septal thickening is noted. There is no echo evidence for significant left ventricular outflow tract obstruction. There is no thrombus. The ejection fraction is estimated to be 60-65%. The left ventricular ejection fraction is normal. There are no focal wall motion abnormalities. Diastolic function could not be accurately assessed due to unobtainable data. Right Ventricle: The right ventricle is at the upper limits of normal in size. The right ventricular systolic function is normal. Atria: The left atrium is severely dilated. An echogenic, mass like structure noted in left atrium measuring up to 2.1cm x 1.5cm, attached to the interatrial septum without any stalk. It is not independently mobile. In four- chamber's view, appears to be attached to the left atrium side of inter-atrial septum. Int two chambers view, it is seen in the posterior aspect of the left atrium. It does not have much calcification. The border of this mass is not very irregular. Right atrial size is normal. There is no Doppler evidence for an interatrial shunt. The thickening of interatrial septum suggests lipomatous hypertrophy. Mitral Valve: There is moderate to severe mitral annular calcification. The mitral valve leaflets appear mildly thickened. Heavy posterior mitral annulus calcification. The mitral valve mean gradient is 3.2 mmHg. No significant mitral valve stenosis. There is trace mitral regurgitation. Aortic Valve: The aortic valve is trileaflet. The aortic valve is moderately calcified. There is discrete nodular thickening of the non- coronary cusp. There is no aortic valve stenosis. No aortic regurgitation is present. Tricuspid Valve: The tricuspid valve is normal. There is mild to moderate tricuspid regurgitation. The right ventricular systolic pressure is estimated to be at least 50 mmHg based on an estimated right atrial pressure of 8 mm Hg. Pulmonic Valve: The pulmonic valve leaflets are thin and pliable; valve motion is normal. There is mild pulmonic regurgitation. Great Vessels: The aortic root is normal size. The dimensions of the ascending aorta are normal. There is mild luminal irregularity and echogenicity in the abdominal aorta, suggestive of aortic atherosclerotic disease. The IVC is of normal diameter and collapses greater than 50% with a sniff. This suggests a low right atrial pressure of 3 mm Hg. Pericardium/ Pleura There is no pericardial effusion. There is no pleural effusion. MMode/2D Measurements & Calculations LVIDd: 5.2 cm LVOT diam: 2.0 cm LVIDs: 3.1 cm Ao root diam: 3.0 cm FS: 41.1 % asc Aorta Diam: 3.2 cm EPSS: 0.44 cm IVSd: 1.1 cm LVPWd: 1.0 cm LV ruiz. diameter/BSA (cm/m^2): 2.7 LV sys. diameter/BSA (cm/m^2): 1.6 LA A2 area: 27.6 cm2 RA long axis: 5.1 cm LA A4 area: 25.3 cm2 RA area: 19.6 cm2 LA length (vol): 5.5 cm RA vol: 63.4 ml LA vol: 108.2 ml RA : 32.9 ml/m2 LA vol index: 56.0 ml/m2 IVC diam: 1.7 cm RVD1 (basal): 4.2 cm RVD2 (mid): 3.6 cm TAPSE: 2.8 cm Doppler Measurements & Calculations Ao V2 max: 135.9 cm/sec LVOT Max Contreras: 93.0 cm/sec Ao V2 mean: 96.6 cm/sec LV V1 max P.5 mmHg Ao max P.4 mmHg LV V1 VTI: 26.3 cm Ao mean P.1 mmHg ADILENE(I,D): 2.3 cm2 Ao V2 VTI: 36.1 cm ADILENE(V,D): 2.2 cm2 sev ratio: 0.73 ADILENE indexed to BSA (cm^2/m^2): 1.2 Med Peak E' Contreras: 4.7 cm/sec TR max contreras: 343.1 cm/sec Lat Peak E' Contreras: 8.3 cm/sec TR max P.1 mmHg MVA(VTI): 2.0 cm2 PA V2 max: 83.9 cm/sec PA V2 mean: 56.6 cm/sec PA mean P.4 mmHg PA pr(Accel): 43.0 mmHg Pulm A Revs Contreras: 23.6 cm/sec MV V2 mean: 83.3 cm/sec Pulm A Revs Dur: 0.12 sec MV mean P.2 mmHg MV V2 VTI: 41.5 cm SV(LVOT): 84.7 ml
== END ==
PROVIDERS: Family Provider Internal Medicine; PCP Family Medicine; Referring Provider Internal Medicine Cardiovascular Disease; Visit Provider Internal Medicine Cardiovascular Disease
DX: I36.1 Nonrheumatic tricuspid (valve) insufficiency (principal); I34.81 Nonrheumatic mitral (valve) annulus calcification; I37.1 Nonrheumatic pulmonary valve insufficiency; I51.7 Cardiomegaly
CPT/HCPCS: 93306